=== PATIENT | female | born 1955 | race Caucasian/White ===

== ENCOUNTER → 2016-05-18 | Outpatient (CLI) | payer BC ==
[~2016-05-18] MED LIST: ADVIN50/60 INH; BACL10TA PO; CLON0.5T3 PO; DEXA2TAB PO; DIPH1TAB; FOLI1TAB7 PO; GABA-113 PO; HYDR-5688 PO; IPRASOL4 INH; KLN1X PO; LEVO150T9 PO; MAGIC1 PO; OPTIRAY 320 IV PRN; PRED10TA PO; PRLSR20 PO; SNG10 PO; SUMA20SP; SUMA6KIT INJ; TRAZ100T29 PO; VALA500T60 PO; XPNIN INH; ZNTT/150 PO; [UNRECOGNIZED DRUG - CODE] INJ
--- NOTE | 2016-05-18 10:22 | DIAGNOSTIC IMAGING REPORT ---
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 COMPARISON: Chest CT 11/14/2015. FINDINGS: There are again noted postoperative changes consistent with a prior left upper lobectomy. There are 2 new tiny groundglass nodules seen within the left lower lobe with the largest measuring 3 mm. These are seen on images 94 and 101 of 306. No focal lung consolidations to suggest pneumonia. Scarlike densities within the right lung apex remain unchanged. No suspicious lytic or blastic osseous lesions. No pleural or pericardial effusions. The spleen, adrenal glands, and pancreas are unremarkable. Multiple hypodense lesions seen scattered throughout the liver. These remain stable and likely represent cysts. Normal caliber thoracic aorta with no evidence for dissection. The central pulmonary arteries are patent. The heart is normal in size. Left hilar soft tissue thickening posterior to the left main pulmonary artery on image 87 is not significantly changed compared to a 2015 CT. This measures up to 9 mm in thickness. Therefore, this favors scarring given the long-term stability. No significant mediastinal or hilar lymphadenopathy. IMPRESSION: 1. There are 2 new groundglass nodule within the left lower lobe with the largest measuring 3 mm. These may represent small foci of inflammatory/infectious change. Short-term chest CT follow-up in 2-3 months can be performed to ensure resolution. 2. Otherwise, no significant change compared to the prior studies. 3. Stable soft tissue thickening posterior to the left main pulmonary artery which may represent scarring given the long-term stability. Electronically signed by: Daren Licona M.D. 05/18/2016 10:21 AM Dictated Date/Time: 05/18/2016 10:07 AM
== END | disposition home or self-care (01) ==
LOC: C.CTS 09:32
PROVIDERS: ATTEND Internal Medicine Pulmonary Disease
DX: C34.92 Malignant neoplasm of unspecified part of left bronchus or lung (principal)

== ENCOUNTER → 2016-05-31 | Outpatient (CLI) | payer BC ==
[~2016-05-31] MED LIST changes: -OPTIRAY 320 IV PRN
== END | disposition home or self-care (01) ==
LOC: C.LAB1850 11:39
PROVIDERS: ATTEND Internal Medicine Pulmonary Disease
DX: R04.2 Hemoptysis (principal)

== ENCOUNTER → 2016-06-25 | Outpatient (CLI) | payer BC ==
[2016-06-25 12:18] LABS: WHITE BLOOD COUNT 5.55 K/uL (4.8-10.8)
[2016-06-25 13:17] LABS: EOSINOPHIL % 2.6 %; NEUTROPHILS % 57.9 %
[2016-06-25 13:18] LABS: MDIFF REQUEST y
[2016-06-25 13:52] LABS: IMMUNOGLOBULN A 43.5 mg/dL (70-400); IMMUNOGLOBULN M 26.5 mg/dL (40-230)
[2016-06-30 12:51] LABS: IMMUNOGLOBULIN E TC 24620E 3 KU/L (<115); LSP % CELLS ANALYZED CD4 47 % (30-61); LSP % OF CELLS ANALYZED CD8 41 % (12-42); LSP ABSOLUTE COUNT CD8 651 cells/uL (180-1170); LSP ABSOLUTE CT CD4 736 cells/uL (490-1740); LSP CD4/CD8 RATIO 1.13 (0.86-5.00); LSP LYMPHOCYTES ABSOLUTE 1575 cells/uL (850-3900); PNEUMOCOCCAL IGG TYPE 1 3.2 mcg/mL; PNEUMOCOCCAL IGG TYPE 12(12F <0.3 mcg/mL; PNEUMOCOCCAL IGG TYPE 14 1.2 mcg/mL; PNEUMOCOCCAL IGG TYPE 19(19F 1.9 mcg/mL; PNEUMOCOCCAL IGG TYPE 23(23F <0.3 mcg/mL; PNEUMOCOCCAL IGG TYPE 26 (6B 1.6 mcg/mL; PNEUMOCOCCAL IGG TYPE 3 <0.3 mcg/mL; PNEUMOCOCCAL IGG TYPE 4 <0.3 mcg/mL; PNEUMOCOCCAL IGG TYPE 5 <0.3 mcg/mL; PNEUMOCOCCAL IGG TYPE 51 (7F 0.4 mcg/mL; PNEUMOCOCCAL IGG TYPE 56(18C 1.1 mcg/mL; PNEUMOCOCCAL IGG TYPE 68 (9V 0.5 mcg/mL; PNEUMOCOCCAL IGG TYPE 8 0.5 mcg/mL; PNEUMOCOCCAL IGG TYPE 9 (9N) <0.3 mcg/mL
== END | disposition home or self-care (01) ==
LOC: C.LAB 11:07
PROVIDERS: ATTEND Pediatrics Pediatric Allergy/Immunology
DX: T36.0X5A Adverse effect of penicillins, initial encounter (principal); X58.XXXA Exposure to other specified factors, initial encounter

== ENCOUNTER → 2016-07-19 | Outpatient (CLI) | payer BC | END | disposition home or self-care (01) | LOC: C.LAB1850 10:45 | PROVIDERS: ATTEND Allergy & Immunology Allergy | DX: R05 Cough (principal) ==

== ENCOUNTER → 2016-08-06 | Outpatient (CLI) | payer BC ==
[~2016-08-06] MED LIST changes: -DIPH1TAB; +DIPH1TAB87
--- NOTE | 2016-08-06 10:23 | DIAGNOSTIC IMAGING REPORT ---
CHEST 2 VIEWS ROUTINE CLINICAL HISTORY: Shortness of breath. Cough. Lung cancer. COMPARISON STUDY: Chest CT May 18, 2016. FINDINGS: Postsurgical findings within the left hemithorax with volume loss are unchanged. There is no consolidation to suggest pneumonia. No pneumothorax or pleural effusion is present. Cardiomediastinal silhouette is normal. IMPRESSION: 1. No acute cardiopulmonary findings. 2. No change in appearance of the chest with stable postoperative findings within the left hemithorax. Electronically signed by: Brandon Ragland M.D. 08/06/2016 10:22 AM Dictated Date/Time: 08/06/2016 10:21 AM
== END | disposition home or self-care (01) ==
LOC: C.RAD1850 10:05
PROVIDERS: ATTEND Physician Assistant Medical
DX: R06.02 Shortness of breath (principal); R05 Cough

== ENCOUNTER → 2016-08-11 | Outpatient (CLI) | payer BC ==
[~2016-08-11] MED LIST changes: +OPTIRAY 320 IV PRN
--- NOTE | 2016-08-11 09:59 | DIAGNOSTIC IMAGING REPORT ---
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 Images are reviewed in the axial, sagittal, and coronal planes. IV contrast was administered without complication. CT DOSE: 310.24 mGy.cm FINDINGS: Thyroid: No significant thyroid tissue is visualized Thoracic aorta: The thoracic aorta is normal in course and caliber, noting standard 3-vessel arch anatomy. No aneurysm or dissection is seen. Pulmonary vasculature: The pulmonary trunk is normal in caliber. There are no central filling defects identified to suggest pulmonary embolus. Note that this examination was not protocoled for the evaluation of pulmonary emboli. HEART: The heart is normal in size and configuration, without pericardial effusion. Lungs and pleural spaces: There are no pleural effusions. There is no focal pulmonary consolidation. There is right apical interstitial scarring. There are postsurgical changes of a left upper lobectomy. The previously described tiny groundglass left lower lobe pulmonary nodules are not visualized the current study. There is stable tiny calcified granulomas within the right lower lobe. Mediastinum: There is persistent precarinal soft tissue measuring 11 mm in short axis. This is equivocally more prominent. There is soft tissue posterior to the left pulmonary artery measuring 12 mm. This remain similar to the preceding study. Batsheva: There is no pathologic hilar adenopathy Axilla: Clear. Upper abdomen: Multiple hepatic cysts remain stable Skeletal structures: There are no lytic or blastic osseous lesions. IMPRESSION: 1. Mild increase in the size of a minimally enlarged precarinal lymph node 2. Stable soft tissue posterior to the left main pulmonary artery 3. The previously identified left lower lobe 3 mm groundglass pulmonary nodules are no longer visualized 4. Multiple hepatic cysts Electronically signed by: Bill Damon M.D. 08/11/2016 9:58 AM Dictated Date/Time: 08/11/2016 9:48 AM
== END | disposition home or self-care (01) ==
LOC: C.CTS 09:14
PROVIDERS: ATTEND Internal Medicine Pulmonary Disease
DX: C34.92 Malignant neoplasm of unspecified part of left bronchus or lung (principal); R59.0 Localized enlarged lymph nodes; K76.89 Other specified diseases of liver

== ENCOUNTER → 2016-09-06 | Outpatient (CLI) | payer BC ==
[~2016-09-06] MED LIST changes: -OPTIRAY 320 IV PRN
--- NOTE | 2016-09-06 10:39 | DIAGNOSTIC IMAGING REPORT ---
PET/CT SKULL-THIGH CLINICAL HISTORY: LUNG CANCER COMPARISON STUDY: 03/24/2015 FINDINGS: The patient was injected with 14 mCi of F 18 labeled FDG. Following the standard induction phase, PET/CT scanning was performed from the skull base the upper thigh region. Activity within neck is felt to be physiologic. Within the chest, there is intensely FDG avid right paratracheal lymph node measuring 1 cm in short axis. This has an SUV maximum of 9.2. There is also an intensely FDG avid focus located posterior to the left main pulmonary artery. This is difficult to measure, but its estimated size is 10 mm in short axis. This has an SUV maximum of 12.2. There are no FDG avid parenchymal nodules. There are subtle airspace opacities within the left upper lobe and left lower lobe. These were not present on the CT scan performed in August 2016. These are therefore likely inflammatory. Within the abdomen and pelvis, there is no pathologic hepatic or adrenal gland activity. There is stable hepatic hypodensities likely representing cysts. There is physiologic urinary tract and bowel activity. There is no pathologic thuy activity. There is no pathologic skeletal activity. IMPRESSION: 1. Intensely FDG avid 1 cm right paratracheal lymph node with SUV maximum of 9.2. A neoplastic etiology is deemed likely 2. Intensely FDG avid soft tissue nodule located posterior to the left main pulmonary artery measuring 1 cm. This is an SUV maximum of 12.2. A neoplastic etiology is deemed a likely. 3. Interval development of mild left upper lobe and left lower lobe airspace opacities, likely inflammatory. Electronically signed by: Bill Damon M.D. 09/06/2016 10:38 AM Dictated Date/Time: 09/06/2016 10:27 AM
== END | disposition home or self-care (01) ==
LOC: C.PET 07:13
PROVIDERS: ATTEND Internal Medicine Hematology & Oncology
DX: C34.92 Malignant neoplasm of unspecified part of left bronchus or lung (principal)

== ENCOUNTER 2016-09-27 10:00 | Observation (INO) | payer BC ==
[2016-09-22 15:39] VITALS: BMI 31.0
[2016-09-27] VITALS (18 sets, daily range): BP systolic 95–124; BP diastolic 58–83; PULSE 61–99; TEMP 36–37.5; O2SAT 91–100; Ht 162.6 cm; Wt 83.2 kg
[~2016-09-27] VITALS: Ht 162.6 cm; Wt 83.2 kg
[~2016-09-27 10:00] MED LIST changes: -DEXA2TAB PO; -DIPH1TAB87; -FOLI1TAB7 PO; -KLN1X PO; -MAGIC1 PO; -PRED10TA PO
[2016-09-27] MEDS ORDERED: DIPH1TAB87 ×2 (10:29)
[2016-09-27] MEDS ORDERED: ONDANSETRON INJ 2 MG/ML 2 ML VIAL ONE (10:31)
[2016-09-27] MEDS ORDERED: DEXAMETHASONE SOD INJ 4 MG/ML VIAL ONE (10:31)
[2016-09-27] MEDS ORDERED: GLYCOPYRROLATE INJ 0.2 MG/ML VIAL ONE (10:31)
[2016-09-27] MEDS ORDERED: LIDOCAINE HCL 2% 2 ML VIAL (20MG/ML) ONE (10:31)
[2016-09-27] MEDS ORDERED: MIDAZOLAM HCL 1 MG/ML 2ML VIAL ONE (10:31)
[2016-09-27] MEDS ORDERED: ROCURONIUM BROMIDE 10 MG/ML 5 ML VIAL ONE (10:31)
[2016-09-27] MEDS ORDERED: PROPOFOL IV EMULSION 10 MG/ML 20 ML VIAL IV ONE (10:31)
[2016-09-27] MEDS ORDERED: NEOSTIGMINE METHYLSULFATE 5 MG/5 ML SYR ONE (10:31)
[2016-09-27] MEDS ORDERED: FENTANYL CITRATE INJ 50 MCG/1 ML 2 ML VIAL ONE (10:31)
[2016-09-27] MEDS: LACTATED RINGER'S 1000ML 1,000 ML IV SCH ×2 (11:00→19:25)
--- NOTE | 2016-09-27 11:04 | History & Physical Bridge Note ---
H&P Re-Evaluation Bridge Note: I have examined the patient, reviewed the History & Physical and in the interval since the performance of the History & Physical I have noted the following changes of clinical significance: No changes noted
[2016-09-27] MEDS ORDERED: SCOPOLAMINE 1.5 MG TDSY TD ONE ×2 (11:23→11:30)
[2016-09-27] MEDS ORDERED: EpHEDrine SULFATE INJ 50 MG/ML AMP IV PRN (11:30)
[2016-09-27] MEDS ORDERED: FENTANYL CITRATE INJ 50 MCG/1 ML 2 ML VIAL IV PRN (11:30)
[2016-09-27] MEDS ORDERED: ATROPINE SULFATE 0.1 MG/ML 5ML SYR IV PRN (11:30)
--- NOTE | 2016-09-27 12:04 | Discharge Instructions ---
Discharge Instructions Date of Service September 27, 2016. Visit Reason for Visit: Abnormal Ct Scan, History Of Lung Cancer Discharge Discharge Diagnosis / Problem: Abnormal Ct Scan, History Of Lung Cancer Discharge Goals Goal(s): Learn about illness Activity Recommendations Activity Limitations: resume your previous activity (in 24 hours) Anesthesia . Post Anesthesia Instructions: If you have had General Anesthesia or IV Sedation: * Do not drive today. * Resume driving when surgeon permits. * Do not make important decisions or sign legal documents today. * Call surgeon for: 1. Temperature elevations greater than 101 degrees F. 2. Uncontrollable pain. 3. Excessive bleeding. 4. Persistent nausea and vomiting. 5. Medication intolerance (nausea, vomiting or rash). * For nausea and vomiting use only clear liquids such as: tea, soda, bouillon until nausea subsides, then gradually increase diet as tolerated. * If you have any concerns or questions, call your surgeon's office. If physician is unavailable and it is an emergency, call 911 or go to the nearest emergency room. . Instructions / Follow-Up Instructions / Follow-Up 1. You may cough up some blood. Call physician if excessive amount noted. 2. Keep your scheduled appointment with Dr. Chambers on October 05, 2016 @ 9:30 am. Diet Recommendations Recommended Home Diet: resume previous diet Procedures Procedures Performed: Endobronchial ultrasound with biopsies Pending Studies Studies pending at discharge: no Medical Emergencies . Who to Call and When: Medical Emergencies: If at any time you feel your situation is an emergency, please call 911 immediately. . Non-Emergent Contact Non-Emergency issues call your: Surgeon Call Non-Emergent contact if: you have a fever . . "Provider Documentation" section prepared by Roddy Reyes. .
--- NOTE | 2016-09-27 13:30 | Anesthesiology Progress Note ---
Anesthesia Post Op Note Date & Time September 27, 2016 at 13:30 Vital Signs Pain Intensity: 0 Vital Signs Past 12 Hours Date Time Temp Pulse Resp B/P Pulse Ox O2 Delivery O2 Flow Rate FiO2 09/27/16 13:05 74 20 113/78 94 Room Air 09/27/16 12:55 79 20 104/74 100 Mask 10 09/27/16 12:45 81 20 111/63 100 Mask 10 09/27/16 12:36 36. 86 20 106/72 99 Mask 10 09/27/16 11:32 61 14 94 Room Air 09/27/16 10:29 36.6 77 18 119/62 98 Room Air Notes Mental Status: alert / awake / arousable, participated in evaluation Pt Amnestic to Procedure: Yes Nausea / Vomiting: adequately controlled Pain: adequately controlled Airway Patency, RR, SpO2: stable & adequate BP & HR: stable & adequate Hydration State: stable & adequate Anesthetic Complications: no major complications apparent
--- NOTE | 2016-09-27 13:37 | DIAGNOSTIC IMAGING REPORT ---
CHEST ONE VIEW PORTABLE CLINICAL HISTORY: s/p EBUS COMPARISON STUDY: Chest CT August 11, 2016. FINDINGS: Mediastinal surgical clips are noted. There is no pneumothorax. No pneumomediastinum is identified. Cardiomediastinal silhouette is stable. There is no evidence of pulmonary edema. IMPRESSION: No pneumothorax identified. Electronically signed by: Brandon Ragland M.D. 09/27/2016 1:36 PM Dictated Date/Time: 09/27/2016 1:35 PM
[2016-09-27] MEDS ORDERED: ACETAMINOPHEN 325 MG TAB PO PRN (15:00)
[2016-09-27] MEDS ORDERED: LEValbuterol HFA 15GM INHALER INH PRN (15:00)
[2016-09-27] MEDS ORDERED: HYDROCODONE/ACETAMOPHEN 5/325MG TAB PO PRN (15:00)
[2016-09-27] MEDS ORDERED: SUMATRIPTAN SUCCINATE 6 MG/0.5 ML VIAL SC PRN (15:00)
[2016-09-27] MEDS ORDERED: BACLOFEN 10 MG TAB PO PRN (15:00)
[2016-09-27] MEDS ORDERED: ALBUT/IPRATROP 3MG/0.5MG NEB 3 ML VIAL INH PRN (15:00)
[2016-09-27] MEDS ORDERED: ONDANSETRON INJ 2 MG/ML 2 ML VIAL IV PRN (15:00)
[2016-09-27] MEDS ORDERED: CLONAZEPAM 0.5 MG TAB PO PRN (15:00)
[2016-09-27] MEDS ORDERED: [UNRECOGNIZED DRUG - REMARK] INJ SCH (15:00)
[2016-09-27 17:47] LABS: PARTIAL THROMBOPLASTIN RATIO 1.1; PROTHROMBIN TIME (PATIENT) 10.6 SECONDS (9.0-12.0)
[2016-09-27] MEDS ORDERED: IV FLUIDS COMPLETED PRN (18:00)
[2016-09-27] MEDS ORDERED: ENOXAPARIN 40 MG/0.4 ML SYR SQ SCH (18:30)
[2016-09-27] MEDS ORDERED: ACETAMINOPHEN IV 1000MG/100ML IV PRN (19:15)
[2016-09-27] MEDS ORDERED: NURSING VERBAL MED ORDER ONE (19:15)
[2016-09-27] MEDS ORDERED: LIDOCAINE HCL 2% VISC SOLN 20 ML UDC PO PRN (19:30)
[2016-09-27] MEDS ORDERED: TRAZODONE HCL 100 MG TAB PO SCH (21:00)
[2016-09-27] MEDS ORDERED: MONTELUKAST SOD 10 MG TAB PO SCH (21:00)
[2016-09-27] MEDS: FLUTICASONE/SALMETEROL (ADVAIR) 500/50 INH 14 PUFF INH SCH (21:52)
[2016-09-27] MEDS: GABAPENTIN 300 MG CAP PO SCH (21:58)
[2016-09-27] MEDS: RANITIDINE HCL 150 MG TAB PO SCH (21:59)
--- NOTE | 2016-09-28 01:27 | OPERATIVE REPORT ---
DATE OF OPERATION: 09/27/2016 PREOPERATIVE DIAGNOSES: 1. Hypermetabolic mediastinal lymphadenopathy. 2. History of left upper lobectomy for stage IIIA lung carcinoma 3 years ago. POSTOPERATIVE DIAGNOSES: Probable metastatic lung carcinoma, mediastinal lymph node. PROCEDURE: Endobronchial ultrasound with biopsy. SURGEON: Jani BUNN MD. ELECTROMYOGRAPHIC TECHNICIAN: Kunal Soliz, Respiratory Therapy. ANESTHESIA: General anesthesia with a laryngeal mask airway. SPECIFICS OF PROCEDURE: This is a 61-year-old female who has a history of left upper lobe carcinoma resected via thoracotomy 3 years ago. Her level 5 node was found to be positive for carcinoma. The patient also suffered a vocal cord paralysis, and this was removed. She did undergo an injection, and her voice was nice and strong in the office. The patient was found to have a mediastinal lymphadenopathy. PET scan showed hypermetabolic activity. I was asked to evaluate her for an endobronchial ultrasound by Dr. Jani Castaneda and Dr. Ricardo Villaseñor. We brought her in to have this done this morning. She underwent an uncomplicated endobronchial ultrasound. She had no endobronchial lesions. The rapid onsite evaluation felt that the right level 2, right level 4 and left level 11 were all suspicious for carcinoma. We did get lymph nodes back with several lymph biopsies. Tolerated it well. PROCEDURE: The patient was brought to the operating room and placed in supine position. General anesthesia induced, and a laryngeal mask airway was placed. After appropriate timeout had been called, and prophylactic antibiotics given, the endobronchial ultrasound was placed. Getting above the cords, it did not appear that she had movement of the left vocal cord, but it has been medialized. She did have a good cough with this, and I did anesthetize her with lidocaine. We then went into the trachea, and there were no endobronchial lesions noted going down to tertiary airways and slowly coming back. There was really no mucus noted either. I then switched to use the ultrasound to localize a right level 2 node which was rather small, but we were able to biopsy this several times. We then went down to a larger level 4 node and biopsied this several times. I then switched over to the left side, this was fairly easy node to biopsy at the level 11 area medially. All of these lymph nodes were suspicious for carcinoma. We really got into no bleeding with this. I irrigated out both airways and slowly pulled back the bronchoscope. There was no significant bleeding or mucus formation. She tolerated it well. The laryngeal mask airway was removed in the operating room. I attest to the content of the Intraoperative Record and any orders documented therein. Any exceptions are noted below. KEO
[2016-09-28 05:45] VITALS: BP 109/73; PULSE 87; TEMP 36.7; O2SAT 97
[2016-09-28] MEDS ORDERED: LEVOTHYROXINE 125 MCG TAB PO SCH (06:00)
[2016-09-28 07:32] VITALS: BP 109/70; PULSE 78; TEMP 36.7; O2SAT 96
--- NOTE | 2016-09-28 08:12 | Anesthesiology Progress Note ---
Anesthesia Post Op Note Date & Time September 28, 2016 at 08:13 Vital Signs Vital Signs Past 12 Hours Date Time Temp Pulse Resp B/P Pulse Ox O2 Delivery O2 Flow Rate FiO2 09/28/16 07:32 36.7 78 16 109/70 96 Room Air 09/28/16 05:45 36.7 87 16 109/73 97 Room Air 09/28/16 00:15 Room Air 09/27/16 22:55 36.6 99 16 98/63 94 Room Air 09/27/16 21:50 97 Room Air 09/27/16 20:16 95 Room Air Notes Mental Status: alert / awake / arousable, participated in evaluation Pt Amnestic to Procedure: Yes Nausea / Vomiting: adequately controlled Pain: adequately controlled Airway Patency, RR, SpO2: stable & adequate BP & HR: stable & adequate Hydration State: stable & adequate Anesthetic Complications: no major complications apparent
[2016-09-28] MEDS: FLUTICASONE/SALMETEROL (ADVAIR) 500/50 INH 14 PUFF INH SCH (08:31)
[2016-09-28] MEDS: GABAPENTIN 300 MG CAP PO SCH (08:32)
[2016-09-28] MEDS: RANITIDINE HCL 150 MG TAB PO SCH (08:33)
[2016-09-28] MEDS ORDERED: ENOXAPARIN 40 MG/0.4 ML SYR SQ SCH (09:00)
[2016-09-28] MEDS ORDERED: PANTOprazole SOD 40 MG TAB PO SCH (09:00)
--- NOTE | 2016-09-28 09:57 | DISCHARGE SUMMARY ---
HOSPITAL COURSE: Angle Cedeno is a very nice 61-year-old female who underwent a left upper lobectomy for a nonsmall cell lung carcinoma almost 3 years ago in 2013. She is under the care of Dr. Ricardo Villaseñor from an oncology standpoint. The patient presented back as she had hypermetabolic lymph nodes, but really no symptoms except for a persistent cough. On 09/27/2016, I brought the patient in and did an endobronchial ultrasound. I biopsied the right level 2, right level 4, left level 11 lymph node areas. I get that there are lymphocytes and suspicious cells on each level. The patient tolerated this fine. We did use a laryngeal mask airway and did not intubate her. Her left cord did not move well, but this is a chronic problem. At this point, I removed her laryngeal mask airway and she appeared to do fine. The problem was she was wheezing and relatively hypoxic with a sat of 88%. She was also very anxious. She did not improve over several hours, so I admitted her for observation. She was brought up on the third floor. She really did not have much of a gag reflex. It is unclear to me why this was the case, but she was not aspirating and tolerated a breakfast in the morning afterwards. I ended up discharging her on the morning after. She was brought into the hospital under an observational status. She looked fine in the next morning. She really had minimal wheezing in her left base but otherwise she looked quite good and was ready to go home. I explained to her that the cells were suspicious. We would have a more definitive answer next week. I will see her back next week in the office. She is to resume all of her regular medications.
[2016-09-28 11:11] VITALS: BP 105/68; PULSE 84; TEMP 36.8; O2SAT 97
[2016-09-28 11:51] VITALS: BP 105/68; PULSE 84; TEMP 36.8; O2SAT 97
[2016-10-08] MEDS ORDERED: FOLI1TAB7 PO (09:55)
[2016-10-08] MEDS ORDERED: DEXA2TAB PO (09:55)
[2016-11-22] MEDS ORDERED: MAGIC1 PO (13:10)
[2017-01-05] MEDS ORDERED: PRED10TA PO (13:57)
== END 2016-09-28 14:29 | disposition home or self-care (01) ==
LOC: ENRESERVTM → ENRESERVDT → C.ACU 10:00 → C.MSW 10:20
PROVIDERS: ADMIT Surgery; ATTEND Surgery
DX: C79.89 Secondary malignant neoplasm of other specified sites (principal); R59.0 Localized enlarged lymph nodes; R05 Cough; J39.8 Other specified diseases of upper respiratory tract; Z85.118 Personal history of other malignant neoplasm of bronchus and lung; Z80.52 Family history of malignant neoplasm of bladder; Z80.42 Family history of malignant neoplasm of prostate; J45.909 Unspecified asthma, uncomplicated; K21.9 Gastro-esophageal reflux disease without esophagitis; E03.9 Hypothyroidism, unspecified; Z90.2 Acquired absence of lung [part of]; Z82.3 Family history of stroke; Z83.3 Family history of diabetes mellitus; F41.9 Anxiety disorder, unspecified; G47.33 Obstructive sleep apnea (adult) (pediatric); M19.90 Unspecified osteoarthritis, unspecified site; Z86.73 Personal history of transient ischemic attack (TIA), and cerebral infarction without residual deficits; D84.8 Other specified immunodeficiencies

== ENCOUNTER → 2016-10-01 | Outpatient (CLI) | payer BC ==
[~2016-10-01] MED LIST changes: +DEXA2TAB PO; +DIPH1TAB87; +FOLI1TAB7 PO; +MAGIC1 PO; +PRED10TA PO
== END | disposition home or self-care (01) ==
LOC: C.PATHSPEC 10:43
PROVIDERS: ATTEND Pathology Anatomic Pathology & Clinical Pathology
DX: C34.90 Malignant neoplasm of unspecified part of unspecified bronchus or lung (principal)

== ENCOUNTER → 2016-10-11 | Outpatient (CLI) | payer BC | END | disposition home or self-care (01) | LOC: C.LAB 16:36 | PROVIDERS: ATTEND Pediatrics Pediatric Allergy/Immunology | DX: D83.9 Common variable immunodeficiency, unspecified (principal) ==

== ENCOUNTER → 2016-10-13 | Outpatient (CLI) | payer BC ==
[~2016-10-13] MED LIST changes: +OPTIRAY 320 IV PRN
--- NOTE | 2016-10-13 09:49 | DIAGNOSTIC IMAGING REPORT ---
CT SCAN OF THE BRAIN COMBO CLINICAL HISTORY: Headache. Lung cancer history. COMPARISON STUDY: MRI of the brain dated 11/15/2013. CT of the brain dated 11/15/2008. TECHNIQUE: Axial CT scan of the brain is performed from the vertex to the skull base before and following the IV administration of 93 cc of Optiray 320. Automated dose control exposure was utilized. CT DOSE: 1277.12 mGycm FINDINGS: Brain parenchyma: The brain parenchyma is normal in appearance. There is no hemorrhage, mass effect, or evidence of acute territorial ischemia by CT criteria. No enhancing lesion is seen on the postcontrast images. Booker-white matter is preserved. No extra-axial fluid collection is seen. Ventricles, sulci, cisterns: Normal in configuration. Intracranial vasculature: There is atherosclerotic calcification of the cavernous carotid arteries. Calvarium: Unremarkable. Sinuses and mastoids: The visualized paranasal sinuses are clear. The mastoid air cells are well pneumatized. Orbits: The bony orbits are grossly intact. IMPRESSION: There is no hemorrhage, enhancing mass, or evidence of acute territorial ischemia by CT criteria. Electronically signed by: Raul Grider M.D. 10/13/2016 9:47 AM Dictated Date/Time: 10/13/2016 9:40 AM
== END | disposition home or self-care (01) ==
LOC: C.CTS 09:18
PROVIDERS: ATTEND Internal Medicine Hematology & Oncology
DX: C34.12 Malignant neoplasm of upper lobe, left bronchus or lung (principal)

== ENCOUNTER → 2016-12-31 | Outpatient (CLI) | payer BC ==
[~2016-12-31] MED LIST changes: +DIPH1TAB; -DIPH1TAB87; -OPTIRAY 320 IV PRN
--- NOTE | 2016-12-31 12:37 | DIAGNOSTIC IMAGING REPORT ---
TWO VIEW CHEST CLINICAL HISTORY: Non-small cell lung cancer. FINDINGS: PA and lateral chest radiographs are compared to study dated 09/27/2016 and correlated with chest CT dated 08/11/2016. The heart is mildly enlarged and there is atherosclerotic calcification of the thoracic aorta. The pulmonary vasculature is noncongested. There are postoperative changes and volume loss in the left lung consistent with a history of left-sided pulmonary resection. There is mild compensatory hyperinflation of the right lung. There is no airspace consolidation typical for pneumonia. No pleural effusion or pneumothorax is seen. Mild apical scarring is again noted. The skeletal structures are osteopenic. The bony thorax appears intact. Thoracic scoliosis is observed. IMPRESSION: Mild cardiac enlargement and postoperative changes from left-sided pulmonary resection as above. There is no acute cardiopulmonary abnormality and there has been no significant change from 09/27/2016. Electronically signed by: Raul Grider M.D. 12/31/2016 12:36 PM Dictated Date/Time: 12/31/2016 12:34 PM
== END | disposition home or self-care (01) ==
LOC: C.RAD 11:58
PROVIDERS: ATTEND Internal Medicine Hematology & Oncology
DX: C34.12 Malignant neoplasm of upper lobe, left bronchus or lung (principal); R06.00 Dyspnea, unspecified; Z90.2 Acquired absence of lung [part of]; Z79.899 Other long term (current) drug therapy

== ENCOUNTER → 2017-01-03 | Outpatient (CLI) | payer BC ==
[~2017-01-03] MED LIST changes: +OPTIRAY 320 IV PRN
--- NOTE | 2017-01-03 16:12 | DIAGNOSTIC IMAGING REPORT ---
CT OF THE ABDOMEN AND PELVIS WITH CONTRAST CLINICAL HISTORY: Lung cancer. COMPARISON STUDY: PET/CT September 06, 2016 TECHNIQUE: Following IV administration of 92 mL of Optiray-320, axial images of the abdomen and pelvis were obtained from the lung bases to the proximal femurs. Images were reviewed in the axial, sagittal, and coronal planes. IV contrast was administered without complication. A dose lowering technique was utilized adhering to the principles of ALARA. Oral contrast was administered. CT DOSE: 673.06 mGy.cm FINDINGS: The chest will be reported separately. Numerous hepatic lesions are noted. The larger lesions measure water attenuation and are consistent with cysts. The smaller lesions are too small characterize but were present on prior exams. These are benign. The spleen, adrenal glands, kidneys and pancreas are normal with exception of numerous subcentimeter renal lesions which are too small to characterize. However, these are likely benign. The caliber and wall thickness of small and large bowel are normal. There is no abdominal or pelvic lymphadenopathy. There is no ascites. There is no evidence for a bowel obstruction. No biliary or pancreatic ductal dilatation is identified. The uterus is not visualized. The appendix is normal. No suspicious skeletal lesions are identified. IMPRESSION: No evidence of metastatic disease within the abdomen or pelvis. Electronically signed by: Brandon Ragland M.D. 01/03/2017 4:11 PM Dictated Date/Time: 01/03/2017 4:05 PM
--- NOTE | 2017-01-03 16:18 | DIAGNOSTIC IMAGING REPORT ---
CHEST CT WITH CONTRAST HISTORY: Lung cancer follow-up study TECHNIQUE: Multiaxial CT images of the chest were performed following the intravenous administration of contrast. A dose lowering technique was utilized adhering to the principles of ALARA. COMPARISON: PET/CT 09/06/2016, CT chest 08/11/2016. FINDINGS: No dominant thyroid nodule identified. There is been interval decrease in size of the previously noted right paratracheal lymph node, previously 1.7 x 1.1 cm, now measuring 1.1 x 0.5 cm. Previously noted focal soft tissue attenuation within the region of the AP window has also decreased in size, previously 2.0 x 1.2 cm, now 1.4 x 0.8 cm. Surgical suture material is now seen within this distribution. No new pathologic adenopathy identified. Heart is normal in size without pericardial effusion. Thoracic aorta is normal in course and caliber without dissection or aneurysm. Pulmonary arterial tree is not well opacified, however demonstrates no focal filling defects to suggest pulmonary embolus. No pneumothorax, pleural effusion or focal airspace consolidation. No suspicious nodules or pulmonary masses are identified. There is mild subsegmental bibasilar atelectasis. Post surgical changes of prior left upper lobectomy are again noted the central airways are patent. Multiple hepatic cysts are redemonstrated. Soft tissues are unremarkable. There is oral contrast the upper abdomen. No suspicious lytic or blastic bony lesions to suggest metastasis. There is mild convex right curvature of the midthoracic spine. IMPRESSION: 1. No acute intrathoracic abnormality identified. No evidence of metastatic disease or new adenopathy. 2. Postsurgical changes of prior left upper lobectomy. Interval decrease in size of the previously noted FDG avid right paratracheal lymph node. Previously noted intensely FDG avid soft tissue nodule posterior to the left main pulmonary artery has also markedly decreased in size suggesting response to therapy. 3. Multiple hepatic cysts redemonstrated. Electronically signed by: Francisco Javier Hussein M.D. 01/03/2017 4:16 PM Dictated Date/Time: 01/03/2017 4:08 PM
== END | disposition home or self-care (01) ==
LOC: C.CTS 15:32
PROVIDERS: ATTEND Internal Medicine Hematology & Oncology
DX: C34.12 Malignant neoplasm of upper lobe, left bronchus or lung (principal); K76.89 Other specified diseases of liver

== ENCOUNTER → 2017-01-05 | Outpatient (CLI) | payer BC ==
[~2017-01-05] MED LIST changes: -OPTIRAY 320 IV PRN
[2017-01-05 13:35] VITALS: BP 104/69; PULSE 93; TEMP 36.9; O2SAT 100
--- NOTE | 2017-01-05 16:17 | Radiation Oncology Follow-Up ---
Radiation Oncology Follow-Up Date of Visit Jan 05, 2017. 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 Alejandre is a pleasant 61-year-old female who was initially diagnosed with lung cancer in 2013. The patient initially presented with a cough and bronchitis and did have a chest x-ray completed on 10/23/2013 which revealed a 2.8 cm nodular density in the superior aspect of the aortic knob that could represent a pulmonary mass. The patient was seen and evaluated by Dr. Torres from pulmonary medicine. The patient did have a CT of the thorax completed on 2016 which revealed a 3.3 cm left upper lobe mass abutting the aortic arch that was highly suggestive of primary bronchogenic carcinoma with no evidence of mediastinal adenopathy. The patient underwent a bronchoscopy by Dr. Kunal Torres on 11/01/2013 which confirmed non-small cell lung carcinoma by brushings. The patient underwent a PET/CT scan on 11/12/2013 which revealed markedly FDG uptake within the 3.8 cm left upper lobe mass consistent with non-small cell lung cancer; the mass abuts the mediastinum with loss of fat plane between the mass in the aortic arch. The scan also showed moderate left suprahilar FDG uptake suspicious for thuy spread of disease. The patient underwent a left upper lobectomy and lymph node resection on 2013. Pathology revealed adenosquamous carcinoma that was moderately differentiated and measured 3.5 cm in the greatest dimension in the left upper lobe; the tumor involved the visceral pleura and all the margins were negative however there was evidence for lymphovascular space invasion. Lymph nodes were resected from levels 8, 9, 5 and 10; metastatic carcinoma was identified in the left level 5 and peribronchial lymph nodes on lobectomy. The largest thuy metastasis was 2.6 cm with no evidence of extranodal extension. The patient was treated with chemotherapy underneath the supervision of Dr. Ricardo Villaseñor and received 4 cycles of carboplatin and Taxol chemotherapy which completed in March 2014. The patient has been underneath close surveillance with imaging studies with no significant change in scans until May 2016. The patient underwent a CT of the thorax on 05/18/2016 which revealed 2 new groundglass nodules within the left lower lobe measuring 3 mm. The patient had a short interval follow-up CT of the chest on 08/11/2016 which revealed mild increase in the size of a minimally enlarged precarinal lymph node and stable soft tissue posterior to the left main pulmonary artery; the previously identified left lower lobe 3 mm groundglass pulmonary nodules are no longer visualized. The patient underwent a PET/CT scan on 09/06/2016 revealed an intensely FDG avid 1 cm right paratracheal lymph node with maximum SUV of 9.2, intensely FDG avid soft tissue nodule located posterior in the left main pulmonary artery measuring 1 cm with maximum SUV of 12.2 and interval development of left upper lobe/left lower lobe air space opacities that are likely inflammatory. The patient was referred to Dr. Jani Chambers who performed a endobronchial ultrasound and bronchoscopy on 09/27/2016. At the time of the procedure, Dr. Chambers did biopsy a R2 lymph node that was positive for metastatic carcinoma consistent with metastatic non-small cell lung carcinoma. Additionally, he also biopsied an R4 lymph node which was also positive for metastatic carcinoma consistent with metastatic non-small cell lung carcinoma. Dr. Chambers did also biopsy a 11L lymph node which was negative for metastatic carcinoma. The patient was seen by Dr. Ricardo Villaseñor for medical oncology who is recommended consideration of definitive chemotherapy and radiation therapy. We are now seeing the patient in consultation discuss the role of radiation therapy. The patient states that she is doing okay overall. She continues to have some exertional dyspnea. She denies any hemoptysis, fevers, chills. She does complain of some night sweats. She notes that she had on to 30 pound weight loss over the last 6-7 months. She underwent combined radiation and chemotherapy. Radiation was completed . She received 6000 cGy. Interim History She is steadily improving. She did require IV fluids for hydration through medical oncology. Following treatment she had a foreign body sensation in her throat. She periodically continues to use the Magic mouthwash. This does help. A foreign body sensation is steadily improving. For the dysphagia she had been given a fentanyl patch. She was able to finish this proximally 2 weeks ago. She feels her respiratory status is stable. She does have excess phlegm. She'll be seen at [facility] at the end of January. She did have a recheck CT scan 01/03/2017 and would like to review those results. Allergies Coded Allergies: Cephalosporins (Verified Allergy, Intermediate, ITCHINESS, RASH, 09/27/16) Sulfa Antibiotics (Verified Allergy, Unknown, ITCHY/RASH TO SULFA DRUGS, ) Home Medications Scheduled Clonazepam (Klonopin), 0.5 MG PO PRN Diphenhy/Alum/Mag/Sucralfa (Magic Swizzle - Diphenhy/Alum/Mag/Sucralfa), 1 TSP PO TID Fluticasone Prop/Salmeterol (Advair Diskus 500/50 60 Dose), 1 PUFFS INH BID Folic Acid (Folvite), 1 TAB PO DAILY Gabapentin (Neurontin), 600 MG PO BID Immune Globulin (Human) Iv Or (Gamunex-C), 4 MG INJ WEEKLY Levothyroxine Sodium (Levothyroxine Sodium), 125 MCG PO QAM Montelukast Sod (Montelukast Sodium), 10 MG PO HS Omeprazole (Prilosec), 40 MG PO QAM Prednisone (Prednisone), 10 MG PO DAILY Ranitidine (Zantac), 300 MG PO BID Trazodone Hcl (Trazodone), 150 MG PO HS Valacyclovir (Valtrex), 500 MG PO QAM Scheduled PRN Baclofen (Lioresal), 10 MG PO BID PRN for SPASMS Diphenhydramine Hcl (Benadryl Allergy), for SOB/Wheezing Hydrocodone/Acetaminophen 5MG/325MG ([place] 5MG/325MG), 1 TABLET PO Q6H PRN for Pain Ipratropium-Albuterol (Duoneb), 1 TREATMENT INH QID PRN for SOB/Wheezing Levalbuterol Tartrate (Xopenex Hfa), 2 PUFF INH QID PRN for SOB/Wheezing Sumatriptan Succinate (Imitrex Statdose), 0.5 ML INJ UD PRN for Migraine Sumatriptan Succinate (Imitrex Nasal [place]), 1 SPRAY NA UD PRN for Migraine Review of Systems Gastrointestinal: Symptoms: Nausea GI Comments: Nausea comes and goes - zofran PRN Oral: Symptoms: No Problems, Thick/Viscid/Mucid Saliva Other Oral Symptoms: Uses magic mouthwash PRN & Biotene, "Lump in throat" Respiratory: Symptoms: Moist Cough, SOB With Exertion Sputum Character: Productive cough at times of thick clear sputum Urinary: Symptoms: WNL Skin: Symptoms: No Problems Additional Notes: She completed a distress management report and answered "no" to all questions. Physical Exam Vital Signs Date Time Temp Pulse Resp B/P (MAP) Pulse Ox O2 Delivery O2 Flow Rate FiO2 01/05/17 13:35 36.9 93 16 104/69 100 Fatigue: None General Appearance: no apparent distress Eyes: normal inspection, EOMI ENT: normal ENT inspection, hearing grossly normal Neck: no adenopathy, thyroid normal Respiratory/Chest: lungs clear, no respiratory distress, no accessory muscle use, + pertinent finding (inspiration provokes cough) Cardiovascular: regular rate, rhythm, no gallop, no murmur Extremities: no pedal edema Neurologic/Psychiatric: no motor/sensory deficits, alert, normal mood/affect Skin: warm/dry Laboratory Studies Test 10/11/16 16:50 11/04/16 14:17 11/17/16 12:44 12/15/16 14:59 Immunoglobulin G 650.0 mg/dL (700-1600) Large Platelets 1+ Helmet Cells OCCASIONAL Hypersegmented Polys 1+ Platelet Estimate DECREASED Lactate Dehydrogenase 340 U/L (84-246) Test 12/22/16 11:47 12/30/16 15:15 White Blood Count 4.17 K/uL (4.8-10.8) 2.91 K/uL (4.8-10.8) Red Blood Count 3.25 M/uL (4.2-5.4) 3.86 M/uL (4.2-5.4) Hemoglobin 10.2 g/dL (12.0-16.0) 11.8 g/dL (12.0-16.0) Hematocrit 31.4 % (37-47) 36.0 % (37-47) Mean Corpuscular Volume 96.6 fL (80-100) 93.3 fL (80-100) Mean Corpuscular Hemoglobin 31.4 pg (25-34) 30.6 pg (25-34) Mean Corpuscular Hemoglobin Concent 32.5 g/dl (32-36) 32.8 g/dl (32-36) Platelet Count 174 K/uL (130-400) 123 K/uL (130-400) Mean Platelet Volume 9.5 fL (7.4-10.4) 10.6 fL (7.4-10.4) Neutrophils (%) (Auto) 78.2 % 61.9 % Lymphocytes (%) (Auto) 16.3 % 27.8 % Monocytes (%) (Auto) 4.6 % 5.8 % Eosinophils (%) (Auto) 0.7 % 4.5 % Basophils (%) (Auto) 0.0 % 0.0 % Neutrophils # (Auto) 3.26 K/uL (1.4-6.5) 1.80 K/uL (1.4-6.5) Lymphocytes # (Auto) 0.68 K/uL (1.2-3.4) 0.81 K/uL (1.2-3.4) Monocytes # (Auto) 0.19 K/uL (0.11-0.59) 0.17 K/uL (0.11-0.59) Eosinophils # (Auto) 0.03 K/uL (0-0.5) 0.13 K/uL (0-0.5) Basophils # (Auto) 0.00 K/uL (0-0.2) 0.00 K/uL (0-0.2) RDW Standard Deviation 65.6 fL (36.4-46.3) 55.8 fL (36.4-46.3) RDW Coefficient of Variation 18.9 % (11.5-14.5) 16.3 % (11.5-14.5) Immature Granulocyte % (Auto) 0.2 % 0.0 % Immature Granulocyte # (Auto) 0.01 K/uL (0.00-0.02) 0.00 K/uL (0.00-0.02) Sodium Level 140 mmol/L (136-145) 136 mmol/L (136-145) Potassium Level 4.2 mmol/L (3.5-5.1) 3.8 mmol/L (3.5-5.1) Chloride Level 109 mmol/L (98-107) 101 mmol/L (98-107) Carbon Dioxide Level 28 mmol/L (21-32) 28 mmol/L (21-32) Anion Gap 3.0 mmol/L (3-11) 7.0 mmol/L (3-11) Blood Urea Nitrogen 17 mg/dl (7-18) 20 mg/dl (7-18) Creatinine 0.86 mg/dl (0.60-1.20) 1.00 mg/dl (0.60-1.20) Est Creatinine Clear Calc Drug Dose 76.1 ml/min 65.5 ml/min Estimated GFR () 84.5 70.4 Estimated GFR (Non- 72.9 60.8 BUN/Creatinine Ratio 19.3 (10-20) 19.8 (10-20) Random Glucose 110 mg/dl (70-99) 96 mg/dl (70-99) Calcium Level 9.0 mg/dl (8.5-10.1) 9.4 mg/dl (8.5-10.1) Total Bilirubin 0.3 mg/dl (0.2-1) 0.8 mg/dl (0.2-1) Aspartate Amino Transferase (AST) 21 U/L (15-37) 26 U/L (15-37) Alanine Aminotransferase (ALT) 37 U/L (12-78) 35 U/L (12-78) Alkaline Phosphatase 86 U/L (45-117) 98 U/L (45-117) Lactate Dehydrogenase 231 U/L (84-246) Total Protein 6.8 gm/dl (6.4-8.2) 7.3 gm/dl (6.4-8.2) Albumin 3.8 gm/dl (3.4-5.0) 4.1 gm/dl (3.4-5.0) Globulin 3.0 gm/dl (2.5-4.0) 3.2 gm/dl (2.5-4.0) Albumin/Globulin Ratio 1.3 (0.9-2) 1.3 (0.9-2) Magnesium Level 2.0 mg/dl (1.8-2.4) Additional Studies Patient: NABOR ALEJANDRE Address1: [facility] Rec: [id number] Address2: Acct ID: [id number] [facility] Zip: [place] [id number] Date: 1955 Sex: F Room/Bed: Ref Phy: Mee Jackson D.O. SC: C.CTS Att Phy: Ricardo Villaseñor D.O. Report #: [id number] Drea Phy: Mee Jackson D.O. Test: CX Admit Phy: Cost Clerk: SHAWN Interpreting Phy: Fernando Hussein D.O. Diagnosis: LUNG CA Ordering Phy: Ricardo Villaseñor D.O. Service Date: 01/03/17 Admit Date: 01/03/17 MNE: PWRSCRIBE CONF: DICTATED BY: Fernando Hussein D.O.]] CC: Ricardo Villaseñor D.O. Devan, Victoria J., D.O. Endcc: [~ rep ct add3]] CHEST CT WITH CONTRAST HISTORY: Lung cancer follow-up study TECHNIQUE: Multiaxial CT images of the chest were performed following the intravenous administration of contrast. A dose lowering technique was utilized adhering to the principles of ALARA. COMPARISON: PET/CT 09/06/2016, CT chest 08/11/2016. FINDINGS: No dominant thyroid nodule identified. There is been interval decrease in size of the previously noted right paratracheal lymph node, previously 1.7 x 1.1 cm, now measuring 1.1 x 0.5 cm. Previously noted focal soft tissue attenuation within the region of the AP window has also decreased in size, previously 2.0 x 1.2 cm, now 1.4 x 0.8 cm. Surgical suture material is now seen within this distribution. No new pathologic adenopathy identified. Heart is normal in size without pericardial effusion. Thoracic aorta is normal in course and caliber without dissection or aneurysm. Pulmonary arterial tree is not well opacified, however demonstrates no focal filling defects to suggest pulmonary embolus. No pneumothorax, pleural effusion or focal airspace consolidation. No suspicious nodules or pulmonary masses are identified. There is mild subsegmental bibasilar atelectasis. Post surgical changes of prior left upper lobectomy are again noted the central airways are patent. Multiple hepatic cysts are redemonstrated. Soft tissues are unremarkable. There is oral contrast the upper abdomen. No suspicious lytic or blastic bony lesions to suggest metastasis. There is mild convex right curvature of the midthoracic spine. IMPRESSION: 1. No acute intrathoracic abnormality identified. No evidence of metastatic disease or new adenopathy. 2. Postsurgical changes of prior left upper lobectomy. Interval decrease in size of the previously noted FDG avid right paratracheal lymph node. Previously noted intensely FDG avid soft tissue nodule posterior to the left main pulmonary artery has also markedly decreased in size suggesting response to therapy. 3. Multiple hepatic cysts redemonstrated. Electronically signed by: Francisco Javier Hussein M.D. 01/03/2017 4:16 PM Dictated Date/Time: 01/03/2017 4:08 PM Patient Name: NABOR ALEJANDRE Unit Number: [id number] Dictated: 01/03/171604 Transcribed: 01/03/171604 JA Printed Date/Time: [~ rep prt dt]/[~ rep prt tm] [~ rep ct labl] - [~ rep ct ivnm] [facility] [place] [address] Dictated: 01/03/171604 Transcribed: 01/03/171604 YOLA Printed Date/Time: [~ rep prt dt]/[~ rep prt tm] [~ rep ct labl] - [~ rep ct ivnm] Patient: NABOR ALEJANDRE Address1: [address] [place] [address] Rec: [id number] Address2: Acct ID: [id number] [facility] Zip: [id number] Date: 1955 Sex: F Room/Bed: Ref Phy: Mee Jackson D.O. SC: C.CTS Att Phy: Ricardo Villaseñor D.O. Report #: [id number] Drea Phy: Mee Jackson D.O. Test: APW Admit Phy: Cost Clerk: SHAWN Interpreting Phy: Brandon Ragland MD Diagnosis: LUNG CA Ordering Phy: Ricardo Villaseñor D.O. Service Date: 01/03/17 Admit Date: 01/03/17 MNE: PWRSCRIBE CONF: DICTATED BY: Brandon Ragland MD]] CC: Ricardo Villaseñor D.O. Devan, Victoria J., D.O. Endcc: [~ rep ct add3]] CT OF THE ABDOMEN AND PELVIS WITH CONTRAST CLINICAL HISTORY: Lung cancer. COMPARISON STUDY: PET/CT September 06, 2016 TECHNIQUE: Following IV administration of 92 mL of Optiray-320, axial images of the abdomen and pelvis were obtained from the lung bases to the proximal femurs. Images were reviewed in the axial, sagittal, and coronal planes. IV contrast was administered without complication. A dose lowering technique was utilized adhering to the principles of ALARA. Oral contrast was administered. CT DOSE: 673.06 mGy.cm FINDINGS: The chest will be reported separately. Numerous hepatic lesions are noted. The larger lesions measure water attenuation and are consistent with cysts. The smaller lesions are too small characterize but were present on prior exams. These are benign. The spleen, adrenal glands, kidneys and pancreas are normal with exception of numerous subcentimeter renal lesions which are too small to characterize. However, these are likely benign. The caliber and wall thickness of small and large bowel are normal. There is no abdominal or pelvic lymphadenopathy. There is no ascites. There is no evidence for a bowel obstruction. No biliary or pancreatic ductal dilatation is identified. The uterus is not visualized. The appendix is normal. No suspicious skeletal lesions are identified. IMPRESSION: No evidence of metastatic disease within the abdomen or pelvis. Electronically signed by: Brandon Ragland M.D. 01/03/2017 4:11 PM Dictated Date/Time: 01/03/2017 4:05 PM The status of this report is Signed. Draft = Not yet reviewed or approved by Radiologist. Signed = Reviewed and approved by Radiologist. <AttendingPhy>Ricardo Villaseñor D.O.</AttendingPhy> <FamilyPhy>Mee Jackson D.O.</FamilyPhy> <PrimaryPhy>Mee Jackson D.O.</PrimaryPhy> < UnitNumber>[id number]</UnitNumber> <VisitNumber>[id number]</VisitNumber> < PatientName>NABOR ALEJANDRE</PatientName> <DateOfBirth>1955</DateOfBirth> <Location>C.CTS</Location> <ServiceDate>01/03/17</ServiceDate> <MNE>ESINDI</MNE > <OrderingPhy>Ricardo Villaseñor P. D.O.</OrderingPhy> <OrderingPhyMNE>f rep ord dr tejada</OrderingPhyMNE> <DictatingPhyMNE>f rep dict dr tejada</DictatingPhyMNE> < CCListMNE>f rep ct mne</CCListMNE> <AdmittingPhyMNE>f pt admit dr tejada</ AdmittingPhyMNE> <AttendingPhyMNE>f pt attend dr tejada</AttendingPhyMNE> <ConsultingPhyMNE>f pt consult dr tejada</ConsultingPhyMNE> <FamilyPhyMNE>f pt fam dr tejada</FamilyPhyMNE> <OtherPhyMNE>f pt other dr tejada</OtherPhyMNE> < PrimaryPhyMNE>f pt prim care dr tejada</PrimaryPhyMNE> <ReferringPhyMNE>f pt referring dr tejada</ReferringPhyMNE> Assessment & Plan Plan: She was seen and examined by Dr. Cavanaugh. She'll be seen at [facility] at the end of January. She continues follow-up with Dr. Villaseñor. We discussed the foreign-body sensation she has of the throat. This is steadily improving. We discussed taking her medication with applesauce. She' ll increase hydration to help decrease thickness of phlegm. She did not require any pain medication currently. She has a Magic mouthwash if there is any difficulty with swallowing. We reviewed the results of the CT scans. She' ll keep her follow-up appointment with Dr. Villaseñor. We asked to return to our office in 6 months. She may call she has any questions or concerns in the interim. Assessment & Plan (Attending) ADDENDUM: I agree with note created by Bernarda Santos, PA-C. I reviewed the patient's chart and information with her. I have examined and evaluated the patient. I reviewed relevant clinical information and answered the patient's and /or family's questions. PORTRAIT CONSULTANT Total Time In Follow-Up I spent 20 minutes speaking to the patient and performing examination. I spent 15 minutes reviewing information completing this note. AK Total Time (Attending) In Follow-Up I spent 15 minutes examining and counseling the patient. PORTRAIT CONSULTANT Copy To Ricardo Villaseñor D.O.; Mee Jackson D.Amie; Jani Chambers MD
== END | disposition home or self-care (01) ==
LOC: C.ONC 13:29
PROVIDERS: ATTEND Physician Assistant Medical
DX: Z08 Encounter for follow-up examination after completed treatment for malignant neoplasm (principal); Z92.3 Personal history of irradiation; Z85.118 Personal history of other malignant neoplasm of bronchus and lung

== ENCOUNTER → 2017-02-22 | Outpatient (CLI) | payer BC ==
[~2017-02-22] MED LIST changes: -DEXA2TAB PO; +GADAVIST IV PRN
--- NOTE | 2017-02-22 17:03 | DIAGNOSTIC IMAGING REPORT ---
Brain MRI WITH AND WITHOUT CONTRAST HISTORY: Assess for metastatic disease. SMALL CELL LUNG CA TECHNIQUE: Multiplanar multisequence MRI of the brain was performed both before and after the intravenous administration of contrast. COMPARISON STUDY: Head CT 10/13/2016. Brain MRI 11/15/2013. FINDINGS: There is no mass, hematoma, midline shift, or acute infarct. The paranasal sinuses are clear. The mastoid air cells are clear. The ventricles and sulci demonstrate mild age-related involutional changes. Scattered foci of T2 hyperintensity seen within the periventricular and subcortical white matter are nonspecific but suggestive of mild microvascular ischemic changes. The major vascular flow voids at the skull base are well-maintained. No abnormal enhancement. IMPRESSION: No evidence for metastatic disease within the brain. Electronically signed by: Daren Licona M.D. 02/22/2017 5:02 PM Dictated Date/Time: 02/22/2017 4:55 PM
== END | disposition home or self-care (01) ==
LOC: C.MRI 16:04
PROVIDERS: ATTEND Internal Medicine Hematology & Oncology
DX: C34.12 Malignant neoplasm of upper lobe, left bronchus or lung (principal)

== ENCOUNTER → 2017-04-11 | Outpatient (CLI) | payer BC ==
[~2017-04-11] MED LIST changes: -DIPH1TAB; +DIPH1TAB87; -GADAVIST IV PRN
--- NOTE | 2017-04-11 15:25 | DIAGNOSTIC IMAGING REPORT ---
PET/CT SKULL-THIGH CLINICAL HISTORY: 62 years-old Female with NON SMALL CELL LUNG CANCER. Follow-up study in a patient with non-small cell lung carcinoma. Subsequent treatment strategy. Prior left upper lobectomy COMPARISON: CT chest, abdomen and pelvis 01/03/2017, brain MR 02/22/2017, PET CT 09/06/2016 TECHNIQUE: The patient was injected with 13.5 mCi of F-18 fluorodeoxyglucose (FDG) and an emission scan was performed from the skull vertex to the toes. Noncontrast CT was performed for attenuation correction and anatomic localization. The blood glucose level was 88 mg/dl. FINDINGS: HEAD AND NECK: Moderate generally symmetric tracer uptake is noted within the bilateral parotid glands, likely physiologic. CHEST: Postoperative changes from prior left upper lobectomy redemonstrated with SUV max of 3.0 involving subsegmental linear consolidative opacities within the left perihilar lung parenchyma nicely seen on image 70 of series 2 which is new from comparison study 01/03/2017. No discrete mass within this distribution. There is however mild pleural thickening posteromedially. No FDG avid masses are seen within either lung to suggest metastasis. No hypermetabolic adenopathy identified. There is mild right apical pleural parenchymal scarring with groundglass opacities noted within the medial aspect of the right lung apex which is new from prior exam. Minimal subsegmental bibasilar atelectasis. The previously noted right paratracheal lymph node measures 1.0 x 0.6 cm, nicely seen on image 69 series 2 without hypermetabolic activity. ABDOMEN AND PELVIS: There is increased radiotracer uptake involving the cecum with SUV max of 5.6 as seen on image 155 series 2 near the ileocecal valve. No stranding or discrete mass identified. Otherwise, there is a physiologic distribution of activity within the liver, spleen, adrenal glands, gastrointestinal and urinary tracts, with no hypermetabolic foci. MUSCULOSKELETAL SYSTEM AND EXTREMITIES: There is a physiologic distribution of activity within the bone marrow, with no hypermetabolic foci. Mildly increased radiotracer uptake about the right shoulder musculature is likely physiologic or inflammatory. ADDITIONAL CT FINDINGS: Mild dextroscoliosis of the midthoracic spine. Multiple hepatic cysts redemonstrated. Severe intervertebral disc space narrowing at L5-S1. Mild colonic diverticulosis without diverticulitis. IMPRESSION: 1. Postoperative changes of prior left upper lobectomy. Subsegmental consolidative opacities with pleural thickening of the left perihilar lung is new from comparison study 01/03/2017 with consolidation demonstrating mildly increased FDG uptake as above. These findings would favor postradiation fibrosis without discrete mass identified to suggest recurrent or residual disease. Attention at follow-up recommended. 2. No hypermetabolic adenopathy or definite evidence of metastatic disease. 3. Increased metabolic activity of the cecum near the ileocecal valve without correlating mass or focal wall thickening on the CT portion of the study may be physiologic. This could be correlated with colonoscopy. The above report was generated using voice recognition software. It may contain grammatical, syntax or spelling errors. Electronically signed by: Francisco Javier Hussein M.D. 04/11/2017 3:24 PM Dictated Date/Time: 04/11/2017 9:57 AM
== END | disposition home or self-care (01) ==
LOC: C.PET 07:41
PROVIDERS: ATTEND Internal Medicine Hematology & Oncology
DX: C34.12 Malignant neoplasm of upper lobe, left bronchus or lung (principal)

== ENCOUNTER → 2017-05-05 | Outpatient (CLI) | payer BC ==
[~2017-05-05] MED LIST changes: -FOLI1TAB7 PO; +FOLI1TAB8 PO; +OPTIRAY 320 IV PRN
--- NOTE | 2017-05-05 15:30 | DIAGNOSTIC IMAGING REPORT ---
CT SCAN OF THE CHEST, ABDOMEN, AND PELVIS WITH IV CONTRAST CLINICAL HISTORY: Lung cancer. COMPARISON STUDY: Chest CT scans dated 01/03/2017 and 10/09/2014. Abdominal CT dated 12/26/2016. PET/CT dated 04/11/2017. TECHNIQUE: Following the IV administration of 92 of Optiray 320, CT scan of the chest, abdomen, and pelvis was performed from the thoracic inlet to the proximal femora. Images are reviewed in the axial, sagittal, and coronal planes. IV contrast was administered without complication. Automated dose control exposure was utilized. A dose lowering technique was utilized adhering to the principles of ALARA. CT DOSE: 809.00 mGy.cm FINDINGS: CHEST: Thyroid: Atrophic. Thoracic aorta: The thoracic aorta is normal in caliber and demonstrates standard 3-vessel arch anatomy. No dissection is seen. Pulmonary vasculature: The pulmonary trunk is normal in caliber. There are no filling defects identified in the central pulmonary vessels to indicate pulmonary embolus. Note that this examination was not protocoled for evaluation of the pulmonary arteries. Heart: The heart is normal in size and configuration, and without pericardial effusion. Lungs and pleural spaces: There are postoperative changes from left upper lobe resection, with volume loss in the left lung and compensatory hyperinflation of the right lung. Apical scarring is observed. Consolidative change is again seen in the left posterior perihilar region seen on image #98. This is new from the 01/03/2017 examination and unchanged from the recent PET evaluation. No obvious mass lesion is identified in this region. There is a trace associated left pleural effusion. A 2 mm right apical nodule seen image #61 is unchanged from 2015 and of doubtful significance. No additional right-sided pulmonary lesion is identified. A calcific granuloma is noted at the right lung base. The trachea and central airways are patent. Mediastinum: There is no mediastinal lymphadenopathy. Batsheva: Clear. Axillae: There is no axillary lymphadenopathy. Bony thorax: The skeletal structures are osteopenic. Mild degenerative change and scoliosis are identified in the thoracic spine. No lytic or blastic lesions are identified. Arthritic change is noted in the shoulders. ABDOMEN AND PELVIS: Liver: The contrast-enhanced liver is normal in size, contour, and attenuation. There is no intrahepatic or ductal dilatation. The hepatic veins and portal veins are patent. There are numerous hepatic cysts measure up to 2.4 cm. Additional subcentimeter hypodensities also likely represent cysts but are too small for definitive characterization. Gallbladder: Unremarkable. Spleen: Normal in size and attenuation. Pancreas: Moderately atrophic and grossly unremarkable. Adrenal glands: Unremarkable. Kidneys: The contrast enhanced kidneys are atrophic and without hydronephrosis. The kidneys enhance symmetrically. Scattered subcentimeter cortical hypodensities likely represent cysts but are too small for definitive characterization. Abdominal vasculature: The abdominal aorta is normal in course and caliber. Stomach and bowel: There is a tiny hiatal hernia. The stomach and duodenum are otherwise normal in configuration. No bowel obstruction is seen. The appendix is well-visualized and normal. There are scattered colonic diverticula without CT evidence of acute diverticulitis. Peritoneum: There is no intraperitoneal free air or abdominal ascites. There is a small fat-containing umbilical hernia. Foci of induration and subcutaneous cutaneous gas within the ventral abdominal pannus are likely related to subcutaneous injections. Lymphadenopathy: None. Pelvic viscera: The bladder is normal as visualized. The uterus is surgically absent. No adnexal lesion is seen. Skeletal structures: The skeletal structures are osteopenic. No lytic or blastic lesions are seen. IMPRESSION: 1. Again seen are postoperative changes from left upper lobe resection. 2. There is unchanged fibrotic/consolidative change in the left posterior perihilar lung as compared to the 04/11/2017 PET examination. This is new from the 01/03/2017 study. This is pathologically indeterminant and could represent fibrosis/scarring or an infectious/inflammatory pneumonitis. There is trace associated left pleural effusion at this level. No obvious mass lesion is identified and recurrent neoplasm is considered less likely but not excluded. A 2-3 month follow-up chest CT is recommended for reassessment. Alternatively, bronchoscopy could be considered in follow-up. 3. No additional pulmonary lesion is identified. 4. There is no evidence of dyspnea metastatic disease in the chest, abdomen, or pelvis. 5. Additional findings as above. Electronically signed by: Raul Grider M.D. 05/05/2017 3:28 PM Dictated Date/Time: 05/05/2017 3:07 PM
== END | disposition home or self-care (01) ==
LOC: C.CTS 14:45
PROVIDERS: ATTEND Internal Medicine Hematology & Oncology
DX: C34.12 Malignant neoplasm of upper lobe, left bronchus or lung (principal)

== ENCOUNTER → 2017-05-25 | Day surgery (SDC) | payer OTHER ==
[~2017-05-25] VITALS: Ht 162.6 cm; Wt 79.1 kg
[~2017-05-25] MED LIST changes: +ALEN70TA3 PO; -DIPH1TAB87; +DIPH1TAB87 PO; +DSY/150 PO; +IMTIN5; +LEVA45AE INH; +LEVO125T72 PO; -LEVO150T9 PO; +MONT1TAB5 PO; +OMEP40CA41 PO; -OPTIRAY 320 IV PRN; -PRED10TA PO; -PRLSR20 PO; +PROPOFOL IV EMULSION 10 MG/ML 20 ML VIAL IV ONE; +RANI300T2 PO; -SNG10 PO; +SODIUM CHLORIDE 0.9% 500ML 500 ML IV ONE; -SUMA20SP; -TRAZ100T29 PO; -XPNIN INH; -ZNTT/150 PO
[2017-05-25 11:42] VITALS: Ht 162.6 cm; Wt 79.1 kg
--- NOTE | 2017-05-25 12:09 | Endo History and Physical ---
History & Physical Date of Service: May 25, 2017. Chief Complaint: ABNORMAL PET Referring Physician: DR MADERA History of Present Illness Abnormal PET Past Medical History Asthma, Anxiety, Reflux, Gynecological Problems, Cancer, Thyroid Disease, Depression Past Surgical History Hx Cardiac Surgery: No Hx Internal Defibrillator: No Hx Pacemaker: No Hx Abdominal Surgery: Yes (LISA BSO, TUBAL LIGATION AND REVERSAL) Hx of Implantable Prosthesis: No Hx Post-Op Nausea and Vomiting: No Hx Cancer Surgery: Yes (UPPER LEFT LOBECTOMY, BRONCHOSCOPIES WITH LUNG BIOPSIES ) Hx Thoracic Surgery: No Hx Orthopedic: Yes (LT/RT KNEE SURGERY) Hx Urinary Tract Surgery: No Family History None Social History Smoking Status: Never Smoker Hx Substance Use: No Hx Alcohol Use: No Allergies Coded Allergies: Cephalosporins (Verified Allergy, Intermediate, ITCHINESS, RASH, 05/19/17) Sulfa Antibiotics (Verified Allergy, Unknown, ITCHY/RASH TO SULFA DRUGS, ) Current Medications Reported Home Medications Medications Dose Route/Sig Max Daily Dose Days Date Category Dose Instructions Fosamax+D 70MG/5600 Iu (Alendronate Sodium/Vitamin D3) 70 Mg Tab 1 Tablet PO WK 05/19/17 Reported Imitrex Nasal [place] (Sumatriptan Succinate) 5 Mg Aers 1 [place] NA UD PRN 05/19/17 Reported Montelukast Sodium 10 Mg Tab 1 Tab PO HS 05/19/17 Reported Levalbuterol Tartrate Hfa (Levalbuterol Tartrate) 45 Mcg/Act Aer 2 Puff INH Q4H PRN 05/19/17 Reported Trazodone HCl 150 Mg Tab 1 Tab PO HS 05/19/17 Reported Prilosec (Omeprazole) 40 Mg Cap 40 Mg PO HS 05/19/17 Reported Zantac (Ranitidine HCl) 300 Mg Tab 300 Mg PO BID 05/19/17 Reported Synthroid (Levothyroxine Sodium) 125 Mcg Tab 125 Mcg PO QAM 05/19/17 Reported Magic Swizzle - Diphenhy/Alum/Mag/Sucralfa (Miscellaneous Medication) Susp 1 Tsp PO TID PRN 11/22/16 Reported 30ML DIPHENHYDRAMINE SLN 12.5/5ML 60ML MAALOX 4GM CARAFATE SWISH AND SPIT, takes as needed usually TID Folvite (Folic Acid) 1 Mg Tab 1 Tab PO DAILY 10/08/16 Reported Benadryl Allergy (Diphenhydramine Hcl) 25 Mg Tab 1 Tab PO UD PRN 09/27/16 Reported Gamunex-C (Immune Globulin (Human) Iv Or) 20 Gm/200 Ml Inj 4 Mg INJ WEEKLY 09/22/16 Reported TUESDAY Valtrex (Valacyclovir HCl) 500 Mg Tab 500 Mg PO QAM 09/22/16 Reported Klonopin (Clonazepam) 0.5 Mg Tab 0.5 Mg PO BID PRN 09/22/16 Reported Lioresal (Baclofen) 10 Mg Tab 10 Mg PO BID PRN 01/29/16 Reported Duoneb (Ipratropium-Albuterol) 3 Ml Nebu 1 Treatment INH QID PRN 09/03/15 Reported Advair Diskus 500/50 60 Dose (Fluticasone Prop/Salmeterol) 1 Ea Aerp 1 Puffs INH BID 07/04/15 Reported [place] 5MG/325MG (Acetaminophen/Hydrocodone Bitart) Tab 1 Tablet PO Q6H PRN 06/11/15 Reported PRN PAIN Neurontin (Gabapentin) 300 Mg Cap 600 Mg PO BID 03/28/15 Reported Imitrex Statdose (Sumatriptan Succinate) 6 Mg/0.5 Ml Inj 0.5 Ml INJ UD PRN 05/26/09 Reported Vital Signs Weight (Kilograms): 79.09 Height (Feet): 5 Height (Inches): 4 Date Time Temp Pulse Resp B/P (MAP) Pulse Ox O2 Delivery O2 Flow Rate FiO2 05/25/17 11:41 36.6 79 18 114/61 (78) 98 Room Air Physical Exam General Appearance: no apparent distress Respiratory/Chest: Respiratory effort: no dyspnea Cardiovascular: Heart Auscultation: RRR Abdomen: Inspection & Palpation: soft Assessment and Plan Abnormal PET - cscopy
--- NOTE | 2017-05-25 13:08 | Discharge Instructions ---
Endoscopy Patient Instructions Date / Procedure(s) Performed May 25, 2017. Colonoscopy Allergy Information Coded Allergies: Cephalosporins (Verified Allergy, Intermediate, ITCHINESS, RASH, 05/19/17) Sulfa Antibiotics (Verified Allergy, Unknown, ITCHY/RASH TO SULFA DRUGS, ) Discharge Date / Findings May 25, 2017. No abnormality of cecum or ascending colon. Diminutive polyp. Provider Instructions Activity Restrictions - No exercising or heavy lifting for 24 hours. - Do not drink alcohol the day of the procedure. - Do not drive a car or operate machinery until the day after the procedure. - Do not make any important decisions or sign important papers in 24 hours after the procedure. Following Day: - Return to full activity which may include returning to work/school. Diet Start your diet with liquids and light foods (jello, soup, juice, toast). Then eat your usual diet if not nauseated. Treatment For Common After Affects For mild abdominal pain, bloating, or excessive gas: - Rest - Eat lightly - Lie on right side Follow-Up Information Follow-up with DR MADERA as scheduled Anesthesia Information What You Should Know You have had a procedure that required some medicine to reduce anxiety and discomfort. This treatment is called moderate sedation. After receiving the treatment, you may be sleepy, but you will be able to breathe on your own. The effects of the treatment may last for several hours. Follow these instructions along with Activity/Diet recommendations noted above: * Do NOT do anything where dizziness or clumsiness would be dangerous. * Rest quietly at home today, then you can be up and about tomorrow. * Have a responsible person stay with you the rest of today. * You may have had an I.V. today. If so, you may take the dressing off later today. Recommendations Call your doctor if: * Trouble breathing * Continuous vomiting for more than 24 hours * Temperature above 101 degrees * Severe abdominal pain or bloating * Pain not relieved by pain medicine ordered * There is increased drainage or redness from any incision * A large amount of rectal bleeding greater than 2-3 tablespoons. (If you had a polyp/s removed or have hemorrhoids, a small amount of blood - from the rectum is to be expected.) * You have any unanswered questions or concerns. IN THE EVENT OF A SERIOUS EMERGENCY, GO TO THE NEAREST EMERGENCY ROOM Your discharge instructions were prepared by provider Aubree Magana. Patient Instructions Signature Page Angle Cedeno Patient (or Guardian) Signature/Date: I have read and understand the instructions given to me by my caregivers. Caregiver/RN/Doctor Signature/Date: The above-named patient and/or guardian has received patient instructions on this date. + Original Patient Signature Page (only) stays with chart. Please make copy for patient.
--- NOTE | 2017-05-25 13:08 | GI REPORT ---
Procedure Date: 05/25/2017 12:01 PM Procedure: Colonoscopy Indications: Abnormal PET scan of the GI tract Medicines: See the Anesthesia note for documentation of the administered medications Complications: No immediate complications. Estimated Blood Loss: Estimated blood loss: none. Procedure: Pre-Anesthesia Assessment: - ASA Grade Assessment: III - A patient with severe systemic disease. After I obtained informed consent, the scope was passed under direct vision. Throughout the procedure, the patient's blood pressure, pulse, and oxygen saturations were monitored continuously. The scope was introduced through the anus and advanced to the terminal ileum. The colonoscopy was somewhat difficult due to restricted mobility of the colon. The patient tolerated the procedure well. The quality of the bowel preparation was adequate. Findings: The perianal and digital rectal examinations were normal. Multiple small and large-mouthed diverticula were found in the sigmoid colon and descending colon. There was a 3 mm polyp in the ascending colon removed with a cold snare. No abnormality was seen in the ascending colon. The exam was otherwise without abnormality. The ileum was normal. Impression: - Diverticulosis in the sigmoid colon and in the descending colon. Diminutive polyp. - The examination was otherwise normal. - No specimens collected. - Of note, exam does not rule out extrinsic lesion involving the colon. Recommendation: - Discharge patient to home. Aubree Lazaro M.D. Aubree Lazaro MD 05/25/2017 1:07:38 PM This report has been signed electronically. Note Initiated On: 05/25/2017 12:01 PM I attest to the content of the Intraoperative Record and orders documented therein, exceptions below
[2017-05-25 13:36] VITALS: BP 103/64; PULSE 78; O2SAT 99
--- NOTE | 2017-05-25 14:16 | Anesthesiology Progress Note ---
Anesthesia Post Op Note Date & Time May 25, 2017 at 14:16 Vital Signs Pain Intensity: 5 Vital Signs Past 12 Hours Date Time Temp Pulse Resp B/P (MAP) Pulse Ox O2 Delivery O2 Flow Rate FiO2 05/25/17 13:36 78 18 103/64 (77) 99 Room Air 05/25/17 13:21 0 16 105/73 (84) 99 Room Air 05/25/17 13:14 79 16 93/40 (57) 99 Room Air 05/25/17 11:41 36.6 79 18 114/61 (78) 98 Room Air Notes Mental Status: alert / awake / arousable, participated in evaluation Pt Amnestic to Procedure: Yes Nausea / Vomiting: adequately controlled Pain: adequately controlled Airway Patency, RR, SpO2: stable & adequate BP & HR: stable & adequate Hydration State: stable & adequate Anesthetic Complications: no major complications apparent
== END | disposition home or self-care (01) ==
LOC: C.GI 10:35
PROVIDERS: ATTEND Internal Medicine Gastroenterology
DX: D12.2 Benign neoplasm of ascending colon (principal); K57.30 Diverticulosis of large intestine without perforation or abscess without bleeding; K21.9 Gastro-esophageal reflux disease without esophagitis; G47.33 Obstructive sleep apnea (adult) (pediatric); J45.909 Unspecified asthma, uncomplicated; E07.9 Disorder of thyroid, unspecified; F32.9 Major depressive disorder, single episode, unspecified; F41.9 Anxiety disorder, unspecified; Z86.73 Personal history of transient ischemic attack (TIA), and cerebral infarction without residual deficits; Z85.118 Personal history of other malignant neoplasm of bronchus and lung; Z79.899 Other long term (current) drug therapy

== ENCOUNTER → 2017-06-21 | Outpatient (CLI) | payer OTHER ==
[~2017-06-21] MED LIST changes: -PROPOFOL IV EMULSION 10 MG/ML 20 ML VIAL IV ONE; -SODIUM CHLORIDE 0.9% 500ML 500 ML IV ONE
--- NOTE | 2017-06-21 14:31 | DIAGNOSTIC IMAGING REPORT ---
CHEST 2 VIEWS ROUTINE HISTORY: 62 years-old Female C34.12 acute shortness of breath COMPARISON: Chest radiograph 6 12/31/2016, chest CT 05/05/2017 TECHNIQUE: PA and lateral views of the chest FINDINGS: Cardiomediastinal and hilar silhouettes are within normal limits. Surgical clips clips project over the left hilum which is elevated with mild persistent right perihilar pleural-parenchymal scarring from prior left upper lobectomy. No pneumothorax, large pleural effusion or new focal airspace consolidation. The right lung appears clear. Bones of the chest appear grossly intact. IMPRESSION: 1. No acute process of the chest. 2. Stable postoperative changes from prior left upper lobectomy. The above report was generated using voice recognition software. It may contain grammatical, syntax or spelling errors. Electronically signed by: Francisco Javier Hussein M.D. 06/21/2017 2:29 PM Dictated Date/Time: 06/21/2017 2:24 PM
== END | disposition home or self-care (01) ==
LOC: C.RAD 14:06
PROVIDERS: ATTEND Internal Medicine Hematology & Oncology
DX: C34.12 Malignant neoplasm of upper lobe, left bronchus or lung (principal); Z90.2 Acquired absence of lung [part of]

== ENCOUNTER → 2017-07-07 | Outpatient (CLI) | payer OTHER ==
[~2017-07-07] MED LIST changes: +PRED20TA PO; +[UNRECOGNIZED DRUG - CODE]; +[UNRECOGNIZED DRUG - CODE] IV
[2017-07-07 13:29] VITALS: BP 104/68; PULSE 76; TEMP 36.9; O2SAT 98
--- NOTE | 2017-07-07 15:47 | Radiation Oncology Follow-Up ---
Radiation Oncology Follow-Up Date of Visit Jul 07, 2017. 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 Alejandre initially diagnosed with lung cancer in 2013. The patient initially presented with a cough and bronchitis and did have a chest x-ray completed on which revealed a 2.8 cm nodular density in the superior aspect of the aortic knob that could represent a pulmonary mass. The patient was seen and evaluated by Dr. Torres from pulmonary medicine. The patient did have a CT of the thorax completed on 10/25/2016 which revealed a 3.3 cm left upper lobe mass abutting the aortic arch that was highly suggestive of primary bronchogenic carcinoma with no evidence of mediastinal adenopathy. The patient underwent a bronchoscopy by Dr. Kunal Torres on 11/01/2013 which confirmed non-small cell lung carcinoma by brushings. The patient underwent a PET/CT scan on 11/12/2013 which revealed markedly FDG uptake within the 3.8 cm left upper lobe mass consistent with non-small cell lung cancer; the mass abuts the mediastinum with loss of fat plane between the mass in the aortic arch. The scan also showed moderate left suprahilar FDG uptake suspicious for thuy spread of disease. The patient underwent a left upper lobectomy and lymph node resection on 2013. Pathology revealed adenosquamous carcinoma that was moderately differentiated and measured 3.5 cm in the greatest dimension in the left upper lobe; the tumor involved the visceral pleura and all the margins were negative however there was evidence for lymphovascular space invasion. Lymph nodes were resected from levels 8, 9, 5 and 10; metastatic carcinoma was identified in the left level 5 and peribronchial lymph nodes on lobectomy. The largest thuy metastasis was 2.6 cm with no evidence of extranodal extension. The patient was treated with chemotherapy underneath the supervision of Dr. Ricardo Villaseñor and received 4 cycles of carboplatin and Taxol chemotherapy which completed in March 2014. The patient has been underneath close surveillance with imaging studies with no significant change in scans until May 2016. The patient underwent a CT of the thorax on 05/18/2016 which revealed 2 new groundglass nodules within the left lower lobe measuring 3 mm. The patient had a short interval follow-up CT of the chest on 08/11/2016 which revealed mild increase in the size of a minimally enlarged precarinal lymph node and stable soft tissue posterior to the left main pulmonary artery; the previously identified left lower lobe 3 mm groundglass pulmonary nodules are no longer visualized. The patient underwent a PET/CT scan on 09/06/2016 revealed an intensely FDG avid 1 cm right paratracheal lymph node with maximum SUV of 9.2, intensely FDG avid soft tissue nodule located posterior in the left main pulmonary artery measuring 1 cm with maximum SUV of 12.2 and interval development of left upper lobe/left lower lobe air space opacities that are likely inflammatory. The patient was referred to Dr. Jani Chambers who performed a endobronchial ultrasound and bronchoscopy on 09/27/2016. At the time of the procedure, Dr. Chambers did biopsy a R2 lymph node that was positive for metastatic carcinoma consistent with metastatic non-small cell lung carcinoma. Additionally, he also biopsied an R4 lymph node which was also positive for metastatic carcinoma consistent with metastatic non-small cell lung carcinoma. Dr. Chambers did also biopsy a 11L lymph node which was negative for metastatic carcinoma. The patient was seen by Dr. Ricardo Villaseñor for medical oncology who is recommended consideration of definitive chemotherapy and radiation therapy. We are now seeing the patient in consultation discuss the role of radiation therapy. The patient states that she is doing okay overall. She continues to have some exertional dyspnea. She denies any hemoptysis, fevers, chills. She does complain of some night sweats. She notes that she had on to 30 pound weight loss over the last 6-7 months. She underwent combined radiation and chemotherapy. Radiation was completed . She received 6000 cGy. Interim History She is continues to have mild shortness of breath. She also has a feeling of drainage in the throat which causes her to frequently clear her throat. This is been ongoing for a long period of time. She has been followed closely by Dr. Villaseñor with recheck studies. She had a chest x-ray June 21, 2017. There were no acute processes noted in the chest. In April she had CAT scans which showed unchanged fibrotic/consolidative areas in the left posterior perihilar lung. This was compared to the PET scan of April 11, 2017. The change was new since December 2016. This is pathologically indeterminate and she could represent fibrosis/scarring or an infectious/inflammatory pneumonitis. There is trace associated left pleural effusion. Recommendation was for continued follow-up CAT scanning. She has now been started on maintenance immunotherapy with Duvalumab. With the initial treatment she did have diarrhea as well as significant arthralgias. She was started on prednisone 2 days ago and this has greatly helped her side effects. Allergies Coded Allergies: Cephalosporins (Verified Allergy, Intermediate, ITCHINESS, RASH, 05/19/17) Sulfa Antibiotics (Verified Allergy, Unknown, ITCHY/RASH TO SULFA DRUGS, ) Home Medications Scheduled Alendronate/Cholecalciferol (Fosamax+D 70MG/5600 Iu), 1 TABLET PO WK Durvalumab (Imfinzi), IV q2 weeks Fluticasone Prop/Salmeterol (Advair Diskus 500/50 60 Dose), 1 PUFFS INH BID Folic Acid (Folvite), 1 TAB PO DAILY Gabapentin (Neurontin), 600 MG PO BID Immune Globulin (Human) Iv Or (Gamunex-C), 4 MG INJ WEEKLY Levothyroxine Sodium (Synthroid), 125 MCG PO QAM Montelukast Sodium (Montelukast Sodium), 1 TAB PO HS Omeprazole (Prilosec), 40 MG PO HS Prednisone (Prednisone), 3 TABS PO DAILY Ranitidine (Zantac), 300 MG PO BID Trazodone HCl (Trazodone HCl), 1 TAB PO HS Valacyclovir (Valtrex), 500 MG PO QAM Scheduled PRN Baclofen (Lioresal), 10 MG PO BID PRN for SPASMS Clonazepam (Klonopin), 0.5 MG PO BID PRN for Anxiety Diphenhy/Alum/Mag/Sucralfa (Magic Swizzle - Diphenhy/Alum/Mag/Sucralfa), 1 TSP PO TID PRN for ESOHPAGITIS AND THRUSH Diphenhydramine Hcl (Benadryl Allergy), 1 TAB PO UD PRN for Allergic Reaction Hydrocodone/Acetaminophen 5MG/325MG ([place] 5MG/325MG), 1 TABLET PO Q6H PRN for Pain Ipratropium-Albuterol (Duoneb), 1 TREATMENT INH QID PRN for SOB/Wheezing Levalbuterol Tartrate (Levalbuterol Tartrate Hfa), 2 PUFF INH Q4H PRN for SOB/ Wheezing Sumatriptan Succinate (Imitrex Statdose), 0.5 ML INJ UD PRN for Migraine Sumatriptan Succinate (Imitrex Nasal [place]), 1 SPRAY NA UD PRN for Migraine Miscellaneous Medications Durvalumab (Imfinzi) Review of Systems Gastrointestinal: Symptoms: Diarrhea GI Comments: diarrhea intermet started on prednisone 2days ago which has helped Oral: Other Oral Symptoms: occ diff swallowing Respiratory: Symptoms: SOB With Exertion, Productive Cough Sputum Character: yellow in the AM usually Urinary: Symptoms: WNL Skin: Symptoms: No Problems Physical Exam Vital Signs Date Time Temp Pulse Resp B/P (MAP) Pulse Ox O2 Delivery O2 Flow Rate FiO2 07/07/17 13:29 36.9 76 16 104/68 98 Fatigue: None General Appearance: no apparent distress Eyes: normal inspection, PERRL ENT: normal ENT inspection, hearing grossly normal Neck: no adenopathy, thyroid normal Respiratory/Chest: lungs clear, no respiratory distress, no accessory muscle use Cardiovascular: regular rate, rhythm, no gallop, no murmur Extremities: no pedal edema Neurologic/Psychiatric: no motor/sensory deficits, alert, normal mood/affect Skin: warm/dry, + pallor Pain Management Patient Reports Pain: Yes Pain Location: back pain between should blades Patient Preferred Pain Scale: 0 - 10 Initial Pain Intensity: 7.0 Pain Management Plan Pain is due to arthralgias. She was started on prednisone 2 days ago and this is helping the pain. The prednisone was started through the medical oncologist office. Laboratory Laboratory Results: not applicable Pathology Pathology Results: not applicable Imaging Imaging Studies: were reviewed, and pertinent findings noted below Imaging Comments Patient: NABOR ALEJANDRE Address1: [facility] Rec: [id number] Address2: Acct ID: [id number] [facility] Zip: [place] [id number] Date: 1955 Sex: F Room/Bed: Ref Phy: Mee Jackson D.O. SC: C.CTS Att Phy: Ricardo Villaseñor D.O. Report #: [id number] Drea Phy: Mee Jackson D.O. Test: CX Admit Phy: Director Product Management: MONIQUE Interpreting Phy: Raul Grider M.D. Diagnosis: LUNG CANCER Ordering Phy: Ricardo Villaseñor D.O. Service Date: 05/05/17 Admit Date: 05/05/17 MNE: [id number] CONF: DICTATED BY: Raul Grider M.D.]] CC: Ricardo Villaseñor D.O. Devan, Victoria J., D.O. Endcc: [~ rep ct add3]] CT SCAN OF THE CHEST, ABDOMEN, AND PELVIS WITH IV CONTRAST CLINICAL HISTORY: Lung cancer. COMPARISON STUDY: Chest CT scans dated 01/03/2017 and 10/09/2014. Abdominal CT dated 12/26/2016. PET/CT dated 04/11/2017. TECHNIQUE: Following the IV administration of 92 of Optiray 320, CT scan of the chest, abdomen, and pelvis was performed from the thoracic inlet to the proximal femora. Images are reviewed in the axial, sagittal, and coronal planes. IV contrast was administered without complication. Automated dose control exposure was utilized. A dose lowering technique was utilized adhering to the principles of ALARA. CT DOSE: 809.00 mGy.cm FINDINGS: CHEST: Thyroid: Atrophic. Thoracic aorta: The thoracic aorta is normal in caliber and demonstrates standard 3-vessel arch anatomy. No dissection is seen. Pulmonary vasculature: The pulmonary trunk is normal in caliber. There are no filling defects identified in the central pulmonary vessels to indicate pulmonary embolus. Note that this examination was not protocoled for evaluation of the pulmonary arteries. Heart: The heart is normal in size and configuration, and without pericardial effusion. Lungs and pleural spaces: There are postoperative changes from left upper lobe resection, with volume loss in the left lung and compensatory hyperinflation of the right lung. Apical scarring is observed. Consolidative change is again seen in the left posterior perihilar region seen on image #98. This is new from the 01/03/2017 examination and unchanged from the recent PET evaluation. No obvious mass lesion is identified in this region. There is a trace associated left pleural effusion. A 2 mm right apical nodule seen image #61 is unchanged from 2015 and of doubtful significance. No additional right-sided pulmonary lesion is identified. A calcific granuloma is noted at the right lung base. The trachea and central airways are patent. Mediastinum: There is no mediastinal lymphadenopathy. Batsheva: Clear. Axillae: There is no axillary lymphadenopathy. Bony thorax: The skeletal structures are osteopenic. Mild degenerative change and scoliosis are identified in the thoracic spine. No lytic or blastic lesions are identified. Arthritic change is noted in the shoulders. ABDOMEN AND PELVIS: Liver: The contrast-enhanced liver is normal in size, contour, and attenuation. There is no intrahepatic or ductal dilatation. The hepatic veins and portal veins are patent. There are numerous hepatic cysts measure up to 2.4 cm. Additional subcentimeter hypodensities also likely represent cysts but are too small for definitive characterization. Gallbladder: Unremarkable. Spleen: Normal in size and attenuation. Pancreas: Moderately atrophic and grossly unremarkable. Adrenal glands: Unremarkable. Kidneys: The contrast enhanced kidneys are atrophic and without hydronephrosis. The kidneys enhance symmetrically. Scattered subcentimeter cortical hypodensities likely represent cysts but are too small for definitive characterization. Abdominal vasculature: The abdominal aorta is normal in course and caliber. Stomach and bowel: There is a tiny hiatal hernia. The stomach and duodenum are otherwise normal in configuration. No bowel obstruction is seen. The appendix is well-visualized and normal. There are scattered colonic diverticula without CT evidence of acute diverticulitis. Peritoneum: There is no intraperitoneal free air or abdominal ascites. There is a small fat-containing umbilical hernia. Foci of induration and subcutaneous cutaneous gas within the ventral abdominal pannus are likely related to subcutaneous injections. Lymphadenopathy: None. Pelvic viscera: The bladder is normal as visualized. The uterus is surgically absent. No adnexal lesion is seen. Skeletal structures: The skeletal structures are osteopenic. No lytic or blastic lesions are seen. IMPRESSION: 1. Again seen are postoperative changes from left upper lobe resection. 2. There is unchanged fibrotic/consolidative change in the left posterior perihilar lung as compared to the 04/11/2017 PET examination. This is new from the 01/03/2017 study. This is pathologically indeterminant and could represent fibrosis/scarring or an infectious/inflammatory pneumonitis. There is trace associated left pleural effusion at this level. No obvious mass lesion is identified and recurrent neoplasm is considered less likely but not excluded. A 2-3 month follow-up chest CT is recommended for reassessment. Alternatively, bronchoscopy could be considered in follow-up. 3. No additional pulmonary lesion is identified. 4. There is no evidence of dyspnea metastatic disease in the chest, abdomen, or pelvis. 5. Additional findings as above. Electronically signed by: Raul Grider M.D. 05/05/2017 3:28 PM Dictated Date/Time: 05/05/2017 3:07 PM Assessment & Plan Plan: She was also seen and examined by Dr. Cavanaugh. She continues on immunotherapy with Duvalumab. She is receiving this every 3 weeks. We discussed the clearing of the throat. This could be related to postnasal drainage. She does take Benadryl. We discussed possibly using Zyrtec. Also for congestion she can use Mucinex. She is due for a recheck CAT scan July. These results will be reviewed when they are available. We asked her to return to our office in 1 year. Assessment & Plan (Attending) I agree with note created by Bernarda Santos PA-C. I reviewed the patient's chart and information with her. I have examined and evaluated the patient. I reviewed relevant clinical information and answered the patient's and/or family' s questions. SKETCH LINER Total Time In Follow-Up I spent 20 minutes speaking to the patient in performing the examination. I spent 15 minutes reviewing information and completing this note. AK Total Time (Attending) In Follow-Up I spent 15 minutes examining and counseling the patient. SKETCH LINER Copy To Ricardo Villaseñor D.O.; Mee Jackson D.O.; Jani Chambers MD Problem Qualifiers (1) Lung cancer: Laterality: left Lung location: upper lobe of lung Qualified Codes: C34.12 - Malignant neoplasm of upper lobe, left bronchus or lung
== END | disposition home or self-care (01) ==
LOC: C.ONC 13:23
PROVIDERS: ATTEND Physician Assistant Medical
DX: Z08 Encounter for follow-up examination after completed treatment for malignant neoplasm (principal); Z92.3 Personal history of irradiation; Z85.118 Personal history of other malignant neoplasm of bronchus and lung

== ENCOUNTER → 2017-07-19 | Outpatient (CLI) | payer OTHER ==
[~2017-07-19] MED LIST changes: +OPTIRAY 320 IV PRN
--- NOTE | 2017-07-19 16:30 | DIAGNOSTIC IMAGING REPORT ---
CT OF THE ABDOMEN AND PELVIS WITH CONTRAST CLINICAL HISTORY: Lung cancer. COMPARISON STUDY: CT of the abdomen and pelvis April 27, 2017. TECHNIQUE: Following IV administration of 116 mL of Optiray-320, axial images of the abdomen and pelvis were obtained from the lung bases to the proximal femurs. Images were reviewed in the axial, sagittal, and coronal planes. IV contrast was administered without complication. A dose lowering technique was utilized adhering to the principles of ALARA. Oral contrast was administered. FINDINGS: The chest CT portion of the study will be reported separately. Numerous water attenuation hepatic lesions reflect cysts. There are multiple subcentimeter hepatic lesions which are too small character as but are unchanged. These likely reflect cysts as well. There are numerous subcentimeter hypodense renal lesions which are too small to characterize but likely reflect cysts. The spleen, adrenal glands and pancreas are normal. There is no abdominal or pelvic lymphadenopathy. Caliber and wall thickness of small and large bowel are normal. The appendix is normal. There is colonic diverticulosis without evidence for acute diverticulitis. There is no ascites. There are no suspicious osseous lesions. IMPRESSION: No evidence of metastatic disease within the abdomen or pelvis. Electronically signed by: Brandon Ragland M.D. 07/19/2017 4:29 PM Dictated Date/Time: 07/19/2017 4:21 PM
--- NOTE | 2017-07-19 16:35 | DIAGNOSTIC IMAGING REPORT ---
CHEST CT WITH CONTRAST CT DOSE: 696.05 mGy.cm HISTORY: Lung cancer. Follow-up. TECHNIQUE: Multiaxial CT images of the chest were performed following the intravenous administration of contrast. A dose lowering technique was utilized adhering to the principles of ALARA. COMPARISON: Chest CT 05/05/2017. FINDINGS: There is again noted left upper lobectomy. Left retrohilar consolidation is slightly improved. This suggests resolving radiation pneumonitis. Trace loculated left pleural effusion remains unchanged. No change in a few scattered linear densities within the left lung consistent with scarring. A few linear scarlike densities within the right lung apex persists. Stable 2 mm right apical nodule on image 60. No new or suspicious pulmonary nodules identified. No suspicious lytic or blastic osseous lesions. No mediastinal or hilar lymphadenopathy. The heart is normal in size. Normal caliber thoracic aorta. IMPRESSION: 1. No evidence for recurrent or metastatic disease within the chest. 2. Slight improvement in the left retrohilar opacity suggestive of resolving post radiation change. Electronically signed by: Daren Licona M.D. 07/19/2017 4:34 PM Dictated Date/Time: 07/19/2017 4:22 PM
== END | disposition home or self-care (01) ==
LOC: C.CTS 15:29
PROVIDERS: ATTEND Internal Medicine Hematology & Oncology
DX: C34.12 Malignant neoplasm of upper lobe, left bronchus or lung (principal)

== ENCOUNTER → 2017-07-24 | Outpatient (CLI) | payer OTHER ==
[~2017-07-24] MED LIST changes: -OPTIRAY 320 IV PRN
== END | disposition home or self-care (01) ==
LOC: C.LAB 10:56
PROVIDERS: ATTEND Pediatrics Pediatric Allergy/Immunology
DX: D83.9 Common variable immunodeficiency, unspecified (principal)

== ENCOUNTER 2017-08-17 19:10 | Emergency (ER) | payer OTHER ==
[~2017-08-17] VITALS: Ht 163.8 cm; Wt 84.1 kg
[2017-08-17 19:25] VITALS: TEMP 36.8; Ht 163.8 cm; Wt 84.1 kg
--- NOTE | 2017-08-17 20:26 | DIAGNOSTIC IMAGING REPORT ---
CT OF THE HEAD WITHOUT CONTRAST CLINICAL HISTORY: CHI/neck pain. History of lung cancer. COMPARISON STUDY: Head CT October 23, 2016 and MRI of the brain February 22, 2017. TECHNIQUE: Helical axial images of the head were obtained without IV contrast. Automated exposure control was utilized for the study. A dose lowering technique was utilized adhering to the principles of ALARA. FINDINGS: No acute intracranial hemorrhage, midline shift or mass effect is present. Ventricular system is normal. Basilar cisterns are patent. There are no extra-axial collections. Booker-white differentiation is maintained. There is no calvarial fracture. IMPRESSION: 1. No acute intracranial findings. 2. No calvarial fracture. Electronically signed by: Brandon Ragland M.D. 08/17/2017 8:25 PM Dictated Date/Time: 08/17/2017 8:22 PM
--- NOTE | 2017-08-17 20:36 | DIAGNOSTIC IMAGING REPORT ---
CT OF THE CERVICAL SPINE WITHOUT CONTRAST CLINICAL HISTORY: CHI/neck pain COMPARISON STUDY: No previous studies for comparison. TECHNIQUE: Helical axial images of the cervical spine were obtained without IV contrast. Sagittal and coronal reconstructions were viewed. A dose lowering technique was utilized adhering to the principles of ALARA. FINDINGS: There is reversal of the normal cervical lordosis. The craniocervical junction is intact. There is no acute cervical spine fracture or subluxation. There is moderate multilevel facet arthrosis and mild to moderate multilevel degenerative disc disease. There is no prevertebral edema. Postoperative findings within the left hemithorax are partially imaged on this exam. IMPRESSION: No acute cervical spine fracture or subluxation. Electronically signed by: Brandon Ragland M.D. 08/17/2017 8:34 PM Dictated Date/Time: 08/17/2017 8:32 PM
[2017-08-17 21:01] VITALS: BP 128/72; PULSE 78; O2SAT 98
--- NOTE | 2017-08-17 21:01 | EMERGENCY ROOM VISIT NOTE ---
History First contact with patient: 19:30 Chief Complaint: HEAD INJURY (MINOR) Stated Complaint: HEAD INJURY DUE TO FALL, OLIVAS History of Present Illness The patient is a 62 year old female who presents to the Emergency Room with complaints of injuries after she tripped while walking down bleachers steps and fell, striking her head on pavement. The patient denies any loss of consciousness. She complains of a headache and mild neck discomfort. Patient reports a prior history of lung cancer with metastases. She currently describes a global headache with mild nausea. She denies any tinnitus, patient epistaxis or blurred vision. The patient denies any prior history of concussion injuries, and rates her discomfort an 8 out of 10. The patient does report a prior history of migraines. She takes Imitrex for acute migraines, and hydrocodone only as needed for worse pain. Review of Systems 10 system review was performed and was negative except for pertinent positives and negatives as indicated in history of present illness Past Medical/Surgical History Medical Problems: (1) Asthma (2) Hypothyroidism (3) Hypoxia (4) Lung cancer (5) Migraine (6) PUD (peptic ulcer disease) Surgical Problems: (1) H/O colonoscopy (2) H/O tubal ligation (3) H/O vaginal hysterectomy (4) History of esophagogastroduodenoscopy Family History Cancer Diabetes mellitus Heart disease Hypertension Social History Smoking Status: Never Smoker Alcohol Use: none Drug Use: none Marital Status: single Housing Status: lives with family Occupation Status: employed Current/Historical Medications Scheduled Alendronate/Cholecalciferol (Fosamax+D 70MG/5600 Iu), 1 TABLET PO WK Durvalumab (Imfinzi), IV q2 weeks Fluticasone Prop/Salmeterol (Advair Diskus 500/50 60 Dose), 1 PUFFS INH BID Folic Acid (Folvite), 1 TAB PO DAILY Gabapentin (Neurontin), 600 MG PO BID Immune Globulin (Human) Iv Or (Gamunex-C), 4 MG INJ WEEKLY Levothyroxine Sodium (Synthroid), 125 MCG PO QAM Montelukast Sodium (Montelukast Sodium), 1 TAB PO HS Omeprazole (Prilosec), 40 MG PO HS Prednisone (Prednisone), 3 TABS PO DAILY Ranitidine (Zantac), 300 MG PO BID Trazodone HCl (Trazodone HCl), 1 TAB PO HS Valacyclovir (Valtrex), 500 MG PO QAM Scheduled PRN Baclofen (Lioresal), 10 MG PO BID PRN for SPASMS Clonazepam (Klonopin), 0.5 MG PO BID PRN for Anxiety Diphenhy/Alum/Mag/Sucralfa (Magic Swizzle - Diphenhy/Alum/Mag/Sucralfa), 1 TSP PO TID PRN for ESOHPAGITIS AND THRUSH Diphenhydramine Hcl (Benadryl Allergy), 1 TAB PO UD PRN for Allergic Reaction Hydrocodone/Acetaminophen 5MG/325MG ([place] 5MG/325MG), 1 TABLET PO Q6H PRN for Pain Ipratropium-Albuterol (Duoneb), 1 TREATMENT INH QID PRN for SOB/Wheezing Levalbuterol Tartrate (Levalbuterol Tartrate Hfa), 2 PUFF INH Q4H PRN for SOB/ Wheezing Sumatriptan Succinate (Imitrex Statdose), 0.5 ML INJ UD PRN for Migraine Sumatriptan Succinate (Imitrex Nasal [place]), 1 SPRAY NA UD PRN for Migraine Miscellaneous Medications Durvalumab (Imfinzi) Physical Exam Vital Signs Date Time Temp Pulse Resp B/P (MAP) Pulse Ox O2 Delivery O2 Flow Rate FiO2 08/17/17 19:25 36.8 83 16 138/71 97 Room Air Physical Exam CONSTITUTIONAL: Healthy and well nourished. Alert and oriented X 3 with positive affect. GCS 15. Patient does not appear in any acute distress. HEENT: Examination shows a small abrasion to the right forehead with no hematoma formation. Pupils equal, round and reactive. Extraocular movements intact. Sclera anicteric. Ears, nose and oropharynx clear without epistaxis, hemotympanum, raccoon's eyes or thao sign. NECK: Patient has mild tenderness to palpation of the left cervical musculature. No focal tenderness through the central cervical region. No lymphadenopathy, jugular venous distention, or bruits noted. RESPIRATORY: Clear to auscultation bilaterally with no wheezing, crackles, rhonchi or stridor. CARDIOVASCULAR: Regular rate and rhythm with no murmurs, rubs or gallops. GASTROINTESTINAL: Bowel sounds present in all quadrants. MUSCULOSKELETAL: Full range of motion of all joints without discomfort. Patient has no tenderness to palpation through the central thoracolumbar spine, ribs or shoulders. INTEGUMENTARY: No rash or other significant dermatologic conditions noted. NEUROLOGIC: Cranial nerves II-XII grossly intact. Deep tendon reflexes 2+ and bilaterally symmetric. No focal neurologic deficits noted. No ataxia with ambulation. Medical Decision & Procedures ER Provider Diagnostic Interpretation: Noncontrast CT of the head and cervical spine does not show any intracranial bleed, midline shift, mass-effect or cervical spine fracture/subluxation. Radiologist reports were reviewed. I also reviewed images as well. ED Course Patient history and physical exam were performed. Nurse's notes were reviewed. Vital signs were reviewed and were normal. The patient refused any analgesics while in the emergency department. I did discuss performing a CT scan of the head and cervical spine. Patient was in agreement, especially given her history of lung cancer with metastases. Noncontrast CT of the head and cervical spine were normal. The patient was provided additional verbal and written instructions for concussion care. The patient was encouraged to try limiting her hydrocodone use as much as possible to avoid masking worsening concussion symptoms. I did encourage her to follow-up with her family doctor for close management. She was also provided wound care instructions. The patient was happy with plan of care, voiced understanding of all discharge instructions, and rated her discomfort a 6 out of 10 at the time of discharge, refusing any analgesics at that time. Medical Decision Medication Reconcilliation Current Medication List: was personally reviewed by me Blood Pressure Screening Patient's blood pressure: Normal blood pressure Impression Primary Impression: Concussion Additional Impressions: Fall (on) (from) other stairs and steps, initial encounter Cervical strain, acute Forehead abrasion Departure Information Dispostion Home / Self-Care Forms HOME CARE DOCUMENTATION FORM, IMPORTANT VISIT INFORMATION Patient Instructions [facility]cussion, [facility] Additional Instructions Read concussion handout. Intermittently apply ice to areas of discomfort. Take your home pain medications as needed. Suggest follow-up with your family doctor for further concussion management. Keep forehead wound clean and covered with an antibiotic ointment and dressing until it heals. Problem Qualifiers Primary Impression: Concussion Encounter type: initial encounter Loss of consciousness presence/duration: without LOC Qualified Codes: S06.0X0A - Concussion without loss of consciousness, initial encounter Additional Impressions: Cervical strain, acute Encounter type: initial encounter Qualified Codes: S16.1XXA - Strain of muscle, fascia and tendon at neck level, initial encounter Forehead abrasion Encounter type: initial encounter Qualified Codes: S00.81XA - Abrasion of other part of head, initial encounter
== END 2017-08-17 21:02 | disposition home or self-care (01) ==
LOC: C.EDB 19:12 → C.EDD 21:02
DX: S06.0X0A Concussion without loss of consciousness, initial encounter (principal); S16.1XXA Strain of muscle, fascia and tendon at neck level, initial encounter; W01.198A Fall on same level from slipping, tripping and stumbling with subsequent striking against other object, initial encounter; R40.2412 Glasgow coma scale score 13-15, at arrival to emergency department; J45.909 Unspecified asthma, uncomplicated; E03.9 Hypothyroidism, unspecified; Z79.899 Other long term (current) drug therapy; Z83.3 Family history of diabetes mellitus; Z82.49 Family history of ischemic heart disease and other diseases of the circulatory system

== ENCOUNTER → 2017-09-20 | Outpatient (CLI) | payer OTHER ==
--- NOTE | 2017-09-20 13:56 | DIAGNOSTIC IMAGING REPORT ---
TWO VIEW CHEST CLINICAL HISTORY: Non-small cell lung cancer. FINDINGS: PA and lateral chest radiographs are compared to study dated 06/21/2017 and correlated with chest CT dated 07/19/2018. The heart is top normal for projection. The pulmonary vasculature is noncongested. Emphysema and chronic interstitial thickening are similar to previous. There are postoperative changes and volume loss in the left lung consistent with a history of left-sided pulmonary resection. There is no airspace consolidation typical for pneumonia or pleural effusion. A 2.0 cm irregular opacity is seen in the left suprahilar region. This is more conspicuous than on prior examinations. There is no pneumothorax. The skeletal structures are osteopenic. Degenerative change and scoliosis are noted in the thoracic spine. IMPRESSION: 1. Emphysema and postoperative change from left-sided pulmonary resection. 2. There is no airspace consolidation typical for pneumonia or pleural effusion. 3. There is an increasingly conspicuous 2.0 cm density in the left suprahilar region. Although this could represent postoperative change/scarring, recurrent/residual neoplasm is not excluded. Continued attention at follow-up is recommended. Electronically signed by: Raul Grider M.D. 09/20/2017 1:54 PM Dictated Date/Time: 09/20/2017 1:52 PM
== END | disposition home or self-care (01) ==
LOC: C.RAD 13:32
PROVIDERS: ATTEND Internal Medicine Hematology & Oncology
DX: C34.12 Malignant neoplasm of upper lobe, left bronchus or lung (principal); J43.9 Emphysema, unspecified

== ENCOUNTER → 2017-09-26 | Outpatient (CLI) | payer OTHER ==
--- NOTE | 2017-09-26 15:41 | DIAGNOSTIC IMAGING REPORT ---
CHEST 2 VIEWS ROUTINE HISTORY: NON-SMALL CELL LUNG CANCER COMPARISON: Chest 09/20/2017. FINDINGS: Emphysema. Postoperative changes within the left hilum are again noted. No pleural effusions. No pneumothorax. The heart is normal in size. No new focal lung consolidations to suggest pneumonia. No evidence for pulmonary edema. Stable left perihilar nodular thickening measuring 12 mm. Questionable hazy nodular density within the left upper lobe has improved. IMPRESSION: 1. Improvement in the left upper lobe hazy nodular density. This may represent resolving inflammatory/infectious change. 2. Otherwise, no significant change in the left perihilar nodular thickening. 3. No new focal lung consolidations to suggest pneumonia. Electronically signed by: Daren Licona M.D. 09/26/2017 3:40 PM Dictated Date/Time: 09/26/2017 3:37 PM
== END | disposition home or self-care (01) ==
LOC: C.RAD 14:35
PROVIDERS: ATTEND Internal Medicine Hematology & Oncology
DX: C34.12 Malignant neoplasm of upper lobe, left bronchus or lung (principal)

== ENCOUNTER 2020-10-06 20:42 | Inpatient (IN) ==
[2020-10-06] MEDS ORDERED: SODIUM CHLORIDE 0.9% 500 ML IV SCH (21:15)
--- NOTE | 2020-10-06 21:38 | Emergency Department Note ---
Impression & Plan Weakness, Lung cancer, Hyponatremia, Recurrent pleural effusion on left, Anemia, Neutropenia, Thrombocytopenic ED Provider Note Provider: Jose Manuel Olguin MD DATE OF SERVICE: 10/06/2020 CHIEF COMPLAINT: Weakness HISTORY OF PRESENT ILLNESS: Patient is a 65-year-old female with a past medical history including stage IV lung cancer (on chemotherapy) with a left pleural catheter, PUD, breast cancer presenting with son today reporting increased generalized weakness over the last several days. Patient denies any pain at this point. States she has been nauseous sometimes using nausea medicine at home with mild improvement. No vomiting or abdominal pain reported. Not eating or drinking very much. A little bit of lower leg swellings reported. Patient son is present and helps care for her at home reports patient over the last week has had significant increase in generalized weakness. Now not really able to walk but no significant falls reported. Patient denies shortness of breath c urrently or fever or chills. Son has noted little bit of redness develop around the left lower chest and upper abdominal wall where the Pleurx catheter exits. States his mother has been laying on this a bit and denies bandaging here. Currently receiving chemotherapy. Last drainage from the Pleurx catheter was a week ago and reportedly very little drainage was obtained. REVIEW OF SYSTEMS: A total of 10 review of systems was obtained and negative except as stated above in the HPI. PAST MEDICAL HISTORY: As noted above MEDICATIONS: Reviewed home medication list SOCIAL HISTORY: Non-smoker, lives at home with son PHYSICAL EXAM: GENERAL: alert and oriented lying in the bed appears quite fatigued Head: normocephalic and atraumatic EYES: No injection, discharge or icterus. NECK: Trachea midline. LUNGS: Airway patent. No retractions. Breath sounds diminished on the left HEART: Regular rate and rhythm. No chest wall tenderness ABDOMEN: Soft and non-tender, without guarding or rebound. With a left upper abdominal rectus catheter drainage site with some surrounding erythema but no c repitus or tenderness. No discharge appreciated from around the site. SKIN: Acyanotic, warm, dry EXTREMITIES: 2+ lower extremity swelling without significant tenderness. NEUROLOGICAL: No focal deficits moving all extremities. No aphasia. No facial droop or slurred speech. EK bpm sinus tachycardia. No PVC or PAC. No acute ST segment elevation with a QTC of 413. CONTINUOUS CARDIAC MONITORING: was ordered and showed a heart rate of 100s-120s bpm in sinus tachycardia 1 view chest x-ray from interpretation: Significant relation of left pleural effusion with total opacity. Pleurx catheter appears in the left base. Right lung appears fairly clear without evidence of pneumothorax. Patient's laboratory studies and imaging reviewed. Differential includes Infection, dehydration, metabolic abnormality, hypo/hyperglycemia, electrolyte disturbance, anemia, hypoxia, cardiac sources, intracerebral event, toxicologic, neurologic, as well as other pathologies. IMPRESSION/MEDICAL DECISION MAKING: Patient resents with son with weakness decreased intake and generalized fatigue. No fevers reported or trauma. Patient denies significant pain. Have noted some redness around her left Pleurx catheter has not been draining very much. Patient reportedly is on chemotherapy and again fighting cancer. Chest x-ray as above shows evidence of regulation significant left pleural effusion. Slight tachypnea but not hypoxic here not in respiratory distress. Likely needs this to be reevaluated may need further drainage. Some difficulty obtaining blood work. Given fluid bolus given her decreased intake. Blood work shows evidence of some renal dysfunction but similar to several days ago. Persistent hyponatremia of 129 is noted slightly improved from several days ago. Lactate slightly elevated 2.2. TSH abnormal but free T4 is normalized. Low albumin. Troponin not elevated. Slight AST elevation. Patient is neutropenic as well as new thrombocytopenia and worsened anemia. Do not see active bleeding. Do of some concern for possible worsening redness around the area of the Pleurx catheter although she is not have a fever some concern for infection versus petechial changes given the thrombocytopenia. Do not feel she requires acute transfusion and likely these are the result of her chemotherapeutic agents causing marrow suppression. Reviewed with the pharmacy staff given her antibiotic allergy issues in the past and concerns today; in discussion believe ertapenem will be a broad-spectrum antibiotics with sufficient coverage and with a low risk for significant reaction. Doubt VTE given her anticoagulation status. Given her significant weakness, accumulated pleural effusion, redness on the chest wall, and pancytopenia with dehydration findings believe further hospitalization is warranted and she and her son were in agreement this plan. Patient was given some IV fluid hydration here again but wished to avoid significant fluid overload and thus gently given. DIAGNOSIS: Weakness, right chest wall cellulitis, recurrent left pleural effusion, hyponatremia, neutropenia, anemia, thrombocytopenia DISPOSITION: Hospitalist will evaluate Patient was agreeable with this plan. Son was updated at bedside. Past Med/Surg History Medical History Anxiety Asthma Bronchitis hx recurrent Chronic back pain Degenerative disc disease Depression Gastric cardia ulcer hx GERD (gastroesophageal reflux disease) History of acute bronchitis History of asthma History of candidiasis of mouth History of neutropenia History of sinusitis Hx of cyst of breast with aspiration/no cancer Hypothyroidism Migraine Non-small cell carcinoma of lung Obstructive sleep apnea per records/pt denies Vocal cord paralysis left side (since 2013) Surgical History H/O colonoscopy H/O tubal ligation 1978 H/O vaginal hysterectomy History of bronchoscopy x3 (2013, 2014, 2016) History of cataract surgery bilateral History of esophagogastroduodenoscopy History of lobectomy of lung JOHN (2013) History of reversal of tubal ligation late S/P bronchoscopy with biopsy (06/29/19) Navigational Bronchoscopy With Biopsy Dr. Tapia 06-29-19 S/P epidural steroid injection S/P laparotomy ruptured tubal S/P left knee arthroscopy S/P right knee arthroscopy Family History Father FHx: bladder cancer hx smoking Brother FHx: prostate cancer Sister Family history of diabetes mellitus Grandmother (Maternal) Family history of diabetes mellitus Grandmother (Paternal) Family history of diabetes mellitus Mother Stroke Other No pertinent family history Social History Smoking Status: Never smoker Second Hand Exposure: No; Hx Alcohol Use: No Hx Substance Use: No Preferred Language: [place]ij[place] Communication Ability: Effective Visual Impairment: No Limitations Hearing Ability: Normal Facilities Technician Required: No Beliefs That Will Affect Care: None Current Living Situation: Family Current Living Situation Comment: son lives with pt current occupational status: retired Feels Safe at Home: Yes Assistive Devices: None Allergies Allergies Allergy/AdvReac Type Severity Reaction Status Date / Time Cephalosporins Allergy Intermediate ITCHINESS, Verified 10/06/20 21:43 RASH Sulfa (Sulfonamide Allergy Intermediate ITCHY/RASH Verified 10/06/20 21:44 Antibiotics) TO SULFA DRUGS Home Meds Home Medications Medication Instructions Recorded Confirmed gabapentin 600 mg PO BID 09/16/18 10/06/20 ondansetron HCl 24 mg tablet 4 mg PO Q8H PRN tab 02/07/19 10/06/20 immune globu G 5 gram/50 mL(10 5 gm SUBCUT .weekly ml 05/14/19 10/06/20 %)-gly-IgA ave 46 mcg/mL injection soln levothyroxine 100 mcg PO QAM 06/25/19 10/06/20 apixaban [Eliquis] 5 mg PO BID 10/06/20 10/06/20 levalbuterol tartrate 2 puff INHALATION BID PRN 10/06/20 10/06/20 montelukast 10 mg PO HS 10/06/20 10/06/20 Previous Rx's Medication Instructions Recorded albuterol sulfate 2.5 mg INHALATION Q4H PRN #180 ml 07/16/20 memantine 10 mg tablet 10 mg PO BID #60 tab 08/29/20 Results & Data (ED) Vital Signs Vital Signs - 24 hr 10/06/20 20:45 10/06/20 20:51 10/06/20 20:52 Temperature 36.0 C L Temperature Source Temporal Artery Scan Pulse Rate [Apical] 126 H Respiratory Rate 26 H Respiratory Effort / Characteristics Non-Labored Spontaneous Respiratory Depth Normal Blood Pressure 68/51 L Blood Pressure [Right Arm] 108/62 Blood Pressure Mean 56 Blood Pressure Mean [Right Arm] 77 Blood Pressure Position Sitting Pulse Oximetry 94 Oxygen Delivery Method Room Air Room Air Sepsis Recent Fever Within 48 Hours No Sepsis New/Unexplained Change in Mental Status N/A Sepsis Action Taken by Nursing No Action Required Laboratory Data Result diagrams: 10/06/20 22:39 10/06/20 22:39 Lab Results 10/06/20 10/06/20 10/06/20 Range/Units 22:39 22:39 22:39 WBC 0.10 L* (4.8-10.8) K/uL RBC 2.63 L (4.2-5.4) M/uL Hgb 7.7 L (12.0-16.0) g/dL Hct 22.5 L (37-47) % MCV 85.6 (80-100) fL MCH 29.3 (25-34) pg MCHC 34.2 (32-36) g/dL RDW Std Deviation 50.7 H (36.4-46.3) fL RDW Coeff of Karen 15.9 H (11.5-14.5) % Plt Count 44 L (130-400) K/uL MPV 10.3 (7.4-10.4) fL Immature Gran % (Auto) Cancelled Neut % (Auto) Cancelled Lymph % (Auto) Cancelled [place] % (Auto) Cancelled Eos % (Auto) Cancelled Baso % (Auto) Cancelled Neut # (Auto) Cancelled Lymph # (Auto) Cancelled [place] # (Auto) Cancelled Eos # (Auto) Cancelled Baso # (Auto) Cancelled Immature Gran # (Auto) Cancelled Neutrophils % (Manual) Cancelled Band Neutrophils % Cancelled Lymphocytes % (Manual) Cancelled Prolymphocyte % Cancelled Reactive Lymphs % (Man) Cancelled Monocytes % (Manual) Cancelled Eosinophils % (Manual) Cancelled Basophils % (Manual) Cancelled Metamyelocytes % (Man) Cancelled Myelocytes % (Man) Cancelled Promyelocytes % (Man) Cancelled Blast Cells % (Manual) Cancelled Plasma Cell % (Manual) Cancelled Other Cells % Cancelled Nucleated RBC % Cancelled Neutrophils # (Manual) Cancelled Band Neutrophils # Cancelled Total Absolute Neuts Cancelled Lymphocytes # (Manual) Cancelled Prolymphocyte # Cancelled Reactive Lymphs # Cancelled Total Abs Lymphocytes Cancelled Monocytes # (Manual) Cancelled Eosinophils # (Manual) Cancelled Basophils # (Manual) Cancelled Metamyelocytes # (Man) Cancelled Myelocytes # (Manual) Cancelled Promyelocytes # (Man) Cancelled Blast Cells # (Man) Cancelled Plasma Cell # (Manual) Cancelled Other Cells # Cancelled Nucleated RBCs # (Man) Cancelled Hypersegmented Neuts Cancelled Hyposegmented Neuts Cancelled Hypogranular Neuts Cancelled Large Granular Lymphs Cancelled # Lrg Granular Lymphs Cancelled Hairy Cells Cancelled Smudge Cells Cancelled Toxic Granulation Cancelled Toxic Vacuolation Cancelled Dohle Bodies Cancelled Thea Rods Cancelled Platelet Estimate SIGNIFIC DECREASED (Normal) Hypogranular Platelets Cancelled Clumped Platelets Cancelled Giant Platelets Cancelled Platelet Satelliting Cancelled RBC Morphology Cancelled Polychromasia Cancelled Hypochromasia Cancelled Poikilocytosis Cancelled Basophilic Stippling Cancelled Anisocytosis Cancelled Microcytosis Cancelled Macrocytosis Cancelled Spherocytes Cancelled Pappenheimer Bodies Cancelled Sickle Cells Cancelled Target Cells Cancelled Tear Drop Cells Cancelled Ovalocytes Cancelled Stomatocytes Cancelled [place] Bodies Cancelled Echinocytes Cancelled Acanthocytes (Spur) Cancelled Rouleaux Cancelled RBC Agglutinates Cancelled Schistocytes Cancelled RBC Morph Comment Cancelled Sezary Cell Cancelled Sodium 129 L (136-145) mmol/L Potassium 4.5 (3.5-5.1) mmol/L Chloride 97 L (98-107) mmol/L Carbon Dioxide 20 L (21-32) mmol/L Anion Gap 12.0 H (3-11) BUN 57 H (7-18) mg/dl Creatinine 1.24 H (0.6-1.2) mg/dl Est Cr Clr Drug Dosing Not Reportable Est GFR ( Amer) 52.8 ml/min Est GFR (Non-Af Amer) 45.5 ml/min BUN/Creatinine Ratio 45.8 H (10-20) Glucose 109 H (70-99) mg/dl POC Glucose (70-99) mg/dl Lactate 2.2 H* (0.4-2.0) mmol/L Calcium 8.7 (8.5-10.1) mg/dl Magnesium 2.2 (1.8-2.4) mg/dl Total Bilirubin 1.0 (0.2-1) mg/dl AST 65 H (15-37) U/L ALT 20 (12-78) U/L Alkaline Phosphatase 110 (45-117) U/L Troponin I < 0.015 (0-0.045) ng/ml Total Protein 5.6 L (6.4-8.2) gm/dl Albumin 1.3 L (3.4-5.0) gm/dl Globulin 4.3 H (2.5-4.0) gm/dl Albumin/Globulin Ratio 0.3 L (0.9-2) Procalcitonin (0-0.5) ng/ml TSH 21.500 H (0.300-4.500) uIu/ml Free T4 1.09 (0.8-1.6) ng/dl COVID-19 Eval Order SARS-CoV-2 (PCR) (Negative) 10/06/20 10/06/2010/06/21 Range/Units 22:47 22:49 22:50 WBC (4.8-10.8) K/uL RBC (4.2-5.4) M/uL Hgb (12.0-16.0) g/dL Hct (37-47) % MCV (80-100) fL MCH (25-34) pg MCHC (32-36) g/dL RDW Std Deviation (36.4-46.3) fL RDW Coeff of Karen (11.5-14.5) % Plt Count (130-400) K/uL MPV (7.4-10.4) fL Immature Gran % (Auto) Neut % (Auto) Lymph % (Auto) [place] % (Auto) Eos % (Auto) Baso % (Auto) Neut # (Auto) Lymph # (Auto) [place] # (Auto) Eos # (Auto) Baso # (Auto) Immature Gran # (Auto) Neutrophils % (Manual) Band Neutrophils % Lymphocytes % (Manual) Prolymphocyte % Reactive Lymphs % (Man) Monocytes % (Manual) Eosinophils % (Manual) Basophils % (Manual) Metamyelocytes % (Man) Myelocytes % (Man) Promyelocytes % (Man) Blast Cells % (Manual) Plasma Cell % (Manual) Other Cells % Nucleated RBC % Neutrophils # (Manual) Band Neutrophils # Total Absolute Neuts Lymphocytes # (Manual) Prolymphocyte # Reactive Lymphs # Total Abs Lymphocytes Monocytes # (Manual) Eosinophils # (Manual) Basophils # (Manual) Metamyelocytes # (Man) Myelocytes # (Manual) Promyelocytes # (Man) Blast Cells # (Man) Plasma Cell # (Manual) Other Cells # Nucleated RBCs # (Man) Hypersegmented Neuts Hyposegmented Neuts Hypogranular Neuts Large Granular Lymphs # Lrg Granular Lymphs Hairy Cells Smudge Cells Toxic Granulation Toxic Vacuolation Dohle Bodies Thea Rods Platelet Estimate (Normal) Hypogranular Platelets Clumped Platelets Giant Platelets Platelet Satelliting RBC Morphology Polychromasia Hypochromasia Poikilocytosis Basophilic Stippling Anisocytosis Microcytosis Macrocytosis Spherocytes Pappenheimer Bodies Sickle Cells Target Cells Tear Drop Cells Ovalocytes Stomatocytes [place] Bodies Echinocytes Acanthocytes (Spur) Rouleaux RBC Agglutinates Schistocytes RBC Morph Comment Sezary Cell Sodium (136-145) mmol/L Potassium (3.5-5.1) mmol/L Chloride (98-107) mmol/L Carbon Dioxide (21-32) mmol/L Anion Gap (3-11) BUN (7-18) mg/dl Creatinine (0.6-1.2) mg/dl Est Cr Clr Drug Dosing Est GFR ( Amer) ml/min Est GFR (Non-Af Amer) ml/min BUN/Creatinine Ratio (10-20) Glucose (70-99) mg/dl POC Glucose 124 H (70-99) mg/dl Lactate (0.4-2.0) mmol/L Calcium (8.5-10.1) mg/dl Magnesium (1.8-2.4) mg/dl Total Bilirubin (0.2-1) mg/dl AST (15-37) U/L ALT (12-78) U/L Alkaline Phosphatase (45-117) U/L Troponin I (0-0.045) ng/ml Total Protein (6.4-8.2) gm/dl Albumin (3.4-5.0) gm/dl Globulin (2.5-4.0) gm/dl Albumin/Globulin Ratio (0.9-2) Procalcitonin 18.06 H (0-0.5) ng/ml TSH (0.300-4.500) uIu/ml Free T4 (0.8-1.6) ng/dl COVID-19 Eval Order Covid19 at [facility] SARS-CoV-2 (PCR) (Negative) 10/06/20 Range/Units 22:50 WBC (4.8-10.8) K/uL RBC (4.2-5.4) M/uL Hgb (12.0-16.0) g/dL Hct (37-47) % MCV (80-100) fL MCH (25-34) pg MCHC (32-36) g/dL RDW Std Deviation (36.4-46.3) fL RDW Coeff of Karen (11.5-14.5) % Plt Count (130-400) K/uL MPV (7.4-10.4) fL Immature Gran % (Auto) Neut % (Auto) Lymph % (Auto) [place] % (Auto) Eos % (Auto) Baso % (Auto) Neut # (Auto) Lymph # (Auto) [place] # (Auto) Eos # (Auto) Baso # (Auto) Immature Gran # (Auto) Neutrophils % (Manual) Band Neutrophils % Lymphocytes % (Manual) Prolymphocyte % Reactive Lymphs % (Man) Monocytes % (Manual) Eosinophils % (Manual) Basophils % (Manual) Metamyelocytes % (Man) Myelocytes % (Man) Promyelocytes % (Man) Blast Cells % (Manual) Plasma Cell % (Manual) Other Cells % Nucleated RBC % Neutrophils # (Manual) Band Neutrophils # Total Absolute Neuts Lymphocytes # (Manual) Prolymphocyte # Reactive Lymphs # Total Abs Lymphocytes Monocytes # (Manual) Eosinophils # (Manual) Basophils # (Manual) Metamyelocytes # (Man) Myelocytes # (Manual) Promyelocytes # (Man) Blast Cells # (Man) Plasma Cell # (Manual) Other Cells # Nucleated RBCs # (Man) Hypersegmented Neuts Hyposegmented Neuts Hypogranular Neuts Large Granular Lymphs # Lrg Granular Lymphs Hairy Cells Smudge Cells Toxic Granulation Toxic Vacuolation Dohle Bodies Thea Rods Platelet Estimate (Normal) Hypogranular Platelets Clumped Platelets Giant Platelets Platelet Satelliting RBC Morphology Polychromasia Hypochromasia Poikilocytosis Basophilic Stippling Anisocytosis Microcytosis Macrocytosis Spherocytes Pappenheimer Bodies Sickle Cells Target Cells Tear Drop Cells Ovalocytes Stomatocytes [place] Bodies Echinocytes Acanthocytes (Spur) Rouleaux RBC Agglutinates Schistocytes RBC Morph Comment Sezary Cell Sodium (136-145) mmol/L Potassium (3.5-5.1) mmol/L Chloride (98-107) mmol/L Carbon Dioxide (21-32) mmol/L Anion Gap (3-11) BUN (7-18) mg/dl Creatinine (0.6-1.2) mg/dl Est Cr Clr Drug Dosing Est GFR ( Amer) ml/min Est GFR (Non-Af Amer) ml/min BUN/Creatinine Ratio (10-20) Glucose (70-99) mg/dl POC Glucose (70-99) mg/dl Lactate (0.4-2.0) mmol/L Calcium (8.5-10.1) mg/dl Magnesium (1.8-2.4) mg/dl Total Bilirubin (0.2-1) mg/dl AST (15-37) U/L ALT (12-78) U/L Alkaline Phosphatase (45-117) U/L Troponin I (0-0.045) ng/ml Total Protein (6.4-8.2) gm/dl Albumin (3.4-5.0) gm/dl Globulin (2.5-4.0) gm/dl Albumin/Globulin Ratio (0.9-2) Procalcitonin (0-0.5) ng/ml TSH (0.300-4.500) uIu/ml Free T4 (0.8-1.6) ng/dl COVID-19 Eval Order SARS-CoV-2 (PCR) NEGATIVE (Negative) Administered Medications Discontinued Medications Sodium Chloride (Nss) 500 mls @ 999 mls/hr IV .Q31M CHEPE Stop: 10/06/20 21:45 Last Infusion: 10/06/20 22:44 Dose: 0 mls/hr Documented by: [id number] Admin: 10/06/20 22:00 Dose: 999 mls/hr Documented by: [id number] Discharge Plan Visit Data Chief Complaint: Weakness Stated Complaint: weakness ED Provider: Jose Manuel Olguin Discharge Problem: Weakness, Lung cancer, Hyponatremia, Recurrent pleural effusion on left, Anemia, Neutropenia, Thrombocytopenic Patient Disposition: Being Evaluated by Hospitalist Forms Stand Alone Forms: My [facility] Prescriptions Prescriptions: No Action Gamunex-C 5 gram/50 mL (10 %) solution 5 gm subcut .weekly RF: 0 albuterol sulfate 2.5 mg /3 mL (0.083 %) solution for nebulization 2.5 mg inhalation Q4H PRN (Reason: shortness of breath or wheezing) Qty: 180 RF: 3 memantine [Namenda] 10 mg tablet 10 mg PO BID Qty: 60 RF: 5 ondansetron HCl 24 mg tablet 4 mg PO Q8H PRN (Reason: nausea and vomiting) RF: 0 levothyroxine 100 mcg Tablet 100 mcg PO QAM RF: 0 gabapentin 600 mg tablet 600 mg PO BID RF: 0 montelukast 10 mg tablet 10 mg PO HS RF: 0 Eliquis 5 mg tablet 5 mg PO BID RF: 0 levalbuterol tartrate 45 mcg/actuation HFA aerosol inhaler 2 puff INHALATION BID PRN (Reason: Shortness Of Breath Or Wheezing) RF: 0 Referrals Referrals: Toñito King DO [Primary Care Provider] - Discharge Problem: Lung cancer Qualifiers: Laterality: unspecified laterality Lung location: unspecified part of lung Qualified Code(s): C34.90 - Malignant neoplasm of unspecified part of unspecified bronchus or lung Anemia Qualifiers: Anemia type: unspecified type Qualified Code(s): D64.9 - Anemia, unspecified Neutropenia Qualifiers: Neutropenia type: secondary to cancer chemotherapy Qualified Code(s): D70.1 - Agranulocytosis secondary to cancer chemotherapy
[2020-10-06 23:30] LABS: Alanine Aminotransferase 20 U/L (12-78); Albumin Level 1.3 gm/dl (3.4-5.0); Aspartate Aminotransferase 65 U/L (15-37); BUN Creatinine Ratio 45.8 (10-20); Blood Urea Nitrogen 57 mg/dl (7-18); Calcium 8.7 mg/dl (8.5-10.1); Carbon Dioxide 20 mmol/L (21-32); Chloride 97 mmol/L (98-107); Est GFR (African American) 52.8 ml/min; Est GFR (Non-African American) 45.5 ml/min; Glucose 109 mg/dl (70-99); Magnesium 2.2 mg/dl (1.8-2.4); Potassium 4.5 mmol/L (3.5-5.1); Sodium 129 mmol/L (136-145)
[2020-10-06 23:41] LABS: Albumin Globulin Ratio 0.3 (0.9-2); Alkaline Phosphatase 110 U/L (45-117); Globulin 4.3 gm/dl (2.5-4.0); Total Protein 5.6 gm/dl (6.4-8.2); Troponin I < 0.015 ng/ml (0-0.045)
[2020-10-06 23:54] LABS: T4 Free Thyroxine 1.09 ng/dl (0.8-1.6)
[2020-10-06 23:59] LABS: Hematocrit (blood only) 22.5 % (37-47); Hemoglobin 7.7 g/dL (12.0-16.0); Mean Corpuscular Hemoglobin 29.3 pg (25-34); Mean Corpuscular Hgb Conc 34.2 g/dL (32-36); Mean Corpuscular Volume 85.6 fL (80-100); Mean Platelet Volume 10.3 fL (7.4-10.4); Platelet Count 44 K/uL (130-400); RDW Coefficient of Variation 15.9 % (11.5-14.5); RDW Standard Deviation 50.7 fL (36.4-46.3); Red Blood Count 2.63 M/uL (4.2-5.4)
[2020-10-07] MEDS ORDERED: LACTATED RINGER'S 500 ML IV ONE (00:01)
[2020-10-07 00:02] LABS: Platelet Estimate SIGNIFIC DECREASED (Normal)
[2020-10-07] MEDS ORDERED: ERTAPENEM SODIUM 10 ML IV SCH ×2 (00:10→00:21)
[2020-10-07] MEDS ORDERED: ERTAPENEM SODIUM 10 ML IV STA (00:21)
[2020-10-07] MEDS ORDERED: APIXABAN 5 MG TABLET PO STA (01:50)
--- NOTE | 2020-10-07 04:33 | History and Physical Report ---
DATE OF ADMISSION: 10/07/2020 CHIEF COMPLAINT: Weakness. HISTORY OF PRESENT ILLNESS: This is a 65-year-old female with past medical history significant for asthma, frequent episodes of pneumonia, history of metastatic caj-gbyjd-jftb lung cancer, malignant pleural effusion, status post PleurX catheter, peptic ulcer disease, history of intractable vomiting, brain metastases, migraine, immunodeficiency common variable, depression, fatigue, loss of weight. The patient was initially diagnosed with kdp-[id number] lung cancer in 2013. At that time, she underwent left upper lobectomy in December 2013 and also had 4 cycles of chemo with carboplatin and Taxol chemotherapy. Then again the cancer recurred in 2016 with metastatic nue-vbjue-sede lung carcinoma. At that time, she had chemotherapy and radiation therapy again. In July of 2020, brain MRI showed enhancing lesions throughout the brain parenchyma compatible with intracranial metastasis and she was treated with steroids. Currently she is off the steroids. Currently, she was started on new chemo as per son.. She was also started on Namenda for cognitive decline and Eliquis for recent PE. Lives with her son. Lately she has become extremely weak. She is not able to even ambulate. She is requiring lot of assistance for ambulation, even with a walker she is not able to ambulate and very poor appetite, not able to eat anything much. Son also noticed sacral decubitus ulcer. Because of this ongoing weakness and poor appetite, nonambulatory status, the patient was brought to the hospital. She has a PleurX catheter in left side of the chest, it was drained about a week ago. The patient is currently talking very slowly, seems to be very weak. Denies any headache, denies any chest pain. Denies any shortness of breath. Denies any cough. Nauseous, but no vomiting. No abdominal pain. Somewhat constipated. Normal bladder movements. No rash anywhere. Some swelling in the lower extremities, but that seems better as per the son. No fevers, no neck pain. ALLERGIES: CEPHALOSPORIN, SULFA ANTIBIOTICS. PAST MEDICAL HISTORY: As mentioned above. PAST SURGICAL HISTORY: Colonoscopy, EGD, laryngoscopy, vocal cord injection, ligation of oviducts, cataract surgeries, meniscal repair, Treat ectopic , vaginal hysterectomy. MEDICATIONS: The patient is on albuterol 2.5 mg inhalation q. 4 hours p.r.n., Eliquis 5 mg p.o. b.i.d., gabapentin 600 mg p.o. b.i.d., immunoglobulin subcutaneous weekly, levalbuterol 2 puffs inhalation b.i.d. p.r.n., levothyroxine 100 mcg p.o. a.m., memantine 10 mg p.o. b.i.d., montelukast 10 mg at p.o. bedtime, Zofran 4 mg p.o. q. 8 hours p.r.n. FAMILY HISTORY: Significant for mother had asthma, hypertension, stroke, hypothyroidism; father had bladder cancer, hypertension; sister has pernicious anemia, diabetes; maternal and paternal grandmother had diabetes. SOCIAL HISTORY: , currently living with her son. No smoking. Alcohol rarely. No drug use. REVIEW OF SYSTEMS: As per HPI. Rest of the review of symptoms negative. PHYSICAL EXAMINATION: GENERAL: The patient is very weak, not in acute distress. VITAL SIGNS: Temperature 36, pulse 115, respiratory rate 20, blood pressure 108/62, oxygen 98% on room air. HEENT: Pupils equal, round, and reactive to light. Oral mucosa dry. NECK: No JVD, no neck masses. CARDIOVASCULAR: S1, S2 heard, regular rate and rhythm, no murmur, no gallop. RESPIRATORY SYSTEM: Normal AP diameter. No accessory muscle use. Diminished breath sounds on the left side. No wheezing. Erythematous changes around Pleurx cath on left side of the chest. ABDOMEN: Soft, bowel sounds present, nontender. No distention. CENTRAL NERVOUS SYSTEM: Somewhat slow to answer, alert and oriented. Speech is in low volume, but clear. No facial droop. Obeys commands. Moves extremities. EXTREMITIES: Mild pedal edema present, no erythema seen. SKIN: Stage II sacral decubitus ulcer present. LABORATORY DATA: WBC 0.1, hemoglobin 7.7, hematocrit 22.5, platelets 44. Sodium 129, potassium 4.5, chloride 97, bicarbonate 20, BUN 57, creatinine 1.2, serum glucose 109, lactate 2.2, calcium 8.7, magnesium 2.2, total bilirubin 1, AST 65, ALT 20, alkaline phosphatase 110. Troponin I less than 0.015. Procalcitonin 18, TSH is 21.5, free T4 of 1. SARS-CoV-2 PCR negative. IMAGING DATA: Chest x-ray, whole left lung is whiteout, probably a large pleural effusion. EKG: Poor quality interpretation, sinus tachycardia at the rate of 114, inferior lead ST changes seen. ASSESSMENT AND PLAN: A 65-year-old female who presents with profound weakness. 1. Profound weakness: On chemo for metastatic zdiry-fyol-zhcr cancer, recently started on chemo. Poor ambulatory status and poor appetite and nausea. Also seems to have cellulitis around PleurX catheter site in the left chest wall. Also left lung is totally white on x-ray, probably large malignant pleural effusion, saturating okay on room air. PleurX catheter is present. Empirically started on vancomycin and Invanz and follow the cultures. Consult pulmonary in the a.m. for the pleural effusion and lung lesion. Will also follow the CT of the chest and closely monitor in the tele floor. 2. Pancytopenia: WBC 0.1, hemoglobin 7.7, and platelets of 44. We will follow the stool for Hemoccult. Most likely from chemo. Neutropenic precautions. Blood consent obtained. Follow the repeat labs and transfuse as needed.. 3. Metabolic acidosis probably from sepsis or from starvation ketosis. Getting dextrose with fluids. We will follow the repeat labs. 4. Acute kidney Injury: Presently with creatinine of 1.2, baseline creatinine of around 0.8. Getting fluids. Avoid nephrotoxic agents. Follow the repeat labs in the a.m. 5. Hyponatremia: Sodium of 129. Getting fluids. Follow the repeat labs in the a.m.If any concerns will consult nephrology. 6. Elevated lactic acid: Possible from ongoing illness and sepsis or cancer. We will follow the repeat labs. 7. Ekg chages. poor quality. troponin negative. no chest pain. follow repeat ekg and troponin and any concerns will consult cardiology. 8.. Recent pulmonary embolism: On Eliquis, she will continue. 9. Metastatic lung cancer: Follows with hematology/oncology. Chemo as per hematology/oncology. 10.. Hypothyroidism: On Synthroid. 11. stage sacral ulcer. Abx as above. Wound care. 12. Deep venous thrombosis prophylaxis: On Eliquis. DISPOSITION: Closely monitor in the tele floor. Code status: Full code as per my discussion with the patient. PT and OT prior to discharge. Social service to help with discharge planning. Addendum: patient was having tachycardia and hypotension.Got litre fluid bolus was still hypotensive and was ordered another 500cc bolus and BP not improving transferred to ICU for possible pressors. Patient follows with [facility] oncology. As per son last chemo was on October 02 and next chemo on october 16. MTDD
[2020-10-07] MEDS ORDERED: LACTATED RINGER'S 500 ML IV SCH (05:00)
[2020-10-07] MEDS ORDERED: D5W AND NSS 1,000 ML IV SCH (05:12)
[2020-10-07] MEDS ORDERED: LEVALBUTEROL TARTRATE 15 GM HFA.AER.AD INH PRN (05:12)
[2020-10-07] MEDS ORDERED: ALBUTEROL 0.083% NEBU SOLN 3 ML VIAL INH PRN (05:12)
[2020-10-07] MEDS ORDERED: ACETAMINOPHEN 325 MG TAB PO PRN (05:12)
[2020-10-07] MEDS ORDERED: ONDANSETRON INJ 2 MG/ML 2 ML VIAL IV PRN (05:12)
[2020-10-07] MEDS ORDERED: VANCOMYCIN CONSULT ACTIVE PRN (05:12)
[2020-10-07] MEDS ORDERED: VANCOMYCIN HCL 1,250 MG in SODIUM CHLORIDE 0.9% 250 ML IV ONE (05:30)
[2020-10-07] MEDS ORDERED: ERTAPENEM CONSULT ACTIVE PRN (05:35)
[2020-10-07 06:00] LABS: Hematocrit (blood only) 20.6 % (37-47); Hemoglobin 6.7 g/dL (12.0-16.0); Mean Corpuscular Hemoglobin 28.6 pg (25-34); Mean Corpuscular Hgb Conc 32.5 g/dL (32-36); Mean Platelet Volume 10.1 fL (7.4-10.4); Platelet Count 36 K/uL (130-400); RDW Coefficient of Variation 16.2 % (11.5-14.5); RDW Standard Deviation 51.8 fL (36.4-46.3); Red Blood Count 2.34 M/uL (4.2-5.4); White Blood Count 0.07 K/uL (4.8-10.8)
[2020-10-07 06:18] LABS: BUN Creatinine Ratio 48.1 (10-20); Calcium 8.2 mg/dl (8.5-10.1); Creatinine Clr Calc Pharmacy 44.3 ml/min; Est GFR (African American) 58.4 ml/min; Est GFR (Non-African American) 50.4 ml/min; Magnesium 2.1 mg/dl (1.8-2.4); Potassium 4.5 mmol/L (3.5-5.1)
[2020-10-07] MEDS ORDERED: STAT IV Infusion **Titration per Protocol STA ×2 (06:30→08:06)
[2020-10-07] MEDS ORDERED: LACTATED RINGER'S 1,000 ML IV ONE (06:30)
[2020-10-07] MEDS ORDERED: SODIUM CHLORIDE 0.9% 250 ML IV PRN (07:10)
--- NOTE | 2020-10-07 07:12 | Procedure Note ---
Procedure Note Date of Service October 07, 2020 Procedure: Internal Jugular Central Line Placement Attending: Dr. Lombardi APC: Azar Rodriguez PA-C Indication: Central Drug Administration, Poor Venous Access, Multiple Lab Draws Necessary, etc. Anesthesia: None/Lidocaine 1% Emergent verbal consent obtained from patient at bedside in the setting of active extremities. Patient with 1 peripheral 22-gauge IV in the LEFT thumb. Patient requiring large IV access for addition of multiple drips including vasopressor support. Conversation had with patient including risks, benefits, and alternatives. She verbally consents to emergent placement of central line and arterial line. A time-out was completed verifying correct patient, procedure, site, positioning, and implants(s) or special equipment if applicable. Patients LEFT Neck was cleansed and draped in the typical sterile fashion using Chloraprep. The Internal Jugular Vein and Carotid Artery were identified using ultrasound. The superficial tissue was anesthetized using 4.0 mL of 1% lidocaine without epinephrine under direct visualization with the ultrasound. After adequate ane sthetization was achieved, the Internal Jugular vein was cannulated under direct ultrasound guidance using an introducer needle on a syringe. Good venous blood return was maintained prior to removal of syringe from introducer needle. Using Seldinger Technique, a guide wire was advanced through the introducer needle without resistance. The introducer needle was removed and ultrasound images were obtained of the guide wire within the Internal Jugular Vein and saved to the patients medical record. The dilator was advanced to the vessel without resistance. The dilator was exchanged for the triple lumen catheter which was advanced into the vessel without resistance. The guide wire was removed intact from the catheter without issue. Claves were placed on each catheter tip with confirmation of good blood flow from each lumen. Each port was easily flushed with sterile saline. The catheter was placed at 15 cm and sutured in place. BioPatch was applied to the catheter and a sterile Tegaderm dressing was applied over the catheter with careful attention to sterility. Patient tolerated procedure well. No immediate complications were met. Post procedure x-ray was completed, placement was appropriate and no pneumothorax was noted. Images obtained are saved for permanent record Procedural Ultrasound Guidance: Procedure Date: 10/07/2020 Indication: Vasopressors, poor peripheral access, multiple medications, frequent lab draws Attending: Dr. Lombardi APC: Azar Rodriguez PA-C Artery AND Vein visualized: YES Compressible Vein: YES Guidewire or Short Catheter seen in vein prior to dilation: YES Line confirmed in Vein with ultrasound: YES Images obtained are saved for permanent record. Coding CPT Codes Tubes, Drains, and Vasc Access - Tubes, Drains, and Vasc Access: [id number] Insertion Of Non-tunneled Catheter Age 5 Yrs> ([id number]) Tubes, Drains, and Vasc Access - Tubes, Drains, and Vasc Access: [id number] Ultrasound Guidance For Vascular ([id number]) [facility] [place] Procedure Codes (Charges) Tubes, Drains, and Vasc Access Procedure 1: Tubes, Drains, and Vasc Access: [id number] Insertion Of Non-tunneled Catheter Age 5 Yrs> Procedure 2: Tubes, Drains, and Vasc Access: [id number] Ultrasound Guidance For Vascular
--- NOTE | 2020-10-07 07:31 | XRay Report ---
XR chest 1V portable CLINICAL HISTORY: Post line placement. Lung cancer. COMPARISON STUDY: Chest radiograph October 06, 2020. FINDINGS: No pneumothorax is identified. Tip of left internal jugular central line projects over the mediastinum, likely within the left brachiocephalic vein. Near complete opacification of the left hem ithorax is unchanged since exam performed on October 06, 2020 and increased since prior chest CT. Postope rative findings within the left hemithorax are noted. Left basilar pleural catheter is in place. IMPRESSION: 1. No pneumothorax following placement of a left internal jugular central line. 2. No change in near complete opacification of the left hemithorax, as described above. ACT 112: Negative or not required by law. Electronically signed by: Brandon Ragland M.D. 10/07/2020 7:29 AM
[2020-10-07] MEDS: NOREPINEPHRINE/D5W 8 MG/508 ML BAG IV SCH ×3 (07:40→20:27)
--- NOTE | 2020-10-07 07:56 | Procedure Note ---
Procedure Note Date of Service October 07, 2020 Procedure: Arterial Line Placement Attending: Dr. Lombardi APC: Azar Rodriguez PA-C Indication: Monitoring on Pressors Anesthesia: Lidocaine 1% Emergent verbal consent obtained from patient at bedside in the setting of active extremities. Patient with 1 peripheral 22-gauge IV in the LEFT thumb. Patient requiring large IV access for addition of multiple drips including vasopressor support. Conversation had with patient including risks, benefits, and alternatives. She verbally consents to emergent placement of central line and arterial line. A time-out was completed verifying correct patient, procedure, site, positioning, and implant(s) or special equipment if applicable. Allens test was performed to ensure adequate perfusion. Patients RIGHT wrist was prepped and draped in the usual sterile fashion. Ultrasound guidance was used to aid needle placement. A 20g Arrow arterial line was introduced into the RIGHT Radial artery. Catheter was threaded, and the needle was removed with appropriate blood return. Good waveform was observed. The patient tolerated the procedure well. Confirmation of placement with ultrasound. Blood Loss: Minimal Complications: None Procedural Ultrasound Guidance: Procedure Date: 10/07/2020 Indication: Pressors, Frequent lab draws, frequent ABGs Attending: Dr. Lombardi APC: Azar Rodriguez PA-C Artery Identified: YES Line confirmed in Artery with ultrasound: YES Complications: NONE Patient tolerated procedure: WELL Coding CPT Codes Tubes, Drains, and Vasc Access - Tubes, Drains, and Vasc Access: [id number] Insertion Catheter, Artery ([id number]) [facility] [place] Procedure Codes (Charges) Tubes, Drains, and Vasc Access Procedure 3: Tubes, Drains, and Vasc Access: [id number] Insertion Catheter, Artery
--- NOTE | 2020-10-07 08:19 | Critical Care Consultation ---
Date of Consultation October 07, 2020 Assessment & Plan (1) Admitted to intensive care unit: Reason Critically Ill: 65-year-old female in active extremitas with a significant past medical history of stage IV lung cancer with metastatic spread to the liver and brain admitted with sepsis from unknown source as well as pancytopenia with significant anemia. Patient in active extremitas with blood pressures in the 60s despite fluid resuscitation and appropriate antibiotic coverage. Patient with multiple significant comorbidities and high likelihood of nonsurvivable state. NEURO - * CAM ICU: NEGATIVE * Brain metastases: * Previously completed course of full brain radiation therapy. * Previously on oral Decadron. * No focal neurological deficits currently. CARDIAC/VASCULAR - * Hypotension: * Multifactorial in the setting of severe sepsis with septic shock as well as anemia. * Patient presenting to the ICU with profound hypotension. Initially resuscitated with intravenous lactated Ringer's bolus. She has a 22-gauge catheter in her LEFT hand without other IV sites. Patient was placed in Trendelenburg. Discussion with patient regarding resuscitative measures including central line and arterial line placement. She verbally consents. * Orders placed for Levophed drip. * Orders placed for type and cross as well as 2 units PRBC. * Sinus tachycardia on monitor at a rate of 120s. * Previous use of steroids. Will add stress dose steroids * Monitor on telemetry. 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 Additionally, she has metastases to the brain and liver. She remains on chemotherapy 2 weeks on, 2 weeks off. Unfortunately, given her presenting associated symptoms in the setting of infection as well as pancytopenia, her outlook is extremely grave. * Will benefit from Pleurx catheter drainage. * Agree with antibiotic coverage for possible infection to the LEFT-sided Pleurx catheter site. * Supplemental O2 as needed. * Saturating well on room air to this point. GI/NUTRITION - * N.p.o. RENAL/LYTES - * SERGIO: * Likely secondary to hypovolemia and hypotension in the setting of septic shock and anemia. * Appropriately resuscitated with IV fluids. * Pressors to help with renal perfusion. * Will add urinalysis. - * Woodard in place - Strict I&Os. ENDO - * No history of diabetes or thyroid disease. * BSGs per unit protocol. ISS --> gtt per unit policy. HEME - * Pancytopenia: * Concerning in the patient with stage IV lung CA. * Unfortunately, the patient has thrombocytopenia as well as profound anemia. * She will likely benefit from immediate transfusion as her H&H continues to drop. * Orders placed for packed red blood cells. * Consider platelet transfusion, however, to this point, the patient is without active bleeding. ID - * Severe sepsis with septic shock: * Likely secondary to cellulitis to the LEFT-sided chest wall. * Currently covered with ertapenem and vancomycin. * Lactate trending up. * Procalcitonin greater than 18. * Cultures to be obtained from pleural fluid as well. LINES/IV ACCESS - * PIVs x1 * LEFT IJ CVL * RIGHT radial arterial line * Woodard catheter DVT PROPHYLAXIS - * Hold secondary to profound anemia. * SCDs CODE STATUS - * Patient was admitted under full CODE STATUS. Per conversation with hospitalist, this was in conversation with the patient as well as her son at bedside at the time of admission. In conversation upon arrival in the ICU, I did discuss management as well as need for invasive lines including central line and arterial lines as well as possible need for intubation. Patient consents to this point. Patient is profoundly weak and even has trouble completing full sentences secondary to weakness. She has no focal neurological deficits. She is awake and alert otherwise. Unfortunately, despite aggressive management prior to arrival in the ICU, the patient is profoundly ill and in active extremities. Given her multiple presenting symptoms and laboratory findings as well as her current stage IV lung cancer diagnosis, I am generally concerned that the patient is at a nonsurvivable state. Orders placed for palliative care. Team will reach out to family regarding ongoing measures. I have personally spent 55 minutes of critical care time in the direct management of this patient. This is a life/limb threatening event. This includes time spent evaluating patient, direct bedside care, chart review, placing orders, interpretation of diagnostic studies, discussion with consultants, patient, and family members, as well as other required patient management activities. This time is exclusive of all separately billable procedures, and teaching time and separate from and in addition to any other critical care service time. Thank you for allowing us to participate in the care of this patient. Please refer to my attending physician's documentation for any further recommendations. (2) Sepsis: (3) Pancytopenia: (4) Weakness: (5) Recurrent pleural effusion on left: (6) Anemia: (7) Thrombocytopenic: (8) Lung cancer metastatic to brain: (9) Stage IV adenocarcinoma of lung: History of Present Illness Attending Physician: Samuel Cain MD History of Present Illness Patient is a 65-year-old female with a significant past medical history of stage IV adenocarcinoma of the lung originally diagnosed in 2013. She is status post LEFT upper lobectomy. She has had recurrence since 2017. The patient also has a significant past medical history of breast cancer, asthma, and trapped lung. The patient has most recently been treated with chemotherapy 2 weeks on, 2 weeks off. Her most recent treatment was this past . She reports that she has been feeling weak and tired for the last 2 weeks. Patient has a Pleurx catheter in the LEFT-sided chest. This was last drained last week. Very little drainage was obtained at that point. She has had no noted fevers or chills. No other recent sick contacts that she is aware of. Patient reports that other than feeling generally weak and fatigued, she denies any significant new complaints of pain. She does complain of some mild discomfort to the LEFT-sided chest wall. She has had redness and swelling at the LEFT-sided chest as well. Patient is extremely weak and fatigued and in active extremis and is unable to provide significant contributions to HPI. Allergies Allergy/AdvReac Type Severity Reaction Status Date / Time Cephalosporins Allergy Intermediate ITCHINESS, Verified 10/06/20 21:43 RASH Sulfa (Sulfonamide Allergy Intermediate ITCHY/RASH Verified 10/06/20 21:44 Antibiotics) TO SULFA DRUGS Home Medications Medication Instructions Recorded Confirmed Type gabapentin 600 mg PO BID 09/16/18 10/06/20 History ondansetron HCl 24 mg tablet 4 mg PO Q8H PRN tab 02/07/19 10/06/20 History immune globu G 5 gram/50 mL(10 5 gm SUBCUT .weekly ml 05/14/19 10/06/20 History %)-gly-IgA ave 46 mcg/mL injection soln levothyroxine 100 mcg PO QAM 06/25/19 10/06/20 History albuterol sulfate 2.5 mg INHALATION Q4H PRN #180 ml 07/16/20 10/06/20 Rx memantine 10 mg tablet 10 mg PO BID #60 tab 08/29/20 10/06/20 Rx apixaban [Eliquis] 5 mg PO BID 10/06/20 10/06/20 History levalbuterol tartrate 2 puff INHALATION BID PRN 10/06/20 10/06/20 History montelukast 10 mg PO HS 10/06/20 10/06/20 History Patient History Medical History Anxiety Asthma Bronchitis hx recurrent Chronic back pain Degenerative disc disease Depression Gastric cardia ulcer hx GERD (gastroesophageal reflux disease) History of acute bronchitis History of asthma History of candidiasis of mouth History of neutropenia History of sinusitis Hx of cyst of breast with aspiration/no cancer Hypothyroidism Migraine Non-small cell carcinoma of lung Obstructive sleep apnea per records/pt denies Vocal cord paralysis left side (since 2013) Surgical History H/O colonoscopy H/O tubal ligation 1978 H/O vaginal hysterectomy History of bronchoscopy x3 (2013, 2014, 2016) History of cataract surgery bilateral History of esophagogastroduodenoscopy History of lobectomy of lung JOHN (2013) History of reversal of tubal ligation late S/P bronchoscopy with biopsy (06/29/19) Navigational Bronchoscopy With Biopsy Dr. Tapia 06-29-19 S/P epidural steroid injection S/P laparotomy ruptured tubal S/P left knee arthroscopy S/P right knee arthroscopy Family History Father FHx: bladder cancer hx smoking Brother FHx: prostate cancer Sister Family history of diabetes mellitus Grandmother (Maternal) Family history of diabetes mellitus Grandmother (Paternal) Family history of diabetes mellitus Mother Stroke Other No pertinent family history Social History Smoking Status: Never smoker Second Hand Exposure: No; Hx Alcohol Use: Yes Alcohol type: wine Hx Substance Use: No Preferred Language: Cypriot Communication Ability: Effective Visual Impairment: No Limitations Hearing Ability: Normal Rn Examiner Required: No Beliefs That Will Affect Care: None Current Living Situation: Family Current Living Situation Comment: lives with son Raul current occupational status: retired Feels Safe at Home: Yes Assistive Devices: Wheelchair Review of Systems Review of Systems: All systems reviewed & are unremarkable except as noted in HPI & below Physical Exam Physical Exam: VITAL SIGNS - Vital signs and nursing notes were reviewed. GENERAL - 65-year-old ill-appearing female in active extremis. Able to answer yes/no questions and provide short answers appropriately. HEAD - NC/AT. EYES - PERRL with EOMI bilaterally. Sclera anicteric. EARS - No deformities of external structures noted on gross examination bilaterally. NOSE - Midline and without cyanosis. MOUTH/OROPHARYNX - Without perioral cyanosis. Buccal mucosa pink and dry. NECK - Spasm of the LEFT sided neck. FROM through PROM. No nuchal rigidity. LUNGS -erythema surrounding the LEFT-sided Pleurx catheter site. Tender to palpation. Diminished breath sounds to the LEFT-sided lung field. Breath sounds normal to auscultation to the RIGHT. CARDIAC - RRR with S1/S2. No murmur, rubs, or gallops appreciated. ABDOMEN - Abdominal contour flat without pulsations or visible masses. BS hypoactive. No tenderness to palpation noted. EXTREMITIES - No clubbing or peripheral cyanosis. No pretibial edema present. +3/5 radial pulses palpated throughout. NEUROLOGIC -no focal neurological deficits noted. Extreme weakness and fatigue. PSYCH - A&Ox3. Able to answer yes/no questions appropriately as well as provide short answers. She reports feeling extremely weak and tired which hinders the exam. Results & Data Results & Data ([facility]) Vital Signs (Past 12 Hours) Vital Signs Temp Pulse Pulse Resp BP BP Pulse Ox 10/07/20 06:42 123 H 20 95/58 L 95 10/07/20 06:30 122 H 20 78/53 L 95 10/07/20 06:20 36.5 C 124 H 20 67/51 L 96 10/07/20 05:29 36.4 C L 119 H 18 80/56 L 99 10/07/20 04:58 36.7 C 121 H 24 70/48 L 96 10/07/20 04:44 118 H 24 83/49 L 99 10/07/20 02:55 118 H 20 82/60 L 97 10/07/20 02:21 115 H 20 98 10/06/20 20:51 126 H 26 H 108/62 94 10/06/20 20:45 36.0 C L 68/51 L Coding Level of Care Code Critical Care 1st 30-74 mins Diagnoses Admitted to intensive care unit Z78.9 Sepsis A41.9 Pancytopenia D61.818 Weakness R53.1 Recurrent pleural effusion on left J90 Anemia D64.9 Anemia type: unspecified type Thrombocytopenic D69.6 Lung cancer metastatic to brain C34.90; C79.31 Stage IV adenocarcinoma of lung C34.90 Time Spent (min) 55 (1) Anemia Anemia type: unspecified type Qualified Code(s): D64.9 - Anemia, unspecified
--- NOTE | 2020-10-07 08:28 | XRay Report ---
XR chest 1V portable CLINICAL HISTORY: weakness, lung ca, L pleurx COMPARISON STUDY: Chest CT September 17, 2020. FINDINGS: Left basilar pleural catheter remains in place. Left pleural effusion is likely present. Ne ar complete opacification of left hemithorax is noted. This has significantly progressed since prior examination. There is no pneumothorax. There is no evidence for pulmonary edema. IMPRESSION: Near complete opacification of the left hemithorax which has progressed since prior examination. Left pleural effusion. Left basilar pleural catheter in place. ACT 112: Negative or not required by law. Electronically signed by: Brandon Ragland M.D. 10/07/2020 8:27 AM
[2020-10-07] MEDS: VASOPRESSIN 20 UNITS in 0.9 % SODIUM CHLORIDE 100 ML IV SCH ×2 (08:30→14:51)
[2020-10-07] MEDS: HYDROCORTISONE SOD 50 MG in SYRINGE 0 ML IV SCH ×3 (08:46→21:23)
[2020-10-07] MEDS ORDERED: APIXABAN 5 MG TABLET PO SCH (09:00)
[2020-10-07] MEDS ORDERED: GABAPENTIN 600 MG TAB PO SCH (09:00)
[2020-10-07] MEDS ORDERED: MEMANTINE HCL 10 MG TAB PO SCH (09:00)
[2020-10-07 09:19] LABS: Appearance Urine Cloudy (Clear); Bacteria Urine Automated Negative (Negative); Bilirubin Urine Negative (Negative); Blood Urine 1+ (Negative); Color Urine Dark Yellow; Glucose Urine UA Negative (Negative); Ketones Urine Trace (Negative); Leukocyte Esterase Urine Negative (Negative); Nitrite Urine Negative (Negative); Protein Urine Trace (Negative); Specific Gravity Urine 1.022 (1.000-1.030); Urobilinogen Urine Negative (Negative)
[2020-10-07 09:25] LABS: Glucose Pleural Fluid 36 mg/dl; LDH Pleural Fluid 898 U/L; Total Protein Pleural Fluid 3.2 g/dl
[2020-10-07 10:09] LABS: Mucus Urine Present (None Prsent)
[2020-10-07] MEDS: ALBUMIN 5% 250 ML IV SCH ×2 (10:40→11:44)
[2020-10-07] MEDS: LEVOTHYROXINE SODIUM 100 MCG TABLET PO SCH (10:41)
[2020-10-07] MEDS ORDERED: MEROPENEM CONSULT ACITVE PRN ×2 (10:47→11:15)
[2020-10-07 11:00] LABS: Appearance Pleural Fluid BLOODY; Color Pleural Fluid RED; RBC Pleural Fluid (A) 52000 /uL; Source Pleural Fluid LEFT LUNG; WBC Pleural Fluid (A) 61 /uL
[2020-10-07 11:01] LABS: Basophils, Fluid 0 %; Eosinophils, Fluid 1 %; Lymphocytes, Fluid 44 %; Mono,Macrophage,Mesothelial 35 %; Neutrophils, Fluid 20 %
[2020-10-07] MEDS: MEROPENEM 500 MG in SYRINGE 0 ML IV SCH ×2 (11:16→18:23)
[2020-10-07] MEDS: ACETAMINOPHEN 1,000 MG/100 ML VIAL IV PRN ×2 (11:16→20:27)
--- NOTE | 2020-10-07 11:16 | Electrocardiogram Report ---
Test Reason : Blood Pressure : / mmHG Vent. Rate : 114 BPM Atrial Rate : 114 BPM P-R Int : 134 ms QRS Dur : 084 ms QT Int : 300 ms P-R-T Axes : 041 049 084 degrees QTc Int : 413 ms Poor data quality, interpretation may be adversely affected Sinus tachycardia Diffuse Minor ST elevation in multiple leads (consider pericarditis) When compared with ECG of 06-MAY-2020 13:13, Vent. rate has increased BY [address] elevation in multiple leads now present Confirmed by Bernard Zimmerman ([id number]) on 10/07/2020 11:16:00 AM Referred By: REFERRED SELF Confirmed By:Bernard Zimmerman
--- NOTE | 2020-10-07 12:02 | Procedure Note ---
Procedure Note Date of Service October 07, 2020 Note Patient has a left pleural catheter in place. I helped the pleural catheter up to the Pleurx Vacutainer. We aspirated 850 mL of pleural fluid. Initially the fluid was dark sandi-colored and then transition to more serosanguineous effusi on. The pleural fluid appears to be a very significant exudate. She does have a known history of a malignant effusion. There is induration and cellulitis noted around the Pleurx catheter site. I suspect that she likely has a complicated parapneumonic effusion with local cellulitis. Coding CPT Codes Pulmonary/Thoracic - Pulmonary and Thoracic: 23187 Pleural drainage w/imaging ([id number]) [facility] [place] Pulmonary/Thoracic Procedure 4: Pulmonary and Thoracic: 69732 Pleural drainage w/imaging
--- NOTE | 2020-10-07 12:38 | XRay Report ---
XR chest 1V portable CLINICAL HISTORY: Chest x-ray status post pleural drainage. COMPARISON STUDY: 10/07/2020 FINDINGS: The left hemithorax remains nearly completely opacified. There are surgical clips in the le ft hilar region. There is a left internal jugular central venous catheter with its tip projected over the left brachiocephalic vein. A left basilar pleural catheter is again evident. The right lung abel ins essentially clear.[ IMPRESSION: 1. No significant change in position of the left internal jugular central venous catheter 2. Persistent near complete opacification of the left hemithorax. ACT 112: Negative or not required by law. Electronically signed by: Bill Damon M.D. 10/07/2020 12:37 PM
[2020-10-07 12:43] LABS: Hematocrit (blood only) 22.1 % (37-47); Hemoglobin 7.5 g/dL (12.0-16.0); Mean Corpuscular Hemoglobin 28.2 pg (25-34); Mean Corpuscular Hgb Conc 33.9 g/dL (32-36); Mean Corpuscular Volume 83.1 fL (80-100); Mean Platelet Volume 10.7 fL (7.4-10.4); Platelet Count 34 K/uL (130-400); RDW Coefficient of Variation 17.4 % (11.5-14.5); RDW Standard Deviation 53.4 fL (36.4-46.3); Red Blood Count 2.66 M/uL (4.2-5.4); White Blood Count 0.03 K/uL (4.8-10.8)
[2020-10-07] MEDS ORDERED: CASPOFUNGIN 70 MG in SODIUM CHLORIDE 0.9% 250 ML IV ONE (13:30)
[2020-10-07 16:22] LABS: BUN Creatinine Ratio 41.8 (10-20); Calcium 7.5 mg/dl (8.5-10.1); Creatinine Clr Calc Pharmacy 43.9 ml/min; Est GFR (African American) 57.8 ml/min; Est GFR (Non-African American) 49.9 ml/min; Potassium 4.8 mmol/L (3.5-5.1)
[2020-10-07 16:27] LABS: Troponin I 0.015 ng/ml (0-0.045)
--- NOTE | 2020-10-07 16:43 | Electrocardiogram Report ---
Test Reason : Blood Pressure : / mmHG Vent. Rate : 093 BPM Atrial Rate : 093 BPM P-R Int : 142 ms QRS Dur : 084 ms QT Int : 322 ms P-R-T Axes : 062 057 078 degrees QTc Int : 400 ms Normal sinus rhythm Low voltage QRS Global ST elevations, consider pericarditis Abnormal ECG When compared with ECG of 06-OCT-2020 22:15, No significant change was found Confirmed by Bernard Zimmerman ([id number]) on 10/07/2020 4:43:20 PM Referred By: REFERRED SELF Confirmed By:Bernard Zimmerman
[2020-10-07] MEDS ORDERED: INSULIN PROTOCOL GOAL RANGE ONE (17:18)
[2020-10-07] MEDS ORDERED: SEVERE STRESS LEVEL ONE (17:18)
--- NOTE | 2020-10-07 17:26 | Communication Note ---
Date of Service: October 07, 2020 I had a lengthy discussion with the patient's son and the patient as well. We discussed her overall prognosis and CODE STATUS. I reiterated to the family t hat she has stage IV lung cancer and her prognosis is very poor given the presence of septic shock. The patient was able to tell me that she would like to be a DNR and a DNI in the event that she would a suffer cardiac arrest or respiratory arrest. She told me this in the presence of both of her sons. Possible sources of septic shock includes cellulitis in the left chest related to the Pleurx catheter. She is currently on meropenem and caspofungin. The family was requesting the addition of high-dose vitamins including vitamin A and D. I indicated to the family that there is minimal evidence to suggest that high-dose vitamins A and D are indicated in sepsis and there could be potential complications with such a regimen. Coding Level of Care Code None
[2020-10-07] MEDS ORDERED: CALCIUM GLUCONATE 10% 1,000 MG in SODIUM CHLORIDE 0.9% 50 ML IV STA (17:29)
--- NOTE | 2020-10-07 18:11 | Hospitalist Progress Note ---
Date of Service October 07, 2020 Assessment & Plan Admission and Anticipated Discharge Date Admission Date: October 07, 2020 Subjective Patient is a 65-year-old female, with a lung adenocarcinoma stage IV, admitted this morning with sepsis and neutropenia, and requiring admission to ICU d/t hypotension. Sepsis possibly secondary to left chest cellulitis. Currently laying in bed, in no acute distress, however due to hypotension on Levophed and vasopressin. She is getting blood transfusion at this time. Her voice is very weak, however she is able to answer simple questions. She is able to move her fingers, hold my hand, however she is extremely weak. Discussed with ICU team, plan for further discussion with family, and palliative medicine is also consulted, given [facility] MD Results & Data Results & Data ([facility]) Vital Signs (Past 12 Hours) Vital Signs Temp Pulse Pulse Resp BP BP Pulse Ox 10/07/20 18:01 37 C 105 H 118/79 95 10/07/20 18:00 105 H 95 10/07/20 17:00 37.1 C 99 H 100/66 95 10/07/20 16:30 93 H 96 10/07/20 16:15 93 H 97 10/07/20 16:00 95 H 117/76 95 10/07/20 15:45 92 H 96 10/07/20 15:30 94 H 95 10/07/20 15:15 94 H 96 10/07/20 15:01 93 H 95 10/07/20 15:00 94 H 96/66 L 95 10/07/20 14:00 97 H 87/62 L 94 10/07/20 13:42 37.6 C H 10/07/20 13:01 105 H 96 10/07/20 13:00 37.9 C H 105 H 99/64 L 96 10/07/20 12:45 38.2 C H 105 H 96 10/07/20 12:30 105 H 98 10/07/20 12:15 38.3 C H 106 H 96 10/07/20 12:00 38.4 C H 108 H 77/59 L 96 10/07/20 11:45 38.4 C H 110 H 95 10/07/20 11:30 38.2 C H 113 H 96 10/07/20 11:00 117 H 82/62 L 95 10/07/20 10:54 38.2 C H 10/07/20 10:30 118 H 95 10/07/20 10:29 37.9 C H 117 H 22 103/51 L 95 10/07/20 10:10 121 H 97 10/07/20 10:01 122 H 95 10/07/20 10:00 123 H 92/64 L 94 10/07/20 09:50 120 H 95 10/07/20 09:40 120 H 96 10/07/20 09:30 122 H 94 10/07/20 09:27 37.4 C 10/07/20 09:25 37.4 C 122 H 22 93/43 L 96 10/07/20 09:20 123 H 95 10/07/20 09:10 123 H 95 10/07/20 09:00 124 H 87/46 L 95 10/07/20 08:57 37.3 C 122 H 20 103/56 L 10/07/20 08:55 37.3 C 124 H 22 103/45 L 94 10/07/20 08:50 126 H 94 10/07/20 08:41 126 H 95 10/07/20 08:40 37.3 C 125 H 22 100/63 95 10/07/20 08:35 127 H 87/48 L 90 10/07/20 08:31 126 H 91 10/07/20 08:30 127 H 94/45 L 91 10/07/20 08:25 127 H 85/56 L 92 10/07/20 08:24 37.4 C 127 H 22 87/50 L 92 10/07/20 08:21 127 H 92 10/07/20 08:20 126 H 87/50 L 91 10/07/20 08:15 125 H 86/45 L 82 L 10/07/20 08:11 125 H 86 L 10/07/20 08:10 126 H 82/49 L 89 L 10/07/20 08:05 126 H 90/41 L 82 L 10/07/20 08:00 37.6 C H 126 H 82/58 L 92 10/07/20 07:55 124 H 91/59 L 91 10/07/20 07:51 123 H 95 10/07/20 07:50 122 H 88/45 L 96 10/07/20 07:46 122 H 66/33 L 06/01/21 07:45 124 H 10/07/20 07:41 121 H 10/07/20 07:39 123 H 74/43 L 10/07/20 07:35 122 H 79/46 L 10/07/20 07:31 124 H 92 10/07/20 07:30 124 H 76/43 L 89 L 10/07/20 07:25 124 H 68/42 L 87 L 10/07/20 07:21 125 H 97 10/07/20 07:20 125 H 86/49 L 95 10/07/20 07:15 124 H 73/47 L 92 10/07/20 07:11 125 H 98 10/07/20 07:10 124 H 94/44 L 80 L 10/07/20 07:05 124 H 93/48 L 97 10/07/20 07:01 121 H 95 10/07/20 07:00 120 H 81/48 L 95 10/07/20 06:55 121 H 81/51 L 93 10/07/20 06:51 123 H 98 10/07/20 06:50 122 H 88/53 L 92 10/07/20 06:45 122 H 90/48 L 98 10/07/20 06:42 123 H 20 95/58 L 95 10/07/20 06:40 122 H 97 10/07/20 06:31 122 H 95/58 L 97 10/07/20 06:30 122 H 122 H 20 78/53 L 95 10/07/20 06:26 123 H 78/53 L 94 10/07/20 06:22 123 H 67/51 L 98 10/07/20 06:20 36.5 C 124 H 20 67/51 L 96 Pulse Ox 10/07/20 18:01 10/07/20 18:00 10/07/20 17:00 10/07/20 16:30 10/07/20 16:15 10/07/20 16:00 10/07/20 15:45 10/07/20 15:30 10/07/20 15:15 10/07/20 15:01 10/07/20 15:00 10/07/20 14:00 10/07/20 13:42 10/07/20 13:01 10/07/20 13:00 10/07/20 12:45 10/07/20 12:30 10/07/20 12:15 10/07/20 12:00 10/07/20 11:45 10/07/20 11:30 10/07/20 11:00 10/07/20 10:54 10/07/20 10:30 10/07/20 10:29 10/07/20 10:10 10/07/20 10:01 10/07/20 10:00 10/07/20 09:50 10/07/20 09:40 10/07/20 09:30 10/07/20 09:27 10/07/20 09:25 10/07/20 09:20 10/07/20 09:10 10/07/20 09:00 10/07/20 08:57 10/07/20 08:55 10/07/20 08:50 10/07/20 08:41 10/07/20 08:40 10/07/20 08:35 10/07/20 08:31 10/07/20 08:30 10/07/20 08:25 10/07/20 08:24 10/07/20 08:21 10/07/20 08:20 10/07/20 08:15 10/07/20 08:11 10/07/20 08:10 10/07/20 08:05 10/07/20 08:00 10/07/20 07:55 10/07/20 07:51 10/07/20 07:50 10/07/20 07:46 10/07/20 07:45 93 10/07/20 07:41 10/07/20 07:39 10/07/20 07:35 10/07/20 07:31 10/07/20 07:30 10/07/20 07:25 10/07/20 07:21 10/07/20 07:20 10/07/20 07:15 10/07/20 07:11 10/07/20 07:10 10/07/20 07:05 10/07/20 07:01 10/07/20 07:00 10/07/20 06:55 10/07/20 06:51 10/07/20 06:50 10/07/20 06:45 10/07/20 06:42 10/07/20 06:40 10/07/20 06:31 10/07/20 06:30 10/07/20 06:26 10/07/20 06:22 10/07/20 06:20
[2020-10-07] MEDS: ASCORBIC ACID 1,500 MG, THIAMINE HCL 100 MG in 0.9 % SODIUM CHLORIDE 100 ML IV SCH ×2 (18:23→22:57)
[2020-10-07] MEDS: INSULIN REGULAR 250 UNITS in SODIUM CHLORIDE 0.9% 247.5 ML IV SCH (18:24)
[2020-10-07] MEDS ORDERED: NovoLIN-R BOLUS FROM BAG IV ONE (18:45)
[2020-10-07] MEDS ORDERED: MONTELUKAST SODIUM 10 MG TABLET PO SCH (21:00)
[2020-10-07] MEDS: INSULIN ASPART 100 UNITS/ML 3 ML PEN SC SCH (21:23)
[2020-10-07 21:41] LABS: Hematocrit (blood only) 22.3 % (37-47); Hemoglobin 7.8 g/dL (12.0-16.0)
[2020-10-07 21:59] LABS: BUN Creatinine Ratio 40.6 (10-20); Calcium 8.1 mg/dl (8.5-10.1); Creatinine Clr Calc Pharmacy 38.8 ml/min; Est GFR (African American) 49.9 ml/min; Phosphorus 4.4 mg/dl (2.5-4.9); Potassium 4.5 mmol/L (3.5-5.1)
[2020-10-07] MEDS ORDERED: NORMOSOL-R 1,000 ML IV SCH (22:30)
[2020-10-07] MEDS ORDERED: Nursing to Pharmacy Communication SCH (22:45)
[2020-10-08] MEDS: HYDROCORTISONE SOD 50 MG in SYRINGE 0 ML IV SCH ×4 (01:52→20:19)
[2020-10-08] MEDS ORDERED: ERTAPENEM SODIUM 1,000 MG in SODIUM CHLORIDE 0.9% 50 ML IV SCH (02:00)
[2020-10-08] MEDS: INSULIN REGULAR 250 UNITS in SODIUM CHLORIDE 0.9% 247.5 ML IV SCH (02:10)
[2020-10-08] MEDS: MEROPENEM 500 MG in SYRINGE 0 ML IV SCH ×3 (04:01→18:00)
[2020-10-08] MEDS: NOREPINEPHRINE/D5W 8 MG/508 ML BAG IV SCH ×3 (04:01→20:19)
[2020-10-08] MEDS: ACETAMINOPHEN 1,000 MG/100 ML VIAL IV PRN (04:46)
[2020-10-08] MEDS: LEVOTHYROXINE SODIUM 100 MCG TABLET PO SCH (04:47)
[2020-10-08] MEDS: ASCORBIC ACID 1,500 MG, THIAMINE HCL 100 MG in 0.9 % SODIUM CHLORIDE 100 ML IV SCH ×4 (04:47→23:48)
[2020-10-08 05:43] LABS: Base Excess VBG -7.5 mEq/L; pH VBG 7.38 (7.36-7.41)
[2020-10-08 05:48] LABS: INR 1.5 (0.9-1.1); Prothrombin Time 14.5 Seconds (9.0-12.0)
[2020-10-08 06:00] LABS: Hemoglobin 7.7 g/dL (12.0-16.0); Mean Corpuscular Hemoglobin 28.4 pg (25-34); Mean Corpuscular Volume 81.2 fL (80-100); Platelet Count 21 K/uL (130-400); RDW Coefficient of Variation 18.9 % (11.5-14.5); Red Blood Count 2.71 M/uL (4.2-5.4); White Blood Count 0.09 K/uL (4.8-10.8)
[2020-10-08 06:01] LABS: Platelet Estimate SIGNIFIC DECREASED (Normal)
[2020-10-08 06:08] LABS: Albumin Level 1.5 gm/dl (3.4-5.0); BUN Creatinine Ratio 36.5 (10-20); Bilirubin Direct 0.6 mg/dl (0-0.2); Calcium 7.6 mg/dl (8.5-10.1); Creatinine Clr Calc Pharmacy 35.8 ml/min; Est GFR (African American) 45.2 ml/min; Magnesium 2.1 mg/dl (1.8-2.4); Potassium 4.7 mmol/L (3.5-5.1)
[2020-10-08] MEDS ORDERED: CALCIUM CHLORIDE 10% 500 MG in SODIUM CHLORIDE 0.9% 50 ML IV SCH (06:15)
[2020-10-08 06:19] LABS: Bilirubin,Total 0.9 mg/dl (0.2-1); Phosphorus 4.8 mg/dl (2.5-4.9); Total Protein 4.6 gm/dl (6.4-8.2)
[2020-10-08] MEDS: INSULIN ASPART 100 UNITS/ML 3 ML PEN SC SCH ×3 (08:30→17:56)
[2020-10-08] MEDS: VASOPRESSIN 20 UNITS in 0.9 % SODIUM CHLORIDE 100 ML IV SCH ×2 (08:31→16:16)
--- NOTE | 2020-10-08 08:36 | Critical Care Progress Note ---
Date of Service October 08, 2020 Assessment & Plan (1) Admitted to intensive care unit: Reason Critically Ill: 65-year-old female in active extremitas with a significant past medical history of stage IV lung cancer with metastatic spread to the liver and brain admitted with sepsis from unknown source as well as pancytopenia with significant anemia. NEURO - * CAM ICU: NEGATIVE * Brain metastases: * Previously completed course of full brain radiation therapy. * Previously on oral Decadron. * No focal neurological deficits currently. CARDIAC/VASCULAR - * Hypotension: * Secondary to septic shock and possible relative adrenal insufficiency. * Continue Levophed and vasopressin. Currently on stress dose steroids. * Troponins have been negative. RESPIRATORY - * Stage IV adenocarcinoma of the LEFT-sided lung: * She has large loculated left pleural effusions and complete white out of the left lung. Pleurx drainage attempted this morning with only 100 cc of serosanguineous fluid able to be removed. GI/NUTRITION - * N.p.o. * Aspiration risk RENAL/LYTES - * SERGIO: * Likely secondary to hypovolemia and hypotension in the setting of septic shock and anemia. * Appropriately resuscitated with IV fluids. * Pressors to help with renal perfusion. - * Woodard in place - Strict I&Os. ENDO - * No history of diabetes or thyroid disease. * BSGs per unit protocol. ISS --> gtt per unit policy. * Currently on stress dose steroids. HEME - * Pancytopenia: Secondary to chemotherapy agents. * Hematology/oncology is aware and following the patient. * Thrombocytopenia worsening today likely secondary to sepsis. Holding anticoagulation at this time. ID - * Severe sepsis with septic shock: * Unclear etiology, could be related to cellulitis of the left chest wall. This appears to be improving. Parapneumonic effusion is also possible. * Continue meropenem and Caspofungin. * Cultures pending including cultures from the pleural fluid. LINES/IV ACCESS - * PIVs x1 * LEFT IJ CVL * RIGHT radial arterial line * Woodard catheter DVT PROPHYLAXIS - * Hold secondary to profound anemia. * SCDs CODE STATUS - * DNR/DNI * Palliative care on board. I have personally spent 35 minutes of critical care time in the direct management of this patient. This is a life/limb threatening event. This includes time spent evaluating patient, direct bedside care, chart review, placing orders, interpretation of diagnostic studies, discussion with consultants, patient, and family members, as well as other required patient management activities. This time is exclusive of all separately billable procedures, and teaching time and separate from and in addition to any other critical care service time. (2) Sepsis: (3) Pancytopenia: (4) Weakness: (5) Recurrent pleural effusion on left: (6) Anemia: (7) Thrombocytopenic: (8) Lung cancer metastatic to brain: (9) Stage IV adenocarcinoma of lung: Admission and Anticipated Discharge Date Admission Date: October 07, 2020 Subjective Patient seen and examined this morning. She is very lethargic. She is currently on Levophed. Vasopressin was turned off overnight. She is having some mild abdominal discomfort today. She denies any chest pain. Review of Systems Review of Systems: All systems reviewed & are unremarkable except as noted in HPI & below Physical Exam Constitutional: + ill appearing and + frail appearing ENMT: external ear and nose normal, oropharynx normal Respiratory: Diminished lung sounds on the left. No significant wheezing. Mild tachypnea. Cardiovascular: Rate/Rhythm: regular rate and regular rhythm Heart Sounds: normal S1 and normal S2 Extremities: + edema Gastrointestinal (Abdomen): Mild tenderness to palpation. No ascites. Nondistended. Musculoskeletal: Decreased strength bilaterally in the lower and upper extremities. Skin: Cellulitis noted around the left Pleurx catheter site which is improved from yesterday. Neurologic: awake; no focal motor deficits Results & Data Results & Data ([facility]) Vital Signs (Past 12 Hours) Vital Signs Temp Pulse Resp BP Pulse Ox 10/08/20 06:30 94 H 19 98 10/08/20 06:00 96 H 18 87/55 L 98 10/08/20 05:30 94 H 19 97 10/08/20 04:00 99.0 F 103 H 18 100/68 96 10/08/20 03:00 99.0 F 100 H 19 91/60 L 97 10/08/20 02:01 98.8 F 101 H 19 97 10/08/20 01:00 98.6 F 99 H 17 85/62 L 97 10/08/20 00:37 98.4 F 100 H 18 96/60 L 97 10/08/20 00:00 98.4 F 101 H 22 93/68 L 97 10/07/20 22:52 102 H 10/07/20 22:00 97.9 F 103 H 25 H 97/67 L 97 10/07/20 21:00 97.9 F 97 H 17 85/59 L 97 vital signs, labs and imaging reviewed. Coding Level of Care Code Critical Care 1st 30-74 mins Diagnoses Admitted to intensive care unit Z78.9 Sepsis A41.9 Pancytopenia D61.818 Weakness R53.1 Recurrent pleural effusion on left J90 Anemia D64.9 Anemia type: unspecified type Thrombocytopenic D69.6 Lung cancer metastatic to brain C34.90; C79.31 Stage IV adenocarcinoma of lung C34.90 Time Spent (min) 35 (1) Anemia Anemia type: unspecified type Qualified Code(s): D64.9 - Anemia, unspecified
[2020-10-08] MEDS ORDERED: FUROSEMIDE 20 MG in SYRINGE 0 ML IV SCH (10:15)
[2020-10-08] MEDS ORDERED: DEXTROSE 50% 50 ML SYRINGE IV PRN (10:30)
[2020-10-08] MEDS ORDERED: CARBOHYDRATES FOR HYPOGLYCEMIA PO PRN (10:30)
[2020-10-08] MEDS ORDERED: GLUCAGON FOR INJ 1 MG VIAL IM PRN (10:30)
[2020-10-08] MEDS ORDERED: GLUCOSE 40% GEL 15 GM TUBE PO PRN (10:30)
[2020-10-08] MEDS ORDERED: GLUCOSE 10 TABS/TUBE PO PRN (10:30)
--- NOTE | 2020-10-08 11:00 | Consultation Report ---
DATE OF CONSULTATION: 10/08/2020 MEDICAL ONCOLOGY CONSULTATION REASON FOR CONSULTATION: A 65-year-old female patient with metastatic nonsmall cell lung cancer, admitted for general clinical decline. HISTORY OF PRESENT ILLNESS: Angle Cedeno is a pleasant but unfortunate 65-year-old female patient well known to [facility], currently under my care with end-stage metastatic nonsmall cell lung cancer. The patient is entering her seventh year of the fight, originally diagnosed in 12/2013, has been heavily pretreated including most recently a single agent gemcitabine last administered on 10/02/2020. 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 She also has an indwelling PleurX catheter because of recurrent malignant pleural effusions. Again, she received her last chemotherapy on 10/02. Not surprisingly presented in significant clinical decline including pancytopenia. The patient apparently was upstairs initially; however, her blood pressure dropped necessitating transfer to the ICU where she was started on vasopressors. Apparently, she has 2 children, one of which is the power of commercial real estate attorney for medical decision making and has decided Angle should be a DNR/DNI. Based on her past history and recent clinical events, I believe this decision is reasonable. Angle unfortunately is minimally verbal at bedside and therefore, review of systems cannot be obtained. I have been asked to see her to render an opinion on further therapeutics moving forward. 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 PAST SURGICAL HISTORY: Includes colonoscopy, EGD, laryngoscopy, vocal cord injection, ligation of oviducts, cataract surgery, meniscal repair and vaginal hysterectomy. MEDICATIONS PRIOR TO ADMISSION: Albuterol 2.5 mg inhaled q.4 hours, Eliquis 5 mg p.o. b.i.d., gabapentin 600 mg p.o. b.i.d., immunoglobulin subcutaneous weekly, levalbuterol 2 puffs inhaled b.i.d., levothyroxine 100 mcg p.o. q.a.m., memantine 10 mg p.o. b.i.d., montelukast 10 mg p.o. at bedtime, Zofran 4 mg p.o. q.8 hours p.r.n. FAMILY HISTORY: Mother suffered from asthma, hypertension and stroke as well as hypothyroidism. Father suffered with bladder cancer, hypertension. Sister with history of pernicious anemia and diabetes. Maternal and paternal grandmothers also suffered from diabetes. SOCIAL HISTORY: The patient is , living with her son, negative for cigarettes. Rare social alcohol, negative for illicit drug use. REVIEW OF SYSTEMS: Unobtainable because of the patient's mental status. PHYSICAL EXAMINATION: GENERAL: Gravely ill-appearing 65-year-old female, minimally verbal, in no apparent distress. VITAL SIGNS: Temperature 37.2, pulse 94, respiratory rate 19, blood pressure 87/55. SKIN: Without rash or lesion. HEENT: Head is atraumatic, normocephalic. Eyes do not track spontaneously. Nares patent without rhinorrhea or discharge. Throat is clear. Mucous membranes are dry. NECK: Supple. HEART: Tachy, but regular. LUNGS: Distant breath sounds. Left side very little breath sounds heard. ABDOMEN: Soft, nontender, nondistended. EXTREMITIES: Trace to 1+ peripheral edema in bilateral lower extremities. NEUROLOGIC: She is awake and sedate. LABORATORY DATA: WBC count 90, hemoglobin 7.7, platelet count 21,000. PT 14.5 seconds, INR 1.5. Sodium 126, potassium 4.7, chloride 96, carbon dioxide 18, creatinine 1.41, BUN 51, albumin 1.5. Procalcitonin 24.25. RADIOGRAPHIC DATA: Chest x-ray done at bedside this morning, left lung almost completely obliterated. IMPRESSION: 1. General clinical decline. 2. Hypoxia. 3. Malignant pleural effusion. 4. Metastatic nonsmall cell lung cancer (end-stage). 5. Recent pulmonary embolism. 6. Hyponatremia. 7. Acute renal injury. 8. Pancytopenia attributable to chemotherapeutic effect. PLAN: I visited with Angle at bedside. She is probably a day or two away from passing on. She apparently became hypotensive on the medical floor, necessitating transfer to the ICU. Vasopressors were started. She remains without mechanical ventilation; however, receiving oxygen via nasal cannula. The patient was minimally verbal. According to nursing, the palliative team has visited with Angle and family members. Her one son is the medical power of commercial real estate attorney and has decided appropriately to make Angle DNR/DNI. The patient has battled her disease for close to 7 years, which is pretty decent survival with this diagnosis. She recently developed brain and brainstem mets. Apparently wanted to continue fighting on and thus was given a single agent gemcitabine as a salvage. Generally speaking, this agent is not terribly myelosuppressive, which suggests with Angle's heavy pretreatment, her bone marrow stroma remains fragile and thus the prospect of recovery from a hematologic perspective is bleak. Agree with comfort measures moving forward. If there are any questions or concerns, please feel free to contact me at any time. MTDD
--- NOTE | 2020-10-08 11:20 | CT Scan Report ---
CT chest diagnostic wo con CLINICAL HISTORY: possible empyema COMPARISON STUDY: 09/17/2020 CT DOSE: 0.00 mGy.cm TECHNIQUE: CT of the thorax was performed from the thoracic inlet to the lung bases. Images are revi ewed in the axial, sagittal, and coronal planes. IV contrast was not administered for this examinatio n. A dose lowering technique was utilized adhering to the principles of ALARA. FINDINGS: Thyroid: Minimal thyroid tissue is identified. Thoracic aorta: The thoracic aorta is normal in course and caliber, noting standard 3 vessel arch helena yevgeniy. Heart: The heart is normal in size. There is trace pericardial fluid. Lungs and pleural spaces: There is near complete opacification of the left hemithorax. There is a com plex left pleural effusion with debris. The underlying left lung is atelectatic/consolidated. Areas o f lung necrosis/mass not excluded. Evaluation limited due to the lack of intravenous contrast. There are postsurgical changes of left upper lobectomy. There are dependent atelectatic changes within the right lung. There is stable right middle lobe nodularity, likely infectious/postinfectious. There is a small right pleural effusion. Mediastinum: There is no evidence of pathologic mediastinal lymphadenopathy Batsheva: There is no evidence of pathologic hilar adenopathy given the limitations of a noncontrast stud y Axilla: Left axillary lymph nodes are the upper limits of normal in size. Upper abdomen: Multiple hypodense hepatic lesions remain stable. Skeletal structures: There are no lytic or blastic osseous lesions. IMPRESSION: 1. Study limited due to the lack of intravenous contrast 2. Postsurgical changes of left upper lobectomy 3. Near complete opacification of the left hemithorax. This is secondary to complex left pleural effu clinton with nonspecific nodular pleural opacities. There is underlying atelectasis/consolidation of the left lower lobe with areas of possible mass/necrosis. 4. Interval development of a small left pleural effusion 5. Prominent nonspecific left axillary lymph nodes 6. Stable right middle lobe nodularity 7. Stable hypodense hepatic lesions ACT 112: Negative or not required by law. Electronically signed by: Bill Damon M.D. 10/08/2020 11:19 AM
--- NOTE | 2020-10-08 11:22 | XRay Report ---
XR chest 1V portable CLINICAL HISTORY: f/u COMPARISON STUDY: October 07, 2020 FINDINGS: No pneumothorax. Redemonstration of near complete opacification of the left hemithorax associated with silhouetting o f the left hemidiaphragm. Few focal lucencies within mid aspect of the left lung are again seen and u nchanged since prior. No large infiltrates or consolidative lesions in the right lung. Cardiomediastinal silhouette is stable and obscured on the left. Tracheal air column is midline. No significant pulmonary vascular congestion.. Osseous structures: Mild degenerative changes of the spine. Stable position of left-sided jugular central line. Stable position of left-sided drainage catheter projecting to the anatomical region of the left lower chest. IMPRESSION: 1. Redemonstration of near complete opacification of the left hemithorax. 2. Support apparatus as above. ACT 112: Negative or not required by law. The above report was generated using voice recognition software. It may contain grammatical, syntax o r spelling errors. Electronically signed by: Vi Vergara DO 10/08/2020 11:21 AM
[2020-10-08] MEDS: LINEZOLID 600 MG/300 ML BAG IV SCH ×2 (11:43→20:19)
--- NOTE | 2020-10-08 13:53 | Palliative Care Consultation ---
Date of Consultation October 08, 2020 Assessment & Plan (1) Palliative care encounter: Ms. Cedeno is a 65 year old female who presented to the [facility] with hypotension, lethargy and sepsis. She has stage IV lung cancer with mets to the liver and brain. She has a pleur-X catheter in place and appears to have cellulitis around the site of insertion. She has additional PMH that include: asthma, pneumonia, metastatic ynv-xqpeu-jvpm lung cancer, malignant pleural effusion s/p PleurX catheter insertion, PUD, and depression. The patient was initially diagnosed with [id number] lung cancer in 2013 and is a patient of Dr. Diaz. She underwent a JOHN lobectomy in 2013 and proceeded with 4 cycles of chemotherapy combination treatment with Carboplatin and Taxol. In July of 2020, a brain MRI showed metastatic spread of her disease. She is currently in the ICU and on vasoactive pressors. Palliative Medicine was consulted to assist with goals of care with the family. I talked with the patient. She was able to open her eyes and was able to talk softly and answer some questions. I did ask her what was meaningful to her and she said "getting better". I talked with her about if she could not get better if her thoughts would change. She stated that she would want to be comfortable w hile dying, but stated "I am not giving up, I will fight". I did express that sometimes our brain wants to do something that our body may have other plans. I talked with Marcus and Raul at length on the phone separately. All questions answered between both of them. Marshal seems more understanding about the complexity and extent of her mothers illness. Raul was very focused on the 'numbers' instead of the big picture. We went over all of her diagnostics and plt numbers post transfusion. We discussed the possibility of removing the pleur-x catheter as it could be source of infection. Both sons are in agreement to this. Raul said that he is not giving up hope yet. I set expectation that we can continue care over the next few days and continue to see how she tolerates treatment. We talked about the risk vs benefit of continue inotropic support and what the complications are of continuing treatment. Confirmed that patient is a DNR/DNI in the event of cardiac or respiratory arrest. For now, continue aggressive treatment and palliative medicine will continue to assist patient and her sons with goals of care conversations. (2) Sepsis: (3) Weakness: (4) Lung cancer metastatic to brain: (5) Anemia: Anemia type: unspecified type Qualified Code(s): D64.9 - Anemia, unspecified History of Present Illness Reason for Consultation: Goals of care Requesting Physician: Azar Rodriguez PA-C Attending Physician: Pedro Laughlin MD History of Present Illness Ms. Cedeno is a 65 year old female who presented to the [facility] with hypotension, lethargy and sepsis. She has stage IV lung cancer with mets to the liver and brain. She has a pleur-X catheter in place and appears to have cellulitis around the site of insertion. She has additional PMH that include: asthma, pneumonia, metastatic [id number]-xoat lung cancer, malignant pleural effusion s/p PleurX catheter insertion, PUD, and depression. The patient was initially diagnosed with bhx-jybzi-muqh lung cancer in 2013 and is a patient of Dr. Diaz. She underwent a JOHN lobectomy in 2013 and proceeded with 4 cycles of chemotherapy combination treatment with Carboplatin and Taxol. In July of 2020, a brain MRI showed metastatic spread of her disease. She is currently in the ICU and on vasoactive pressors. Palliative Medicine was consulted to assist with goals of care with the family. Please see A/P for further details. Thanks for involving us with this unfortunate individual. Allergies Allergy/AdvReac Type Severity Reaction Status Date / Time Cephalosporins Allergy Intermediate ITCHINESS, Verified 10/06/20 21:43 RASH Sulfa (Sulfonamide Allergy Intermediate ITCHY/RASH Verified 10/06/20 21:44 Antibiotics) TO SULFA DRUGS Home Medications Medication Instructions Recorded Confirmed Type gabapentin 600 mg PO BID 09/16/18 10/06/20 History ondansetron HCl 24 mg tablet 4 mg PO Q8H PRN tab 02/07/19 10/06/20 History immune globu G 5 gram/50 mL(10 5 gm SUBCUT .weekly ml 05/14/19 10/06/20 History %)-gly-IgA ave 46 mcg/mL injection soln levothyroxine 100 mcg PO QAM 06/25/19 10/06/20 History albuterol sulfate 2.5 mg INHALATION Q4H PRN #180 ml 07/16/20 10/06/20 Rx memantine 10 mg tablet 10 mg PO BID #60 tab 08/29/20 10/06/20 Rx apixaban [Eliquis] 5 mg PO BID 10/06/20 10/06/20 History levalbuterol tartrate 2 puff INHALATION BID PRN 10/06/20 10/06/20 History montelukast 10 mg PO HS 10/06/20 10/06/20 History Patient History Medical History (Updated 10/08/20 @ 15:02 by BENNIE Moura) Anxiety Asthma Bronchitis hx recurrent Chronic back pain Degenerative disc disease Depression Gastric cardia ulcer hx GERD (gastroesophageal reflux disease) History of acute bronchitis History of asthma History of candidiasis of mouth History of neutropenia History of sinusitis Hx of cyst of breast with aspiration/no cancer Hypothyroidism Migraine Non-small cell carcinoma of lung Obstructive sleep apnea per records/pt denies Palliative care encounter Vocal cord paralysis left side (since 2013) Surgical History H/O colonoscopy H/O tubal ligation 1978 H/O vaginal hysterectomy History of bronchoscopy x3 (2013, 2014, 2016) History of cataract surgery bilateral History of esophagogastroduodenoscopy History of lobectomy of lung JOHN (2013) History of reversal of tubal ligation late S/P bronchoscopy with biopsy (06/29/19) Navigational Bronchoscopy With Biopsy Dr. Tapia 06-29-19 S/P epidural steroid injection S/P laparotomy ruptured tubal S/P left knee arthroscopy S/P right knee arthroscopy Family History Father FHx: bladder cancer hx smoking Brother FHx: prostate cancer Sister Family history of diabetes mellitus Grandmother (Maternal) Family history of diabetes mellitus Grandmother (Paternal) Family history of diabetes mellitus Mother Stroke Other No pertinent family history Social History Smoking Status: Never smoker Second Hand Exposure: No; Hx Alcohol Use: Yes Alcohol type: wine Hx Substance Use: No Preferred Language: Ghanaian Communication Ability: Effective Visual Impairment: No Limitations Hearing Ability: Normal Rrt Required: No Beliefs That Will Affect Care: None Current Living Situation: Family Current Living Situation Comment: lives with son Raul current occupational status: retired Feels Safe at Home: Yes Assistive Devices: Oxygen - Continuous Review of Systems Review of Systems: [place] System Assessment Scale: Pain: 1/3 Anxiety: 0/3 Shortness of Breath: 0/3 Tiredness: 2/3 Lack of Appetite: 1/3 Palliative Performance Scale: 20% Physical Exam Constitutional: + ill appearing and + frail appearing ENMT: Nose: + dry nasal mucous membranes Respiratory: normal respiratory effort, lungs clear to auscultation + cough (weak) Auscultation: + diminished lung sounds pleurX catheter in place Cardiovascular: Rate/Rhythm: regular rate and regular rhythm Heart Sounds: normal S1 and normal S2 Extremities: normal capillary refill; no edema Gastrointestinal (Abdomen): Percussion/Palpation: + abdomen tender Skin: no rashes, warm and dry Psychiatric: A+Ox3, euthymic affect Insight: + limited insight Judgement: + limited judgement Results & Data ([facility]) Vital Signs (Past 12 Hours) Vital Signs Temp Pulse Pulse Resp BP BP BP 10/08/20 13:08 36.4 C L 84 20 97/55 L 10/08/20 12:38 36.2 C L 84 20 99/54 L 10/08/20 12:23 36.4 C L 87 20 99/57 L 10/08/20 12:06 36.4 C L 92 H 20 91/58 L 10/08/20 11:34 91 H 21 78/64 L 10/08/20 11:33 93 H 31 H 76/56 L 10/08/20 11:31 88 15 78/54 L 10/08/20 11:30 88 21 77/56 L 10/08/20 11:24 87 22 69/51 L 10/08/20 11:06 91 H 19 10/08/20 10:30 93 H 21 93/53 L 10/08/20 10:23 95 H 20 92/66 L 10/08/20 10:00 90 23 90/57 L 10/08/20 09:30 89 18 10/08/20 09:00 92 H 19 99/67 L 10/08/20 08:30 97 H 19 10/08/20 08:01 99 H 19 10/08/20 08:00 36.4 C L 101 H 99 H 23 112/85 106/60 106/62 10/08/20 07:30 100 H 21 10/08/20 07:01 97 H 17 10/08/20 07:00 95 H 16 106/67 10/08/20 06:30 94 H 19 10/08/20 06:00 96 H 18 87/55 L 10/08/20 05:30 94 H 19 10/08/20 04:00 37.2 C 103 H 18 100/68 10/08/20 03:00 37.2 C 100 H 19 91/60 L 10/08/20 02:01 37.1 C 101 H 19 Pulse Ox 10/08/20 13:08 99 10/08/20 12:38 99 10/08/20 12:23 99 10/08/20 12:06 98 10/08/20 11:34 99 10/08/20 11:33 91 10/08/20 11:31 98 10/08/20 11:30 99 10/08/20 11:24 98 10/08/20 11:06 99 10/08/20 10:30 97 10/08/20 10:23 97 10/08/20 10:00 97 10/08/20 09:30 97 10/08/20 09:00 97 10/08/20 08:30 97 10/08/20 08:01 97 10/08/20 08:00 98 10/08/20 07:30 98 10/08/20 07:01 98 10/08/20 07:00 97 10/08/20 06:30 98 10/08/20 06:00 98 10/08/20 05:30 97 10/08/20 04:00 96 10/08/20 03:00 97 10/08/20 02:01 97 PG Care Time/CCT Total # of Minutes Spent Total Time Spent with Patient: Total time spent is greater than 50% in coordination of care (as documented) at patient's floor/unit and/or counseling patient: 70 minutes with > 50% of that time spent assessing the patient, discussing goals of care with the patient and family, and collaborating with IDT Coding Level of Care Code 68082 Initial Inpt Care Lvl 3 Diagnoses Palliative care encounter Z51.5 Sepsis A41.9 Weakness R53.1 Lung cancer metastatic to brain C34.90; C79.31 Anemia D64.9 Anemia type: unspecified type Time Spent (min) 70
[2020-10-08] MEDS: CASPOFUNGIN 50 MG in SODIUM CHLORIDE 0.9% 250 ML IV SCH (13:57)
[2020-10-08 14:31] LABS: Hematocrit (blood only) 18.5 % (37-47); Hemoglobin 6.8 g/dL (12.0-16.0); Mean Corpuscular Hemoglobin 29.8 pg (25-34); Mean Corpuscular Hgb Conc 36.8 g/dL (32-36); Mean Corpuscular Volume 81.1 fL (80-100); Mean Platelet Volume 9.3 fL (7.4-10.4); Platelet Count 48 K/uL (130-400); RDW Standard Deviation 56.7 fL (36.4-46.3); Red Blood Count 2.28 M/uL (4.2-5.4); White Blood Count 0.09 K/uL (4.8-10.8)
[2020-10-08] MEDS ORDERED: SODIUM CHLORIDE 0.9% 250 ML IV PRN ×2 (15:06→20:04)
--- NOTE | 2020-10-08 16:01 | Procedure Note ---
Procedure Note Date of Service October 08, 2020 Note I removed the Pleurx catheter by applying traction. Vaseline gauze was placed over the insertion site along with 4 x 4 gauze and tape. There continues to be pleural fluid oozing from the catheter insertion site. Patient tolerated the re moval of the pleural catheter well. Coding CPT Codes Pulmonary/Thoracic - Pulmonary and Thoracic: 60175 Remove lung catheter [place][id number]) [facility] [place]) Pulmonary/Thoracic Procedure 5: Pulmonary and Thoracic: 58559 Remove lung catheter
--- NOTE | 2020-10-08 16:35 | Hospitalist Progress Note ---
Date of Service October 08, 2020 Assessment & Plan (1) Severe sepsis: Septic shock Meet sepsis criteria with tachycardia, febrile, neutropenia and elevated Lactic acid Currently on pressors Vasopresin and Norepinephrine due to low BP CT chest showed near complete opacification of the left hemithorax. This is secondary to complex left pleural effusion with nonspecific nodular pleural opacities. Interval development of a small left pleural effusion Elevated lactic acid and procalcitonin Pleural cx grew staph species Currently on Meropenem and Caspofungin ID consulted Very poor prognosis Continue monitor closely in the ICU (2) Weakness: Mostly due to metastatic bkqzx-mtrk-pivj cancer with recent chemotherapy and infection from the PleurX site Poor appetite and nausea. Prognosis is very Poor No focal neuro deficit Will consult PT/OT Fall precaution Pleural effusion CT chest showed interval development of a small left pleural effusion PleurX catheter removed Pulmonary on board Pancytopenia Mostly related to chemotherapy CBC worsening with WBC 0.09, hemoglobin 6.8 , and platelets 21 Received 2 units PRBC and 1 unit platelet during the admission course so far Repeat Hgb 8.7 and plt 48 Continue monitor CBC Acute kidney Injury Likely secondary to hypovolemia and hypotension in the setting of septic shock and anemia. 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 Hypothyroidism On Synthroid. Deep venous thrombosis prophylaxis: on SCDs due to profound anemia and low platelet Admission and Anticipated Discharge Date Admission Date: October 07, 2020 Subjective Pt was seen and examined. Lying in bed very weak. Her voice is so soft today Pt said that she feels weak. discussed with her if she spoke to her sons about goal of care and her wishes. She said that she never spoke to them about her wishes Pt has a very poor prognosis and continue to require pressors to maintain his BP Review of Systems Review of Systems: All systems reviewed & are unremarkable except as noted in Subjective Physical Exam Physical Exam: General- weak, very soft voice Head- atraumatic Eyes- PERRL, EOMI, ENT- oropharynx clear Neck- supple, no JVD Lungs- Diminished BS, Pleurx cath on left side of the chest. Heart- regular rhythm; no murmur Abdomen- normal bowel sounds, soft, nontender Extremities- no calf tenderness, Neuro- alert and awake, EOMI, follow commands, moves extremities Skin- warm & dry, Stage II sacral decubitus ulcer present. Results & Data Results & Data ([facility]) Vital Signs (Past 12 Hours) Vital Signs Temp Pulse Pulse Resp BP BP BP 10/08/20 16:20 36.4 C L 85 20 99/53 L 10/08/20 14:30 81 14 78/53 L 10/08/20 14:00 84 15 72/56 L 10/08/20 13:57 36.4 C L 83 20 96/53 L 10/08/20 13:30 82 15 85/57 L 10/08/20 13:08 36.4 C L 84 20 97/55 L 10/08/20 13:01 84 16 10/08/20 13:00 86 18 83/65 L 10/08/20 12:38 36.2 C L 84 20 99/54 L 10/08/20 12:31 87 14 68/59 L 10/08/20 12:23 36.4 C L 87 20 99/57 L 10/08/20 12:06 36.4 C L 92 H 20 91/58 L 10/08/20 12:00 89 19 10/08/20 11:34 91 H 21 78/64 L 10/08/20 11:33 93 H 31 H 76/56 L 10/08/20 11:31 88 15 78/54 L 10/08/20 11:30 88 21 77/56 L 10/08/20 11:24 87 22 69/51 L 10/08/20 11:06 91 H 19 10/08/20 10:30 93 H 21 93/53 L 10/08/20 10:23 95 H 20 92/66 L 10/08/20 10:00 90 23 90/57 L 10/08/20 09:30 89 18 10/08/20 09:00 92 H 19 99/67 L 10/08/20 08:30 97 H 19 10/08/20 08:01 99 H 19 06/02/21 08:00 36.4 C L 101 H 99 H 23 112/85 106/60 106/62 10/08/20 07:30 100 H 21 10/08/20 07:01 97 H 17 10/08/20 07:00 95 H 16 106/67 10/08/20 06:30 94 H 19 10/08/20 06:00 96 H 18 87/55 L 10/08/20 05:30 94 H 19 Pulse Ox 10/08/20 16:20 97 10/08/20 14:30 100 10/08/20 14:00 100 10/08/20 13:57 99 10/08/20 13:30 100 10/08/20 13:08 99 10/08/20 13:01 99 10/08/20 13:00 99 10/08/20 12:38 99 10/08/20 12:31 100 10/08/20 12:23 99 10/08/20 12:06 98 10/08/20 12:00 98 10/08/20 11:34 99 10/08/20 11:33 91 10/08/20 11:31 98 10/08/20 11:30 99 10/08/20 11:24 98 10/08/20 11:06 99 10/08/20 10:30 97 10/08/20 10:23 97 10/08/20 10:00 97 10/08/20 09:30 97 10/08/20 09:00 97 10/08/20 08:30 97 10/08/20 08:01 97 10/08/20 08:00 98 10/08/20 07:30 98 10/08/20 07:01 98 10/08/20 07:00 97 10/08/20 06:30 98 10/08/20 06:00 98 10/08/20 05:30 97
[2020-10-08 20:38] LABS: Hematocrit (blood only) 25.2 % (37-47); Hemoglobin 8.7 g/dL (12.0-16.0)
[2020-10-08 20:56] LABS: BUN Creatinine Ratio 41.4 (10-20); Calcium 8.2 mg/dl (8.5-10.1); Creatinine Clr Calc Pharmacy 34.6 ml/min; Est GFR (African American) 43.3 ml/min; Est GFR (Non-African American) 37.4 ml/min; Potassium 4.5 mmol/L (3.5-5.1)
[2020-10-08 23:17] LABS: Phosphorus 5.9 mg/dl (2.5-4.9)
[2020-10-09] MEDS: NOREPINEPHRINE/D5W 8 MG/508 ML BAG IV SCH ×2 (00:06→15:30)
[2020-10-09] MEDS: INSULIN ASPART 100 UNITS/ML 3 ML PEN SC SCH ×4 (00:08→18:25)
[2020-10-09] MEDS: VASOPRESSIN 20 UNITS in 0.9 % SODIUM CHLORIDE 100 ML IV SCH ×2 (00:31→11:24)
[2020-10-09] MEDS: HYDROCORTISONE SOD 50 MG in SYRINGE 0 ML IV SCH ×4 (02:46→20:24)
[2020-10-09] MEDS: MEROPENEM 500 MG in SYRINGE 0 ML IV SCH ×3 (02:46→18:25)
[2020-10-09] MEDS: ASCORBIC ACID 1,500 MG, THIAMINE HCL 100 MG in 0.9 % SODIUM CHLORIDE 100 ML IV SCH ×4 (05:21→23:29)
[2020-10-09 05:34] LABS: INR 1.3 (0.9-1.1); Prothrombin Time 12.5 Seconds (9.0-12.0)
[2020-10-09 05:49] LABS: Albumin Level 1.5 gm/dl (3.4-5.0); BUN Creatinine Ratio 37.1 (10-20); Bilirubin Direct 0.4 mg/dl (0-0.2); Calcium 7.4 mg/dl (8.5-10.1); Creatinine Clr Calc Pharmacy 36.8 ml/min; Est GFR (African American) 46.8 ml/min; Est GFR (Non-African American) 40.4 ml/min; Magnesium 1.9 mg/dl (1.8-2.4); Potassium 4.2 mmol/L (3.5-5.1)
[2020-10-09 05:57] LABS: Hematocrit (blood only) 24.7 % (37-47); Hemoglobin 8.6 g/dL (12.0-16.0); Mean Corpuscular Hemoglobin 27.7 pg (25-34); Mean Corpuscular Hgb Conc 34.8 g/dL (32-36); Mean Corpuscular Volume 79.4 fL (80-100); Mean Platelet Volume 9.8 fL (7.4-10.4); Platelet Count 42 K/uL (130-400); RDW Coefficient of Variation 19.2 % (11.5-14.5); RDW Standard Deviation 56.2 fL (36.4-46.3); Red Blood Count 3.11 M/uL (4.2-5.4); White Blood Count 0.09 K/uL (4.8-10.8)
[2020-10-09] MEDS: LEVOTHYROXINE SODIUM 100 MCG TABLET PO SCH (05:58)
[2020-10-09 06:14] LABS: Bilirubin,Total 0.6 mg/dl (0.2-1); Total Protein 4.7 gm/dl (6.4-8.2)
--- NOTE | 2020-10-09 07:53 | XRay Report ---
XR chest 1V portable CLINICAL HISTORY: f/u. Lung cancer. COMPARISON STUDY: Chest radiograph and chest CT October 08, 2020. FINDINGS: A left internal jugular Jlqbnv-n-Ujmb remains in place. Near complete opacification of the left hemithorax is unchanged. A left pleural effusion is noted. There is a trace right pleural effusi on. The appearance of the chest is unchanged. IMPRESSION: No significant change in appearance of the chest. New complete opacification of the left hemithorax. ACT 112: Negative or not required by law. Electronically signed by: Brandon Ragland M.D. 10/09/2020 7:52 AM
[2020-10-09] MEDS: LINEZOLID 600 MG/300 ML BAG IV SCH ×2 (08:20→20:23)
--- NOTE | 2020-10-09 10:45 | Critical Care Progress Note ---
Date of Service October 09, 2020 Assessment & Plan (1) Admitted to intensive care unit: Reason Critically Ill: 65-year-old female in active extremitas with a significant past medical history of stage IV lung cancer with metastatic spread to the liver and brain admitted with sepsis from unknown source as well as pancytopenia with significant anemia. NEURO - * CAM ICU: NEGATIVE * Brain metastases: * Previously completed course of full brain radiation therapy. * Previously on oral Decadron. * No focal neurological deficits currently. * Very lethargic likely related to sepsis and advanced malignancy. CARDIAC/VASCULAR - * Hypotension: * Secondary to septic shock and possible relative adrenal insufficiency. * Continue Levophed and vasopressin. Currently on stress dose steroids. We are weaning Levophed down. * Troponins have been negative. RESPIRATORY - * Stage IV adenocarcinoma of the LEFT-sided lung: * She has large loculated left pleural effusions and complete white out of the left lung. * Pleurx catheter was removed due to local severe cellulitis. Staphylococcus species noted from the pleural effusion. Unclear if this represents a biofilm that was present on the Pleurx catheter or whether this is evidence of an empyema. Pleural fluid studies are difficult to interpret in the context of complex effusion related to malignancy. Risks and benefits of placing the pigtail catheter have to be considered given her overall poor prognosis and bleeding risks. Infectious disease has been consulted for telehealth for their input. GI/NUTRITION - * N.p.o. * Aspiration risk RENAL/LYTES - * SERGIO: * Likely secondary to hypovolemia and hypotension in the setting of septic shock and anemia. * Appropriately resuscitated with IV fluids. * Pressors to help with renal perfusion. * Received a dose of IV Lasix yesterday. - * Woodard in place - Strict I&Os. ENDO - * No history of diabetes or thyroid disease. * BSGs per unit protocol. ISS --> gtt per unit policy. * Currently on stress dose steroids. HEME - * Pancytopenia: Secondary to chemotherapy agents. * Appreciate heme-onc input. They noted that her prognosis is extremely poor and a palliative approach is recommended. I concur with this assessment. * Status post blood products yesterday including platelets. ID - * Severe sepsis with septic shock: * Unclear etiology, could be related to cellulitis of the left chest wall. This appears to be improving. Possible empyema. Please see respiratory section. * Continue meropenem and Caspofungin. Linezolid added 10/08/2020 due to cellulitis and staph aureus growing in the pleural fluid LINES/IV ACCESS - * PIVs x1 * LEFT IJ CVL * RIGHT radial arterial line * Woodard catheter DVT PROPHYLAXIS - * Hold secondary to profound anemia. * SCDs CODE STATUS - * DNR/DNI * Palliative care on board. * Numerous discussions were had yesterday with the patient's sons. I have personally spent 35 minutes of critical care time in the direct management of this patient. This is a life/limb threatening event. This includes time spent evaluating patient, direct bedside care, chart review, placing orders, interpretation of diagnostic studies, discussion with consultants, patient, and family members, as well as other required patient management activities. This time is exclusive of all separately billable procedures, and teaching time and separate from and in addition to any other critical care service time. (2) Sepsis: (3) Pancytopenia: (4) Weakness: (5) Recurrent pleural effusion on left: (6) Anemia: (7) Thrombocytopenic: (8) Lung cancer metastatic to brain: (9) Stage IV adenocarcinoma of lung: Admission and Anticipated Discharge Date Admission Date: October 07, 2020 Subjective Patient seen and examined today. She appears more lethargic. Unable to obtain full review of systems. She denies any obvious pain. Physical Exam Constitutional: + ill appearing and + frail appearing ENMT: external ear and nose normal, oropharynx normal Cardiovascular: Rate/Rhythm: regular rate and regular rhythm Heart Sounds: normal S1 and normal S2 Extremities: + edema Skin: Cellulitis noted on the left chest Neurologic: awake; no focal motor deficits Results & Data Results & Data ([facility]) Vital Signs (Past 12 Hours) Vital Signs Temp Pulse Resp BP Pulse Ox 10/09/20 09:30 98.8 F 104 H 20 110/70 95 10/09/20 09:01 98.8 F 100 H 19 95 10/09/20 09:00 98.8 F 99 H 21 99/70 L 94 10/09/20 08:30 99.1 F 97 H 22 86/69 L 96 10/09/20 08:01 99.0 F 99 H 20 96 10/09/20 08:00 99.0 F 96 H 21 96/74 L 96 10/09/20 07:30 99.0 F 92 H 19 95/67 L 96 10/09/20 07:00 98.8 F 94 H 19 102/66 96 10/09/20 06:45 98.6 F 95 H 17 96 10/09/20 06:30 98.6 F 93 H 17 96/69 L 96 10/09/20 06:16 98.6 F 93 H 20 89/68 L 96 10/09/20 06:00 98.6 F 92 H 18 89/69 L 96 10/09/20 05:30 98.8 F 89 17 89/63 L 96 10/09/20 04:30 99.1 F 95 H 19 91/75 L 97 10/09/20 04:00 99.1 F 90 16 82/59 L 97 10/09/20 03:30 99.1 F 92 H 19 79/66 L 97 10/09/20 03:03 99.0 F 103 H 28 H 95 10/09/20 03:02 99.0 F 100 H 17 98/76 L 95 10/09/20 02:30 98.8 F 90 18 92/59 L 98 10/09/20 02:00 98.8 F 89 19 91/58 L 97 10/09/20 01:30 98.6 F 88 18 97/64 L 97 10/09/20 01:00 98.4 F 87 16 90/68 L 97 10/09/20 00:02 98.2 F 95 H 26 H 95 10/09/20 00:01 98.2 F 91 H 22 89/65 L 97 10/08/20 23:48 98.1 F 94 H 19 99/65 L 96 10/08/20 23:01 97.7 F 92 H 15 89/69 L 97 10/08/20 23:00 97.7 F 91 H 19 97 Vital signs, labs and imaging reviewed Coding Level of Care Code Critical Care 1st 30-74 mins Diagnoses Admitted to intensive care unit Z78.9 Sepsis A41.9 Pancytopenia D61.818 Weakness R53.1 Recurrent pleural effusion on left J90 Anemia D64.9 Anemia type: unspecified type Thrombocytopenic D69.6 Lung cancer metastatic to brain C34.90; C79.31 Stage IV adenocarcinoma of lung C34.90 Time Spent (min) 35 (1) Anemia Anemia type: unspecified type Qualified Code(s): D64.9 - Anemia, unspecified
[2020-10-09] MEDS: CASPOFUNGIN 50 MG in SODIUM CHLORIDE 0.9% 250 ML IV SCH (13:48)
--- NOTE | 2020-10-09 15:52 | Palliative Care Progress Note ---
Date of Service October 09, 2020 Assessment & Plan (1) Palliative care encounter: I talked with the patient. She was able to open her eyes and was able to talk softly and answer some questions. Today, the patient had stated that she was getting tired. I had met with all three sons separately in the later afternoon and had good conversations with them, with their mother present. Angle was able to tell each of them that she was not scared of dying, but was scared to struggling. We discussed comfort care and what that entails. She is still requiring vasoactive support which was explained to the sons is an overarching aggressive treatment measure. She has continued to be weaker and weaker and is, I believe, entering her last and final phase of life due to her lack of immune system and inability to fight sepsis. Raul, specifically, I believe is having the hardest time coping with this big transition as he has been the main caregiver at home and feels a personal responsibility for her care. I provided reassurance that her decline was in no way reflective of his care for his ramírez r. After lengthy conversation, all three sons were in agreement to transition to comfort measures only tomorrow afternoon at 1PM when they come to the hospital. All 3 sons want to be with their mother when the pressors are discontinued. All of the above communicated with the Non Licensed Nuclear Equipment Operator, Hospitalist, and nursing. Palliative will follow. (2) Sepsis: (3) Weakness: (4) Lung cancer metastatic to brain: (5) Anemia: Admission and Anticipated Discharge Date Admission Date: October 07, 2020 Subjective Pt was seen and examined. Lying in bed very weak. Her voice is so soft today Pt said that she feels weak. discussed with her if she spoke to her sons about goal of care and her wishes. She said that she never spoke to them about her wishes, but today was able to talk to two of her three sons at the bedside. Review of Systems Review of Systems: [place] [facility] Assessment Scale: Pain: 1/3 Anxiety: 0/3 Shortness of Breath: 0/3 Tiredness: 2/3 Lack of Appetite: 1/3 Palliative Performance Scale: 20% Physical Exam Constitutional: + ill appearing and + frail appearing ENMT: Nose: + dry nasal mucous membranes Respiratory: normal respiratory effort, lungs clear to auscultation + cough (weak) Auscultation: + diminished lung sounds Cardiovascular: Rate/Rhythm: regular rate and regular rhythm Heart Sounds: normal S1 and normal S2 Extremities: normal capillary refill; no edema Gastrointestinal (Abdomen): Percussion/Palpation: + abdomen tender Skin: no rashes, warm and dry Psychiatric: A+Ox3, euthymic affect Insight: + limited insight Judgement: + limited judgement Results & Data ([facility]) Vital Signs (Past 12 Hours) Vital Signs Temp Pulse Resp BP Pulse Ox 10/09/20 15:30 37.2 C 106 H 23 93/65 L 94 10/09/20 15:00 37.2 C 107 H 21 98/66 L 95 10/09/20 13:30 37.2 C 105 H 19 93/71 L 95 10/09/20 13:00 37.1 C 104 H 19 88/66 L 95 10/09/20 12:30 37.1 C 105 H 20 106/57 L 95 10/09/20 12:00 37.1 C 107 H 23 96/68 L 95 10/09/20 11:54 37.1 C 109 H 22 95/70 L 95 10/09/20 11:30 37.2 C 104 H 21 91/73 L 95 10/09/20 11:23 104 H 110/70 10/09/20 11:00 37.2 C 100 H 19 94/75 L 95 10/09/20 10:30 37.1 C 103 H 23 96/78 L 95 10/09/20 10:00 37.1 C 102 H 21 108/76 95 10/09/20 09:30 37.1 C 104 H 20 110/70 95 10/09/20 09:01 37.1 C 100 H 19 95 10/09/20 09:00 37.1 C 99 H 21 99/70 L 94 10/09/20 08:30 37.3 C 97 H 22 86/69 L 96 10/09/20 08:01 37.2 C 99 H 20 96 10/09/20 08:00 37.2 C 96 H 21 96/74 L 96 10/09/20 07:30 37.2 C 92 H 19 95/67 L 96 10/09/20 07:00 37.1 C 94 H 19 102/66 96 10/09/20 06:45 37.0 C 95 H 17 96 10/09/20 06:30 37.0 C 93 H 17 96/69 L 96 10/09/20 06:16 37.0 C 93 H 20 89/68 L 96 10/09/20 06:00 37.0 C 92 H 18 89/69 L 96 10/09/20 05:30 37.1 C 89 17 89/63 L 96 10/09/20 04:30 37.3 C 95 H 19 91/75 L 97 10/09/20 04:00 37.3 C 90 16 82/59 L 97 PG Care Time/CCT Total # of Minutes Spent Total Time Spent with Patient: Total time spent is greater than 50% in coordination of care (as documented) at patient's floor/unit and/or counseling patient: 45 minutes spent with > 50% of that time spent assessing the patient, discussing goals of care and collaborating with IDT Coding Level of Care Code 61204 Prolonged Care (int'l) Diagnoses Palliative care encounter Z51.5 Sepsis A41.9 Weakness R53.1 Lung cancer metastatic to brain C34.90; C79.31 Anemia D64.9 Anemia type: unspecified type Time Spent (min) 45 (1) Anemia Anemia type: unspecified type Qualified Code(s): D64.9 - Anemia, unspecified
--- NOTE | 2020-10-09 20:03 | Hospitalist Progress Note ---
Date of Service October 09, 2020 Assessment & Plan (1) Severe sepsis: Septic shock Left empyema s/p pleurx cath Meet sepsis criteria with tachycardia, febrile, neutropenia and elevated Lactic acid Currently on pressor with Norepinephrine due to low BP, Vasopressor was discontinued CT chest showed near complete opacification of the left hemithorax. This is secondary to complex left pleural effusion with nonspecific nodular pleural opacities. Interval development of a small left pleural effusion Elevated lactic acid and procalcitonin Pleural cx grew staph species Currently on Meropenem, Zyvox and Caspofungin Continue IV hydrocortisone ID consulted recommended to continue Meropenem and Zyvox for now and discontinued caspofungin Follow up pleural fluid sensitivity and will need a total course of 3-4 weeks of abx Very poor prognosis Continue monitor closely in the ICU (2) Weakness: Mostly due to metastatic hjlfm-svik-pslw cancer with recent chemotherapy and infection from the PleurX site Poor appetite and nausea. Prognosis is very Poor No focal neuro deficit Will consult PT/OT Fall precaution Pleural effusion CT chest showed interval development of a small left pleural effusion PleurX catheter removed Pleural fluid grew staph species Pulmonary on board Pancytopenia Mostly related to chemotherapy CBC worsening with WBC 0.09, hemoglobin 6.8 , and platelets 21 Received 2 units PRBC and 2 unit platelet during the admission course so far Hgb 8.6 and plt 42 Continue monitor CBC Acute kidney Injury Likely secondary to hypovolemia and hypotension in the setting of septic shock and anemia. Creatinine 1.37 today Received adequate IV fluid Continue to avoid nephrotoxic agents Continue monitor BMP Hyponatremia Possible related to SIADH Na 129 today Continue monitor BMP Consider Nephro consult if no improvement Stage IV Adenocarcinoma of the Lung metastatic [id number]-[id number] lung cancer Malignant pleural effusion s/p PleurX catheter insertion Oncology on board - Very poor prognosis to transition to comfort care Palliative care on board for Goal of care Son would like to continue with treatment for today Possible to transition to comfort care tomorrow after 1 PM Hx Pulmonary embolism: Eliquis on hold due to profound anemia and low platelet . Hypothyroidism On Synthroid. Deep venous thrombosis prophylaxis: on SCDs due to profound anemia and low platelet Admission and Anticipated Discharge Date Admission Date: October 07, 2020 Subjective Pt was seen and examined. Lying in bed very weak. Her voice is so soft today Continue to require pressor with levophed Case management spoke to the 3 sons to address goal of care Sons will consider to transition to comfort care possible tomorrow after noon Review of Systems Review of Systems: All systems reviewed & are unremarkable except as noted in Subjective Physical Exam Physical Exam: General- weak, very soft voice Head- atraumatic Eyes- PERRL, EOMI, ENT- oropharynx clear Neck- supple, no JVD Lungs- Diminished BS, Pleurx cath on left side of the chest. Heart- regular rhythm; no murmur Abdomen- normal bowel sounds, soft, nontender Extremities- no calf tenderness, Neuro- alert and awake, EOMI, follow commands, moves extremities Skin- warm & dry, Stage II sacral decubitus ulcer present. Results & Data Results & Data ([facility]) Vital Signs (Past 12 Hours) Vital Signs Temp Pulse Resp BP Pulse Ox 10/09/20 18:30 36.9 C 99 H 17 95 10/09/20 18:00 36.9 C 102 H 23 99/62 L 96 10/09/20 17:30 37.0 C 101 H 18 95 10/09/20 17:00 37.1 C 101 H 19 88/64 L 95 10/09/20 16:30 37.2 C 104 H 23 95 10/09/20 16:00 37.2 C 109 H 24 101/69 94 10/09/20 15:56 104 H 10/09/20 15:55 37.2 C 107 H 21 96/66 L 94 10/09/20 15:30 37.2 C 106 H 23 93/65 L 94 10/09/20 15:00 37.2 C 107 H 21 98/66 L 95 10/09/20 13:30 37.2 C 105 H 19 93/71 L 95 10/09/20 13:00 37.1 C 104 H 19 88/66 L 95 10/09/20 12:30 37.1 C 105 H 20 106/57 L 95 10/09/20 12:00 37.1 C 107 H 23 96/68 L 95 10/09/20 11:54 37.1 C 109 H 22 95/70 L 95 10/09/20 11:30 37.2 C 104 H 21 91/73 L 95 10/09/20 11:23 104 H 110/70 10/09/20 11:00 37.2 C 100 H 19 94/75 L 95 10/09/20 10:30 37.1 C 103 H 23 96/78 L 95 10/09/20 10:00 37.1 C 102 H 21 108/76 95 10/09/20 09:30 37.1 C 104 H 20 110/70 95 10/09/20 09:01 37.1 C 100 H 19 95 10/09/20 09:00 37.1 C 99 H 21 99/70 L 94 10/09/20 08:30 37.3 C 97 H 22 86/69 L 96
[2020-10-10] MEDS: INSULIN ASPART 100 UNITS/ML 3 ML PEN SC SCH ×3 (00:27→11:35)
[2020-10-10] MEDS: HYDROCORTISONE SOD 50 MG in SYRINGE 0 ML IV SCH ×3 (02:32→13:41)
[2020-10-10] MEDS: MEROPENEM 500 MG in SYRINGE 0 ML IV SCH ×2 (02:32→11:28)
[2020-10-10] MEDS: ASCORBIC ACID 1,500 MG, THIAMINE HCL 100 MG in 0.9 % SODIUM CHLORIDE 100 ML IV SCH ×3 (05:06→16:50)
[2020-10-10 05:59] LABS: Hematocrit (blood only) 24.7 % (37-47); Hemoglobin 8.8 g/dL (12.0-16.0); Mean Corpuscular Hemoglobin 28.1 pg (25-34); Mean Corpuscular Hgb Conc 35.6 g/dL (32-36); Mean Corpuscular Volume 78.9 fL (80-100); RDW Coefficient of Variation 19.4 % (11.5-14.5); RDW Standard Deviation 56.7 fL (36.4-46.3); Red Blood Count 3.13 M/uL (4.2-5.4); White Blood Count 0.14 K/uL (4.8-10.8)
[2020-10-10 06:01] LABS: Platelet Count 18 K/uL (130-400); Platelet Estimate SIGNIFIC DECREASED (Normal)
[2020-10-10 06:02] LABS: BUN Creatinine Ratio 41.8 (10-20); Creatinine Clr Calc Pharmacy 45.5 ml/min; Est GFR (African American) 60.4 ml/min; Est GFR (Non-African American) 52.1 ml/min
[2020-10-10 06:05] LABS: Phosphorus 4.2 mg/dl (2.5-4.9)
[2020-10-10] MEDS: LINEZOLID 600 MG/300 ML BAG IV SCH (08:30)
[2020-10-10] MEDS ORDERED: LEVOTHYROXINE SODIUM 50 MCG in SYRINGE 0 ML IV SCH (09:00)
--- NOTE | 2020-10-10 09:14 | Critical Care Progress Note ---
Date of Service October 10, 2020 Assessment & Plan (1) Admitted to intensive care unit: Reason Critically Ill: 65-year-old female in active extremitas with a significant past medical history of stage IV lung cancer with metastatic spread to the liver and brain admitted with sepsis from unknown source as well as pancytopenia with significant anemia. NEURO - * CAM ICU: NEGATIVE * Brain metastases: * Previously completed course of full brain radiation therapy. * Previously on oral Decadron. * No focal neurological deficits currently. * Very lethargic likely related to sepsis and advanced malignancy. CARDIAC/VASCULAR - * Hypotension: * Secondary to septic shock and possible relative adrenal insufficiency. * Continue Levophed and vasopressin. Currently on stress dose steroids. We are weaning Levophed down. * Troponins have been negative. RESPIRATORY - * Stage IV adenocarcinoma of the LEFT-sided lung: * She has large loculated left pleural effusions and complete white out of the left lung. * Pleurx catheter was removed due to local severe cellulitis. Coag negative staph noted in the pleural. Unclear if this represents a biofilm that was present on the Pleurx catheter or whether this is evidence of an empyema. Pleural fluid studies are difficult to interpret in the context of complex effusion related to malignancy. Risks and benefits of placing a pigtail catheter have to be considered given her overall poor prognosis and bleeding risks. Infectious disease has been consulted for telehealth for their input. GI/NUTRITION - * N.p.o. * Aspiration risk RENAL/LYTES - * SERGIO: * Likely secondary to hypovolemia and hypotension in the setting of septic shock and anemia. * Appropriately resuscitated with IV fluids - * Woodard in place - Strict I&Os. ENDO - * No history of diabetes or thyroid disease. * BSGs per unit protocol. ISS --> gtt per unit policy. * Currently on stress dose steroids. HEME - * Pancytopenia: Secondary to chemotherapy agents. * Appreciate heme-onc input. They noted that her prognosis is extremely poor and a palliative approach is recommended. I concur with this assessment. * Status post blood products yesterday including platelets. ID - * Severe sepsis with septic shock: * Unclear etiology, could be related to cellulitis of the left chest wall. This appears to be improving. Possible empyema. Please see respiratory section. * Continue meropenem and Caspofungin. We will discontinue linezolid. LINES/IV ACCESS - * PIVs x1 * LEFT IJ CVL * RIGHT radial arterial line * Woodard catheter DVT PROPHYLAXIS - * Hold secondary to profound anemia. * SCDs CODE STATUS - * DNR/DNI * Palliative care on board. (2) Sepsis: (3) Pancytopenia: (4) Weakness: (5) Recurrent pleural effusion on left: (6) Anemia: (7) Thrombocytopenic: (8) Lung cancer metastatic to brain: (9) Stage IV adenocarcinoma of lung: Admission and Anticipated Discharge Date Admission Date: October 07, 2020 Subjective Patient seen and examined this morning. No significant overnight events. Requiring 0.05 Levophed continuously. She denies any pain. Review of systems unchanged from yesterday. Physical Exam Constitutional: + ill appearing and + frail appearing Eyes: PERRL, conjunctivae normal, anicteric sclerae ENMT: external ear and nose normal, oropharynx normal Cardiovascular: Rate/Rhythm: regular rate and regular rhythm Heart Sounds: normal S1 and normal S2 Extremities: + edema Gastrointestinal (Abdomen): normal bowel sounds, soft, nontender, no hepatosplenomegaly Skin: Cellulitis noted on the left chest Neurologic: awake; no focal motor deficits Psychiatric: A+Ox3, euthymic affect Results & Data Results & Data ([facility]) Vital Signs (Past 12 Hours) Vital Signs Temp Pulse Resp BP Pulse Ox 10/10/20 06:30 98.8 F 100 H 19 97 10/10/20 06:15 98.8 F 101 H 16 97 10/10/20 06:01 98.8 F 102 H 17 97 10/10/20 06:00 98.8 F 101 H 18 101/69 97 10/10/20 05:45 98.8 F 100 H 19 97 10/10/20 05:30 98.8 F 105 H 22 97 10/10/20 05:15 98.8 F 98 H 18 96 10/10/20 05:00 99.0 F 102 H 18 90/66 L 97 10/10/20 04:45 99.0 F 98 H 15 97 10/10/20 04:30 99.0 F 99 H 17 97 10/10/20 04:15 98.8 F 99 H 17 98 10/10/20 04:00 99.0 F 101 H 17 102/72 97 10/10/20 03:45 98.8 F 98 H 17 97 10/10/20 03:30 98.8 F 98 H 17 97 10/10/20 03:15 98.8 F 96 H 16 97 10/10/20 03:00 98.8 F 98 H 19 105/64 97 10/10/20 02:45 98.8 F 99 H 23 97 10/10/20 02:30 98.8 F 97 H 19 97 10/10/20 02:15 98.6 F 95 H 16 97 10/10/20 02:01 98.6 F 96 H 19 97 10/10/20 02:00 98.6 F 96 H 18 92/68 L 97 10/10/20 01:45 98.6 F 98 H 22 96 10/10/20 01:30 98.4 F 97 H 19 97 10/10/20 01:15 98.4 F 93 H 15 96 10/10/20 01:01 98.4 F 93 H 17 97 10/10/20 01:00 98.4 F 94 H 18 97/69 L 97 10/10/20 00:45 98.4 F 96 H 18 97 10/10/20 00:30 98.4 F 92 H 15 96 10/10/20 00:15 98.2 F 92 H 16 97 10/10/20 00:00 98.2 F 92 H 15 95/67 L 97 10/09/20 23:47 99 H 10/09/20 23:45 98.2 F 95 H 18 97 10/09/20 23:30 98.2 F 95 H 21 96 10/09/20 23:15 98.1 F 97 H 20 97 10/09/20 23:00 98.1 F 87 16 103/67 97 10/09/20 22:45 98.1 F 97 H 19 97 10/09/20 22:30 97.9 F 92 H 16 97 10/09/20 22:15 97.9 F 94 H 16 97 10/09/20 22:01 97.7 F 90 17 97 10/09/20 22:00 97.7 F 92 H 18 95/63 L 97 10/09/20 21:45 97.7 F 93 H 22 97 10/09/20 21:30 97.9 F 96 H 22 97 10/09/20 21:15 97.7 F 94 H 17 97 Vital signs, labs and imaging reviewed. Coding Level of Care Code 70706 Subseq Hosp Care Lvl 3 Diagnoses Admitted to intensive care unit Z78.9 Sepsis A41.9 Pancytopenia D61.818 Weakness R53.1 Recurrent pleural effusion on left J90 Anemia D64.9 Anemia type: unspecified type Thrombocytopenic D69.6 Lung cancer metastatic to brain C34.90; C79.31 Stage IV adenocarcinoma of lung C34.90 (1) Anemia Anemia type: unspecified type Qualified Code(s): D64.9 - Anemia, unspecified
[2020-10-10] MEDS: CASPOFUNGIN 50 MG in SODIUM CHLORIDE 0.9% 250 ML IV SCH (13:41)
--- NOTE | 2020-10-10 13:51 | Palliative Care Progress Note ---
Date of Service October 10, 2020 Assessment & Plan (1) Palliative care encounter: I talked with the patient. She was able to open her eyes and was able to talk softly and answer some questions. The patient continues to be expressing she is tired. Her pressors were attempted to be weaned today unsuccessfully and her MAP dropped within minutes. When talking with her and her three sons all together, the patient gave her son permission to allow her to and the son gave her permission to . Angle was able to tell each of them that she was not scared of dying, but was scared to struggling. We discussed comfort care and what that entails. She is still requiring vasoactive support which was explained to the sons is an overarching aggressive treatment measure. She has continued to be weaker and weaker and is, I believe, entering her last and final phase of life due to her lack of immune system and inability to fight sepsis. Raul, specifically, I believe is having the hardest time coping with this big transition as he has been the main caregiver at home and feels a personal res ponsibility for her care. I provided reassurance that her decline was in no way reflective of his care for his mother. After lengthy conversation, all three sons were in agreement to transition to comfort measures. All 3 sons want to be with their mother when the pressors are discontinued, which was communicated with nursing. All non comfort focused meds and treatments have been discontinued and comfort meds appropriately ordered. The hospitalist and blind cleaner are aware of this transition. Life expectancy is hours to a day or two. (2) Sepsis: (3) Weakness: (4) Lung cancer metastatic to brain: (5) Anemia: Admission and Anticipated Discharge Date Admission Date: October 07, 2020 Subjective Pt was seen and examined. Lying in bed very weak. 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 Review of Systems Review of Systems: [place] System Assessment Scale: Pain: 1/3 Anxiety: 0/3 Shortness of Breath: 0/3 Tiredness: 2/3 Lack of Appetite: 1/3 Palliative Performance Scale: 20% Physical Exam Constitutional: + ill appearing and + frail appearing ENMT: Nose: + dry nasal mucous membranes Respiratory: normal respiratory effort, lungs clear to auscultation + cough (weak) Auscultation: + diminished lung sounds Cardiovascular: Rate/Rhythm: regular rate and regular rhythm Heart Sounds: normal S1 and normal S2 Extremities: normal capillary refill; no edema Gastrointestinal (Abdomen): Percussion/Palpation: + abdomen tender Skin: no rashes, warm and dry Psychiatric: A+Ox3, euthymic affect Insight: + limited insight Judgement: + limited judgement Results & Data ([facility]) Vital Signs (Past 12 Hours) Vital Signs Temp Pulse Resp BP Pulse Ox 10/10/20 10:01 37.1 C 102 H 17 93 10/10/20 10:00 37.1 C 104 H 17 89/61 L 94 10/10/20 09:30 37.1 C 101 H 16 81/62 L 94 10/10/20 09:16 97 H 10/10/20 09:15 37.1 C 102 H 18 97/67 L 94 10/10/20 09:01 37.2 C 102 H 20 93 10/10/20 09:00 37.2 C 104 H 23 98/60 L 93 10/10/20 08:00 37.1 C 98 H 18 96/68 L 94 10/10/20 07:00 37.1 C 96 H 15 90/65 L 97 10/10/20 06:30 37.1 C 100 H 19 97 10/10/20 06:15 37.1 C 101 H 16 97 10/10/20 06:01 37.1 C 102 H 17 97 10/10/20 06:00 37.1 C 101 H 18 101/69 97 10/10/20 05:45 37.1 C 100 H 19 97 10/10/20 05:30 37.1 C 105 H 22 97 10/10/20 05:15 37.1 C 98 H 18 96 10/10/20 05:00 37.2 C 102 H 18 90/66 L 97 10/10/20 04:45 37.2 C 98 H 15 97 10/10/20 04:30 37.2 C 99 H 17 97 10/10/20 04:15 37.1 C 99 H 17 98 10/10/20 04:00 37.2 C 101 H 17 102/72 97 10/10/20 03:45 37.1 C 98 H 17 97 10/10/20 03:30 37.1 C 98 H 17 97 10/10/20 03:15 37.1 C 96 H 16 97 10/10/20 03:00 37.1 C 98 H 19 105/64 97 10/10/20 02:45 37.1 C 99 H 23 97 10/10/20 02:30 37.1 C 97 H 19 97 10/10/20 02:15 37.0 C 95 H 16 97 10/10/20 02:01 37.0 C 96 H 19 97 10/10/20 02:00 37.0 C 96 H 18 92/68 L 97 PG Care Time/CCT Total # of Minutes Spent Total Time Spent with Patient: Total time spent is greater than 50% in health unit coordinator rdination of care (as documented) at patient's floor/unit and/or counseling patient: 45 minutes with > 50% of that time spent assessing the patient, discussing goals of care with patient and family, providing symptom management, and collaborating with IDT Coding Level of Care Code 75257 Prolonged Care (int'l) Diagnoses Palliative care encounter Z51.5 Sepsis A41.9 Weakness R53.1 Lung cancer metastatic to brain C34.90; C79.31 Anemia D64.9 Anemia type: unspecified type Time Spent (min) 45 (1) Anemia Anemia type: unspecified type Qualified Code(s): D64.9 - Anemia, unspecified
[2020-10-10] MEDS ORDERED: MoRPHine SULFATE 2 MG/ML CARP IV STA (16:23)
[2020-10-10] MEDS ORDERED: GLYCOPYRROLATE 0.2 MG/ML VIAL IV PRN (16:23)
[2020-10-10] MEDS ORDERED: MoRPHine SULFATE 2 MG/ML CARP IV PRN (16:23)
--- NOTE | 2020-10-10 19:14 | Hospitalist Progress Note ---
Date of Service October 10, 2020 Assessment & Plan (1) Severe sepsis: Septic shock Left empyema s/p pleurx cath Meet sepsis criteria with tachycardia, febrile, neutropenia and elevated Lactic acid Currently on pressor with Norepinephrine due to low BP, Vasopressor was discontinued CT chest showed near complete opacification of the left hemithorax. This is secondary to complex left pleural effusion with nonspecific nodular pleural opacities. Interval development of a small left pleural effusion Elevated lactic acid and procalcitonin Pleural cx grew staph species Currently on Meropenem, Zyvox and Caspofungin Continue IV hydrocortisone ID consulted recommended to continue Meropenem and Zyvox for now and discontinued caspofungin Follow up pleural fluid sensitivity and will need a total course of 3-4 weeks of abx Very poor prognosis Abx was discontinued because pt was transition to comfort care only (2) Weakness: Mostly due to metastatic [id number] cancer with recent chemotherapy and infection from the PleurX site Poor appetite and nausea. Prognosis is very Poor No focal neuro deficit Fall precaution Will keep comfortable Pleural effusion CT chest showed interval development of a small left pleural effusion PleurX catheter removed Pleural fluid grew staph species Pulmonary on board Abx discontinued Continue oxygen supplement Pancytopenia Mostly related to chemotherapy CBC worsening with WBC 0.09, hemoglobin 6.8 , and platelets 21 Received 2 units PRBC and 2 unit platelet during the admission course so far Hgb 8.8 and plt 18 Continue monitor CBC Acute kidney Injury Likely secondary to hypovolemia and hypotension in the setting of septic shock and anemia. 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 Hypothyroidism On Synthroid. Deep venous thrombosis prophylaxis: on SCDs due to profound anemia and low platelet Admission and Anticipated Discharge Date Admission Date: October 07, 2020 Subjective Pt was seen and examined early this morning Lying in bed very weak. Her voice is so soft today Continue to require pressor with levophed palliative care met with sons who plan to transition to comfort care Review of Systems Review of Systems: All systems reviewed & are unremarkable except as noted in Subjective Physical Exam Physical Exam: General- weak, very soft voice Head- atraumatic Eyes- PERRL, EOMI, ENT- oropharynx clear Neck- supple, no JVD Lungs- Diminished BS, Pleurx cath on left side of the chest. Heart- regular rhythm; no murmur Abdomen- normal bowel sounds, soft, nontender Extremities- no calf tenderness, Neuro- alert and awake, EOMI, follow commands, moves extremities Skin- warm & dry, Stage II sacral decubitus ulcer present. Results & Data Results & Data ([facility]) Vital Signs (Past 12 Hours) Vital Signs Temp Pulse Resp BP Pulse Ox 10/10/20 16:00 101 H 92/56 L 10/10/20 15:00 37.3 C 101 H 19 92/56 L 91 10/10/20 14:00 37.3 C 102 H 18 93/59 L 92 10/10/20 13:00 37.4 C 100 H 17 85/55 L 93 10/10/20 12:00 37.3 C 101 H 18 90/59 L 92 10/10/20 11:00 37.3 C 103 H 25 H 87/52 L 93 10/10/20 10:01 37.1 C 102 H 17 93 10/10/20 10:00 37.1 C 104 H 17 89/61 L 94 10/10/20 09:30 37.1 C 101 H 16 81/62 L 94 10/10/20 09:16 97 H 10/10/20 09:15 37.1 C 102 H 18 97/67 L 94 10/10/20 09:01 37.2 C 102 H 20 93 10/10/20 09:00 37.2 C 104 H 23 98/60 L 93 10/10/20 08:00 37.1 C 98 H 18 96/68 L 94
--- NOTE | 2020-10-11 11:08 | Palliative Care Progress Note ---
Date of Service October 11, 2020 Assessment & Plan (1) Palliative care encounter: Patient continues to be on comfort measures for focus of care. Patient has become progressively weaker and weaker. he is still able to talk softly intermittently. All three sons have remained by her side overnight and continue to be present today. I would like spot checks for her blood pressure to see where she is currently, she has been staying in the 70/30 range. Her extremities remain warm to touch. She is making very small amounts of urine and has not had any oral intake for 4 days now. She is having increased secretions, scheduled Robinul. Encourage keeping her mouth and lips moist with anti-cholinergic use. No Morphine use and she does appear comfortable. All questions answered to her three sons who are comfortable and appreciate of her care. Life expectancy a few days. Palliative will follow. (2) Sepsis: (3) Weakness: (4) Lung cancer metastatic to brain: (5) Anemia: (6) Difficulty clearing secretions: She is having increased secretions, scheduled Robinul 0.2 mg IV Q6. Encourage keeping her mouth and lips moist with anti-cholinergic use. 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 med adjustments today. She is comfortable overall. Sons updated. See A/p for further details. Review of Systems Review of Systems: [place] System Assessment Scale: Pain: 1/3 Anxiety: 0/3 Shortness of Breath: 0/3 Tiredness: 2/3 Lack of Appetite: 1/3 Palliative Performance Scale: 20% Physical Exam Constitutional: + ill appearing and + frail appearing ENMT: Nose: + dry nasal mucous membranes Respiratory: normal respiratory effort, lungs clear to auscultation + cough (weak) Auscultation: + diminished lung sounds Cardiovascular: Rate/Rhythm: regular rate and regular rhythm Heart Sounds: normal S1 and normal S2 Extremities: normal capillary refill; no edema Gastrointestinal (Abdomen): Percussion/Palpation: + abdomen tender Skin: no rashes, warm and dry Psychiatric: A+Ox3, euthymic affect Insight: + limited insight Judgement: + limited judgement Results & Data ([facility]) Vital Signs (Past 12 Hours) Vital Signs Temp Pulse Resp Pulse Ox 10/11/20 06:00 37.6 C H 108 H 16 96 10/11/20 05:00 37.6 C H 112 H 17 95 10/11/20 04:00 37.6 C H 105 H 17 97 10/11/20 03:00 37.5 C 106 H 17 96 10/11/20 02:00 37.5 C 115 H 15 97 10/11/20 01:04 100 H 10/11/20 01:00 37.4 C 99 H 15 97 10/11/20 00:00 37.4 C 112 H 20 95 PG Care Time/CCT Total # of Minutes Spent Total Time Spent with Patient: Total time spent is greater than 50% in coordination of care (as documented) at patient's floor/unit and/or counseling patient: 35 minutes with > 50% of that time spent assessing the patient, adjusting symptom management, and collaborating with IDT Coding Level of Care Code 74936 Subseq Hosp Care Lvl 3 Diagnoses Palliative care encounter Z51.5 Sepsis A41.9 Weakness R53.1 Lung cancer metastatic to brain C34.90; C79.31 Anemia D64.9 Anemia type: unspecified type Difficulty clearing secretions Time Spent (min) 35 (1) Anemia Anemia type: unspecified type Qualified Code(s): D64.9 - Anemia, unspecified
[2020-10-11] MEDS ORDERED: GLYCOPYRROLATE 0.2 MG/ML VIAL IV SCH (13:45)
[2020-10-11] MEDS: GLYCOPYRROLATE 0.2 MG/ML VIAL IV SCH ×2 (17:56→20:55)
[2020-10-11] MEDS: NOREPINEPHRINE/D5W 8 MG/508 ML BAG IV SCH (18:45)
--- NOTE | 2020-10-11 19:29 | Hospitalist Progress Note ---
Date of Service October 11, 2020 Assessment & Plan (1) Septic shock: (2) Severe sepsis: (3) Weakness: Stage IV Adenocarcinoma of the Lung metastatic [id number] lung cancer Acute kidney injury Pleural effusion Malignant pleural effusion s/p PleurX catheter insertion Left empyema s/p pleurx cath Meet sepsis criteria with tachycardia, febrile, neutropenia and elevated Lactic acid CT chest showed near complete opacification of the left hemithorax. This is secondary to complex left pleural effusion with nonspecific nodular pleural opacities. Interval development of a small left pleural effusion Elevated lactic acid and procalcitonin Pleural cx grew staph species Oncology on board - Very poor prognosis to transition to comfort care Palliative care on board for Goal of care Palliative care met with all 3 sons and decision made to transition to comfort care only Treatment with pressors and antibiotic were discontinued Continue medication for comfort care with morphine Patient looks comfortable Admission and Anticipated Discharge Date Admission Date: October 07, 2020 Subjective Patient was seen and examined for follow-up for comfort care only Lying in bed with no distress and resting comfortable with her 3 sons present in the room Patient spoke with a soft voice and denies any pain She was made comfort care and transferred out of the ICU Denies any complaints Review of Systems Review of Systems: All systems reviewed & are unremarkable except as noted in Subjective Physical Exam Physical Exam: General- weak, very soft voice Head- atraumatic Eyes- PERRL, EOMI, ENT- oropharynx clear Neck- supple, no JVD Lungs- Diminished BS, Pleurx cath on left side of the chest. Heart- regular rhythm; no murmur Abdomen- normal bowel sounds, soft, nontender Extremities- no calf tenderness, Neuro- alert and awake, EOMI, follow commands, moves extremities Skin- warm & dry, Stage II sacral decubitus ulcer present.
[2020-10-12] MEDS: GLYCOPYRROLATE 0.2 MG/ML VIAL IV SCH ×4 (02:22→20:07)
--- NOTE | 2020-10-12 18:11 | Hospitalist Progress Note ---
Date of Service October 12, 2020 Assessment & Plan (1) Septic shock: (2) Severe sepsis: (3) Weakness: Stage IV Adenocarcinoma of the Lung metastatic [id number] lung cancer Acute kidney injury Pleural effusion Malignant pleural effusion s/p PleurX catheter insertion Left empyema s/p pleurx cath Meet sepsis criteria with tachycardia, febrile, neutropenia and elevated Lactic acid CT chest showed near complete opacification of the left hemithorax. This is secondary to complex left pleural effusion with nonspecific nodular pleural opacities. Interval development of a small left pleural effusion Elevated lactic acid and procalcitonin Pleural cx grew staph species Oncology on board - Very poor prognosis to transition to comfort care Palliative care on board for Goal of care Palliative care met with all 3 sons and decision made to transition to comfort care only Treatment with pressors and antibiotic were discontinued Continue medication for comfort care with morphine Patient looks comfortable Admission and Anticipated Discharge Date Admission Date: October 07, 2020 Subjective Patient was seen and examined for follow-up for comfort care only Lying in bed with no distress and resting comfortable with her 2 sons present in the room spoke in a soft voice and denies any pain She looks comfortable Review of Systems Review of Systems: All systems reviewed & are unremarkable except as noted in Subjective Physical Exam Physical Exam: General- weak, very soft voice Head- atraumatic Eyes- PERRL, EOMI, ENT- oropharynx clear Neck- supple, no JVD Lungs- Diminished BS, Pleurx cath on left side of the chest. Heart- regular rhythm; no murmur Abdomen- normal bowel sounds, soft, nontender Extremities- no calf tenderness, Neuro- alert and awake, EOMI, follow commands, moves extremities Skin- warm & dry, Stage II sacral decubitus ulcer present.
[2020-10-13] MEDS: GLYCOPYRROLATE 0.2 MG/ML VIAL IV SCH (01:24)
--- NOTE | 2020-10-13 05:03 | Death Pronouncement Note ---
Date of Service October 13, 2020 Pronouncement Note Admission Date Admission Date: October 07, 2020 Date and Time of Date of : 10/13/20 Time of : 05:15 Contributing Factors (1) Septic shock: (2) Severe sepsis: (3) Weakness: Summary Additional details: Discharge summary and certificate to be completed by Dr. Laughlin. Additional Data Confirmation of : no pulse, no respirations, no heart sounds and pupils fixed and dilated Family: at bedside Attending/PCP notified?: No Attending physician: Pedro Laughlin MD
--- NOTE | 2020-10-14 09:47 | Discharge Summary ---
Date of Service October 13, 2020 Admission HPI Per Admitting Provider CHIEF COMPLAINT: Weakness. HISTORY OF PRESENT ILLNESS: This is a 65-year-old female with past medical history significant for asthma, frequent episodes of pneumonia, history of metastatic [id number] lung cancer, malignant pleural effusion, status post PleurX catheter, peptic ulcer disease, history of intractable vomiting, brain metastases, migraine, immunodeficiency common variable, depression, fatigue, loss of weight. The patient was initially diagnosed with tbn-[id number] lung cancer in 2013. At that time, she underwent left upper lobectomy in December 2013 and also had 4 cycles of chemo with carboplatin and Taxol chemotherapy. Then again the cancer recurred in 2016 with metastatic [id number]-eilk lung carcinoma. At that time, she had chemotherapy and radiation therapy again. In July of 2020, brain MRI showed enhancing lesions throughout the brain parenchyma compatible with intracranial metastasis and she was treated with steroids. Currently she is off the steroids. Currently, she was started on new chemo as per son.. She was also started on Namenda for cognitive decline and Eliquis for recent PE. Lives with her son. Lately she has become extremely weak. She is not able to even ambulate. She is requiring lot of assistance for ambulation, even with a walker she is not able to ambulate and very poor appetite, not able to eat anything much. Son also noticed sacral decubitus ulcer. Because of this ongoing weakness and poor appetite, nonambulatory status, the patient was brought to the hospital. She has a PleurX catheter in left side of the chest, it was drained about a week ago. The patient is currently talking very slowly, seems to be very weak. Denies any headache, denies any chest pain. Denies any shortness of breath. Denies any cough. Nauseous, but no vomiting. No abdominal pain. Somewhat constipated. Normal bladder movements. No rash anywhere. Some swelling in the lower extremities, but that seems better as per the son. No fevers, no neck pain. Admission Exam Per Admitting Provider GENERAL: The patient is very weak, not in acute distress. VITAL SIGNS: Temperature 36, pulse 115, respiratory rate 20, blood pressure 108/62, oxygen 98% on room air. HEENT: Pupils equal, round, and reactive to light. Oral mucosa dry. NECK: No JVD, no neck masses. CARDIOVASCULAR: S1, S2 heard, regular rate and rhythm, no murmur, no gallop. RESPIRATORY SYSTEM: Normal AP diameter. No accessory muscle use. Diminished breath sounds on the left side. No wheezing. Erythematous changes around Pleurx cath on left side of the chest. ABDOMEN: Soft, bowel sounds present, nontender. No distention. CENTRAL NERVOUS SYSTEM: Somewhat slow to answer, alert and oriented. Speech is in low volume, but clear. No facial droop. Obeys commands. Moves extremities. EXTREMITIES: Mild pedal edema present, no erythema seen. SKIN: Stage II sacral decubitus ulcer present. Principal Diagnosis Septic shock: Severe sepsis: Weakness: Stage IV Adenocarcinoma of the Lung metastatic [id number] lung cancer Acute kidney injury Pleural effusion Left empyema s/p pleurx cath removal Discharge Exam Confirmation of : no pulse, no respirations, no heart sounds and pupils fixed and dilated Discharge Data Allergies Allergy/AdvReac Type Severity Reaction Status Date / Time Cephalosporins Allergy Intermediate ITCHINESS, Verified 10/06/20 21:43 RASH Sulfa (Sulfonamide Allergy Intermediate ITCHY/RASH Verified 10/06/20 21:44 Antibiotics) TO SULFA DRUGS Consultations 10/07/20 00:23 ED Decision to Admit Stat 10/07/20 06:38 Consult [employer]ater Routine 10/07/20 08:00 Consult Pulmonology Routine 10/07/20 08:23 Consult Palliative Care Routine 10/07/20 12:49 Consult Oncology Routine 10/08/20 10:41 Consult Infectious Diseases Routine Ordered Studies 10/07/20 06:30 US point of care ultrasound Urgent 10/08/20 10:37 CT chest diagnostic wo con Urgent XR chest 1V portable CLINICAL HISTORY: f/u. Lung cancer. COMPARISON STUDY: Chest radiograph and chest CT October 08, 2020. FINDINGS: A left internal jugular Sncrjh-l-Igva remains in place. Near complete opacification of the left hemithorax is unchanged. A left pleural effusion is noted. There is a trace right pleural effusion. The appearance of the chest is unchanged. IMPRESSION: No significant change in appearance of the chest. New complete opacification of the left hemithorax. ACT 112: Negative or not required by law. Electronically signed by: Brandon Ragland M.D. 10/09/2020 7:52 AM Dictated: 10/09/20 0750Transcribed: 10/09/[address] chest diagnostic wo con CLINICAL HISTORY: possible empyema COMPARISON STUDY: 09/17/2020 CT DOSE: 0.00 mGy.cm TECHNIQUE: CT of the thorax was performed from the thoracic inlet to the lung bases. Images are reviewed in the axial, sagittal, and coronal planes. IV contrast was not administered for this examination. A dose lowering technique was utilized adhering to the principles of ALARA. FINDINGS: Thyroid: Minimal thyroid tissue is identified. Thoracic aorta: The thoracic aorta is normal in course and caliber, noting standard 3 vessel arch anatomy. Heart: The heart is normal in size. There is trace pericardial fluid. Lungs and pleural spaces: There is near complete opacification of the left hemithorax. There is a complex left pleural effusion with debris. The underlying left lung is atelectatic/consolidated. Areas of lung necrosis/mass not excluded. Evaluation limited due to the lack of intravenous contrast. There are postsurgical changes of left upper lobectomy. There are dependent atelectatic changes within the right lung. There is stable right middle lobe nodularity, likely infectious/postinfectious. There is a small right pleural effusion. Mediastinum: There is no evidence of pathologic mediastinal lymphadenopathy Batsheva: There is no evidence of pathologic hilar adenopathy given the limitations of a noncontrast study Axilla: Left axillary lymph nodes are the upper limits of normal in size. Upper abdomen: Multiple hypodense hepatic lesions remain stable. Skeletal structures: There are no lytic or blastic osseous lesions. IMPRESSION: 1. Study limited due to the lack of intravenous contrast 2. Postsurgical changes of left upper lobectomy 3. Near complete opacification of the left hemithorax. This is secondary to complex left pleural effusion with nonspecific nodular pleural opacities. There is underlying atelectasis/consolidation of the left lower lobe with areas of possible mass/necrosis. 4. Interval development of a small left pleural effusion 5. Prominent nonspecific left axillary lymph nodes 6. Stable right middle lobe nodularity 7. Stable hypodense hepatic lesions ACT 112: Negative or not required by law. Electronically signed by: Bill Damon M.D. 10/08/2020 11:19 AM Dictated: 10/08/20 1103Transcribed: 10/08/20 1103 XR chest 1V portable CLINICAL HISTORY: f/u COMPARISON STUDY: October 07, 2020 FINDINGS: No pneumothorax. Redemonstration of near complete opacification of the left hemithorax associated with silhouetting of the left hemidiaphragm. Few focal lucencies within mid aspect of the left lung are again seen and unchanged since prior. No large infiltrates or consolidative lesions in the right lung. Cardiomediastinal silhouette is stable and obscured on the left. Tracheal air column is midline. No significant pulmonary vascular congestion.. Osseous structures: Mild degenerative changes of the spine. Stable position of left-sided jugular central line. Stable position of left-sided drainage catheter projecting to the anatomical region of the left lower chest. IMPRESSION: 1. Redemonstration of near complete opacification of the left hemithorax. 2. Support apparatus as above. ACT 112: Negative or not required by law. The above report was generated using voice recognition software. It may contain grammatical, syntax or spelling errors. Electronically signed by: Vi Vergara DO 10/08/2020 11:21 AM Dictated: 10/08/20 1116Transcribed: 10/08/20 1116 XR chest 1V portable CLINICAL HISTORY: Chest x-ray status post pleural drainage. COMPARISON STUDY: 10/07/2020 FINDINGS: The left hemithorax remains nearly completely opacified. There are surgical clips in the left hilar region. There is a left internal jugular central venous catheter with its tip projected over the left brachiocephalic vein. A left basilar pleural catheter is again evident. The right lung remains essentially clear.[ IMPRESSION: 1. No significant change in position of the left internal jugular central venous catheter 2. Persistent near complete opacification of the left hemithorax. ACT 112: Negative or not required by law. Electronically signed by: Bill Damon M.D. 10/07/2020 12:37 PM Dictated: 10/07/20 1235Transcribed: 10/07/20 1235 XR chest 1V portable CLINICAL HISTORY: Post line placement. Lung cancer. COMPARISON STUDY: Chest radiograph October 06, 2020. FINDINGS: No pneumothorax is identified. Tip of left internal jugular central line projects over the mediastinum, likely within the left brachiocephalic vein. Near complete opacification of the left hemithorax is unchanged since exam performed on October 06, 2020 and increased since prior chest CT. Postoperative findings within the left hemithorax are noted. Left basilar pleural catheter is in place. IMPRESSION: 1. No pneumothorax following placement of a left internal jugular central line. 2. No change in near complete opacification of the left hemithorax, as described above. ACT 112: Negative or not required by law. Electronically signed by: Brandon Ragland M.D. 10/07/2020 7:29 AM Dictated: 10/07/20 0725Transcribed: 10/07/20724 XR chest 1V portable CLINICAL HISTORY: weakness, lung ca, L pleurx COMPARISON STUDY: Chest CT September 17, 2020. FINDINGS: Left basilar pleural catheter remains in place. Left pleural effusion is likely present. Near complete opacification of left hemithorax is noted. This has significantly progressed since prior examination. There is no pneumothorax. There is no evidence for pulmonary edema. IMPRESSION: Near complete opacification of the left hemithorax which has progressed since prior examination. Left pleural effusion. Left basilar pleural catheter in place. ACT 112: Negative or not required by law. Electronically signed by: Brandon Ragland M.D. 10/07/2020 8:27 AM Dictated: 10/07/20 0825Transcribed: 10/07/20824 Hospital Course (1) Septic shock: (2) Severe sepsis: Septic shock Left empyema s/p pleurx cath Meet sepsis criteria with tachycardia, febrile, neutropenia and elevated Lactic acid Currently on pressor with Norepinephrine due to low BP, Vasopressor was discontinued CT chest showed near complete opacification of the left hemithorax. This is secondary to complex left pleural effusion with nonspecific nodular pleural opacities. Interval development of a small left pleural effusion Elevated lactic acid and procalcitonin Pleural cx grew staph species Currently on Meropenem, Zyvox and Caspofungin Continue IV hydrocortisone ID consulted recommended to continue Meropenem and Zyvox for now and disc ontinued caspofungin Follow up pleural fluid sensitivity and will need a total course of 3-4 weeks of abx Very poor prognosis Abx was discontinued because pt was transition to comfort care only (3) Weakness: Stage IV Adenocarcinoma of the Lung metastatic [id number] lung cancer Acute kidney injury Pleural effusion Malignant pleural effusion s/p PleurX catheter insertion Left empyema s/p pleurx cath Meet sepsis criteria with tachycardia, febrile, neutropenia and elevated Lactic acid CT chest showed near complete opacification of the left hemithorax. This is secondary to complex left pleural effusion with nonspecific nodular pleural opacities. Interval development of a small left pleural effusion Elevated lactic acid and procalcitonin Pleural cx grew staph species Oncology on board - Very poor prognosis to transition to comfort care Palliative care on board for Goal of care Palliative care met with all 3 sons and decision made to transition to comfort care only Treatment with pressors and antibiotic were discontinued Continue medication for comfort care with morphine Patient looks comfortable Total Time Total Time Spent Total Time Spent (In Minutes): 10 minutes Total Time Includes: Examination of the Patient, Discharge Planning, Medication Reconciliation, Communication With Other Providers and Other Discharge Plan Discharge Items Patient Disposition:
== END 2020-10-13 06:45 | disposition expired | DRG 871 ==
LOC: ED 20:42 → SUATTDRO 10-07 01:49 → 2S 10-07 01:49 → 1E 10-07 06:34 → 3W 10-11 09:49